=== PATIENT | female | born 1960 | race Caucasian/White ===

== ENCOUNTER 2019-07-27 12:01 | Emergency (ER) | payer MEDICAID, SELFPAY ==
[2019-07-27 12:04] VITALS: BP 159/74; PULSE 94; RESP 18; TEMP 36.8; O2SAT 92
--- NOTE | 2019-07-27 12:30 | DI.RAD_ITS ---
EXAM: XR CHEST 2V PA LATERAL INDICATION: cough, R rhonchi. COMPARISON: No exams were available for comparison TECHNIQUE: 2D digital imaging was performed. FINDINGS: There is a small opacity in the right lung base laterally. This may represent a small infiltrate or atelectasis. There are no other focal infiltrates. No pleural effusions or pneumothoraces are identi fied. The heart size and pulmonary vasculature are within normal limits. Age-appropriate degenerati ve changes are seen in the spine. IMPRESSION: Right basilar opacity which may represent atelectasis or pneumonia.
--- NOTE | 2019-07-27 12:31 | ED.GENADUL_ITS ---
Discharge Plan Disposition Patient Disposition: HOME Condition: Improving Discharge Details Chief Complaint: GenMedical Clinical Impression: Walking pneumonia Primary Care Provider: Magda,Local ED Provider: Supa Beck Home Meds and New Rx's Prescriptions: New cefdinir 300 mg capsule 300 mg PO Q12H 10 Days Qty: 20 RF: 0 Discharge Instructions Instructions: Pneumonia (ED) Additional Instructions: Continue small, frequent sips of fluids to maintain hydration. Return to the ER for difficulty breathing, persistent high fevers, or any other acute concerns. Please take antibiotics as prescribed. Tylenol and ibuprofen as needed for aches, pains, fever. Please follow-up with regular doctor for recheck if not improved in 5 days time. Stand Alone Forms: Work Release Medical Decision Making 59-year-old female presents from home with 1 week of cough, congestion, general malaise and fatigue. On exam she is afebrile, noted pulse 94, oxygenation 92 to 93% as well as rhonchi at the right base. Differential as includes pneumonia, bronchitis, influenza. Patient given DuoNeb, referred for laboratory testing and chest x-ray. White blood cell count slightly elevated 11.3, hematocrit 35. Chemistries with noted of slight elevation of the BUN at 21. Chest x-ray with right base opacity. Following fluids and inhaler, patient is improving. I will treat her for walking pneumonia with a course of cephalosporin. She is stable and appropriate for trial of outpatient management. HPI General Mode of arrival: ambulatory . Date/Time Provider Initiated Documentation: 07/27/19 12:02 . Limitations to Documentation: no limitations . Information obtained by: patient . History of Present Illness 59 year old F presents to the emergency department with the chief complaint of Cough, congestion, malaise for 1 week, described as moderate, and is localized to the chest. Patient reports no radiation. Patient started experiencing this day(s) and it has been constant. No relieving factors improve symptom(s), No exacerbating factors reported . Patient notes cough, malaise and weakness; denies chest pain and syncope. Patient did receive the following treatments prior to arrival, none Related Data Home Medications Medication Instructions Recorded Confirmed cefdinir 300 mg PO Q12H 10 Days #20 cap 07/27/19 Previous Rx's Medication Instructions Recorded cefdinir 300 mg PO Q12H 10 Days #20 cap 07/27/19 Allergies Allergy/AdvReac Type Severity Reaction Status Date / Time Sulfa (Sulfonamide Allergy Hives Unverified 07/27/19 12:08 Antibiotics) General Stated Complaint: GenMedical SARAH: 3 Review of Systems Narrative: Denies chest pain. She is a smoker. Sick contacts at work. No travel. 6 systems reviewed and otherwise negative [facility] Social History Smoking/Tobacco Use Status: Current every day Tobacco Type: cigarettes Alcohol Intake: never Drug use: Never Do you feel safe at home: Yes Exam Narrative Exam Narrative: GEN: awake, alert, oriented 3. Pleasant, well groomed, interactive. HEAD: Normocephalic, atraumatic ENT: Mucous membranes dry, oropharynx unremarkable, External ear exam unremarkable EYES: PERRL, EOMI NECK: Full ROM, no JOSEE, no menigismus CHEST/RESP: Nontender, right rhonchi, and expiratory wheeze present CARDIOVASCULAR: RRR, no murmur, rub dangelo. 2+ Rad pulse bilateral ABDOMEN: Soft, nontender, no mass. +Bowel sounds EXT: Full ROM, no edema, no rash Neuro: Grossly normal neurologic exam, conversant, interactive. Psych: Speech fluent, thoughts congruent, affect normal Course Vital Signs Vital signs: Vital Signs Temperature 36.8 C 07/27/19 12:04 Pulse 94 H 07/27/19 12:04 Respiratory Rate 18 07/27/19 12:04 Blood Pressure 159/74 H 07/27/19 12:04 Pulse Oximetry 92 L 07/27/19 12:04 Temperature 36.8 C 07/27/19 12:04 Temperature Source Skin 07/27/19 12:04 Pulse 94 H 07/27/19 12:04 Respiratory Rate 18 07/27/19 12:04 Respiratory Effort 07/27/19 12:08 Blood Pressure 159/74 H 07/27/19 12:04 Blood Pressure Position Sitting 07/27/19 12:04 Pulse Oximetry 92 L 07/27/19 12:04 Oxygen Delivery Method Room Air 07/27/19 12:04 Oxygen Flow Rate 0 07/27/19 12:04
[2019-07-27 12:52] LABS: HGB 11.6 g/dL (12.0-15.5); Mean Corp. HGB Concentration 33.1 g/dL (32.0-36.0); Mean Corpuscular Hemoglobin 29.5 pg (27.0-33.0); Mean Corpuscular Volume 89.1 fL (80-95); Mean Platelet Volume 8.7 fL (8.0-11.0); Platelet Count 344 x1000/uL (130-400); RBC 3.93 m/cumm (4.00-5.20); RBC Distribution Width 13.5 % (11.7-14.6); White Blood Cell Count 11.31 k/cumm (4.4-10.8)
[2019-07-27 13:09] LABS: Absolute Lymphocyte Count 2.15 k/cumm (1.2-3.4); Absolute Monocyte Count 0.79 k/cumm (0.11-0.7); Absolute Neutrophil Count 8.26 k/cumm (1.2-6.7); Atypical Lymphocytes % 2; Diff Comment Manual Differential; RBC Morphology Normal
[2019-07-27] MEDS: Albuterol/Ipratropium 3 ML UPD VIAL UPD (13:11)
[2019-07-27 13:14] LABS: ALT 37 U/L (14-59); AST 23 U/L (15-37); Albumin 2.7 g/dL (3.4-5.0); Alkaline Phosphatase 113 U/L (46-116); Anion Gap 6.4 mmol/L (3-11); BUN 21 mg/dL (7-18); Bilirubin, Total 0.4 mg/dL (0.2-1.0); CO2 31.6 mmol/L (21.0-32.0); CREATININE 0.95 mg/dL (0.55-1.02); Calcium 7.9 mg/dL (8.5-10.1); Chloride 102 mmol/L (98-107); Glucose 137 mg/dL (74-106); Magnesium 1.6 mg/dL (1.8-2.4); Potassium 4.2 mmol/L (3.5-5.1); Sodium 140 mmol/L (136-145); Total Protein 7.9 g/dL (6.4-8.2)
[2019-07-27] MEDS: Normal Saline 500 ML IV (13:35)
[2019-07-27] MEDS: cefTRIAXone 1 GM/50 ML BAG IVPB (13:36)
[2019-07-27 14:15] VITALS: BP 108/76; PULSE 82; TEMP 37; O2SAT 94
== END 2019-07-27 14:29 | disposition home or self-care (01) ==
PROVIDERS: Emergency Provider Emergency Medicine
DX: R53.83 Other fatigue (principal); J18.9 Pneumonia, unspecified organism; F17.210 Nicotine dependence, cigarettes, uncomplicated
CPT/HCPCS: 36415; 80053; 87449; 94640; 96361; 96365; 99284; 71046; 83735; 85025; J0696; J7620

== ENCOUNTER 2019-12-11 16:17 | Emergency (ER) | payer MEDICAID, SELFPAY ==
[2019-12-11 16:25] VITALS: BP 157/67; PULSE 103; RESP 20; TEMP 36.5; O2SAT 96
--- NOTE | 2019-12-11 16:31 | ED.GENADUL_ITS ---
Discharge Plan Disposition Patient Disposition: HOME Condition: Fair Discharge Details Chief Complaint: RashLesion Clinical Impression: Cellulitis, Contact dermatitis, Cutaneous fungal infection Primary Care Provider: Magda,Local ED Provider: Alice John Home Meds and New Rx's Prescriptions: New doxycycline hyclate 100 mg tablet 100 mg PO BID Qty: 14 RF: 0 clotrimazole 1 % ointment 1 applic TP BID 14 Days Qty: 56.7 RF: 0 No Action hydrocortisone 0.5 % Lotion 1 applic TOPICAL PRN PRNRF: 0 Discharge Instructions Instructions: Cellulitis (ED), Dermatitis (ED) Additional Instructions: You may use Tylenol and/or ibuprofen as needed for discomfort. 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 Please use the topical antifungal as prescribed, applies to hands and leg. Please take the antibiotics as prescribed, please take the entire course even if symptoms begin to improve. Try to elevate your lower extremities to help with swelling. I have placed a referral for primary care next week to be seen next week. Have also placed a referral to dermatology. If you develop fever/chills, increased pain, spreading of the redness or other new/worsening symptom please seek care urgently once again. Discharge Data Discharge Date/Time-TO BE ENTERED AT DEPARTURE: 12/11/19 17:44 Medical Decision Making <Carlin Callahan MD - Last Filed: 12/18/19 09:44> Patient seen, examined, and discussed with ZAIDA John. Concern for fungal skin infection with superimposed bacterial infection. Plan to treat with topical antifungal and oral antibacterial. Plan for follow- up with dermatology. I agree with treatment plan as discussed/documented. <ZAIDA Guerra - Last Filed: 12/14/19 22:05> Patient is a pleasant 59-year-old female presenting today with chief complaint of bilateral hand and left lower extremity rash. She reports that all of these rashes began proximally 1 month ago. She attributes to rushing deep bilateral hands to change in hands and her toes at work. Patient does work at [employer]. 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 Finds the rash does improve during these times. Has not noted severity of pain but does note itching in the hands. Is not any fevers or chills. Has not noted decreased ADLs associated with this rash. Patient also endorses a rash to the left lower extremity which is also been present for the past month and has been more consistent. She reports that she awoke 1 day to find fairly severe very erythematous rash. States that this area is burning. This rash is circumferential, spares the foot and stops below the knee. No known exposure. She has been using hydrocortisone cream without relief. Has been covering with ABD pads as this does weep. Patient does have serosanguineous fluid on her ABD pads. Patient does not have a local primary care. She does report that she has had DVTs hi storically but is not bursting any posterior calf tenderness. No known trauma. On exam, patient has a dry rash consistent with a contact dermatitis in the bilateral hands. She has no swelling. Does not appear consistent with cellulitis. No areas of swelling or fluctuance to suggest an abscess. She and I discussed avoidance and changing back to her previous hand order processing manager. We discussed basic basic skin care. Will refer for local primary care. Regard to the left lower extremity, and was confused this is cellulitis versus fungal. I did ask Dr. Callahan to evaluate this who feels that likely the patient suffering from both. He advised a topical antifungal as well as an oral antibiotic. I did discuss this plan with the patient who is in agreement. Dressing supplies were supplied by nursing staff. I did encourage elevation of the left lower extremity. She is given strict return precautions. I have asked that she follow-up with primary care in 1 week. All her questions and concerns were addressed and she is in agreement with plan. HPI <Carlin Callahan MD - Last Filed: 12/18/19 09:44> General Date/Time Provider Initiated Documentation: 12/11/19 16:31 . Related Data Home Medications Medication Instructions Recorded Confirmed clotrimazole 1 applic TP BID 14 Days #56.7 gm 12/11/19 doxycycline hyclate 100 mg PO BID #14 tab 12/11/19 hydrocortisone 1 applic TOPICAL PRN PRN 12/11/19 12/11/19 Previous Rx's Medication Instructions Recorded clotrimazole 1 applic TP BID 14 Days #56.7 gm 12/11/19 doxycycline hyclate 100 mg PO BID #14 tab 12/11/19 Allergies Allergy/AdvReac Type Severity Reaction Status Date / Time Sulfa (Sulfonamide Allergy Hives Unverified 12/11/19 16:28 Antibiotics) <ZAIDA Guerra - Last Filed: 12/14/19 22:05> General Mode of arrival: ambulatory . Limitations to Documentation: no limitations . Information obtained by: patient and RN notes reviewed . History of Present Illness 59 year old F presents to the emergency department with the chief complaint of Bilateral hand left lower extremity rash, described as moderate, with intensity rated at 7. Quality is described as burning (And itching), and is localized to the left, right, upper extremity and lower extremity. Patient reports no radiation. Patient started experiencing this month(s) (1) and it has been constant. No relieving factors improve symptom(s), Other factors that worsen symptoms (Has noted rash on hands to be worse with new hand order processing manager at work) . Patient notes no other symptoms.. Patient did receive the following treatments prior to arrival, other (Hydrocortisone cream) General Stated Complaint: RashLesion SARAH: 3 <ZAIDA Guerra - Last Filed: 12/14/19 22:05> Constitutional Constitutional: Reports as per HPI, Denies chills and Denies fever(s) Musculoskeletal Musculoskeletal: Reports as per HPI Integumentary/Breasts Skin/Breast: Reports as per HPI Neurologic Neurologic: Reports as per HPI, Denies sensory deficit and Denies paresthesias PFS <Carlin Callahan MD - Last Filed: 12/18/19 09:44> Medical History H/O deep venous thrombosis (Acute) Surgical History (Updated 12/11/19 @ 16:29 by Sharon Castillo) H/O section (Chronic) Social History Smoking/Tobacco Use Status: Current every day Tobacco Type: cigarettes Alcohol Intake: never Drug use: Never Substance use type: does not use Do you feel safe at home: Yes Do you feel safe in your relationship?: Yes <ZAIDA Guerra - Last Filed: 12/14/19 22:05> Const General: cooperative, healthy appearing, no acute distress, well developed and anxious Nutritional Appearance: well nourished and obese Orientation: alert and awake HENMA Head: normal to inspection Face and sinus: normal facial exam Resp Effort & Inspection: normal respiratory effort, able to speak in complete sentences and no respiratory distress Auscultation: clear to auscultation bilaterally Cardio Rate: regular rate Rhythm: regular rhythm Heart Sounds: S1 normal and S2 normal Skin General skin exam: dry skin (Dry intermittent rash on bilateral hands), no ecchymosis, erythema (Circumferentially left lower extremity), no fluctuance and hypertrophy (Left lower extremity) Neuro General: patient alert and patient awake Cognition: normal cognition Speech: speech normal Gait: normal gait Sensory Exam: no sensory deficits noted Extrem General: capillary refill normal, no joint enlargement, no pedal edema, no calf tenderness, normal gait and no limp Right upper extremity: abnormal to inspection (Dry rash to bilateral hands, good range of motion, brisk capillary refill a) Left upper extremity: abnormal to inspection (Rash otherwise exam normal) Psych Appearance: grossly normal and well kempt Mental Status: mental status grossly normal Speech and Movement: speech and movement normal <ZAIDA Guerra - Last Filed: 12/14/19 22:05> Vital Signs Vital signs: Vital Signs Temperature 36.5 C 12/11/19 16:25 Pulse 103 H 12/11/19 16:25 Respiratory Rate 20 12/11/19 16:25 Blood Pressure 157/67 H 12/11/19 16:25 Pulse Oximetry 96 12/11/19 16:25 Temperature 36.5 C 12/11/19 16:25 Temperature Source Skin 12/11/19 16:25 Pulse 103 H 12/11/19 16:25 Respiratory Rate 20 12/11/19 16:25 Blood Pressure 157/67 H 12/11/19 16:25 Blood Pressure Position Sitting 12/11/19 16:25 Pulse Oximetry 96 12/11/19 16:25 Oxygen Delivery Method Room Air 12/11/19 16:25 Oxygen Flow Rate 0 12/11/19 16:25 Pain Level 7 12/11/19 16:25
--- NOTE | 2019-12-12 11:37 | CMPROGNOTE_ITS ---
- If Service Date Differs Date of service: 12/12/19 Time of Service: 11:37 Care Management Progress Note At the request of ED provider, CM coordinates referral to [facility] and to Elva Moya MD, teledoc, of [facility] to assist Alesia in establishing care with a PCP. Alesia is seen in the ED on 12/11/2019 for cellulitis.
--- NOTE | 2019-12-12 11:37 | PDOC.ERCMPRO ---
- If Service Date Differs Date of service: 12/12/19 Time of Service: 11:37 Care Management Progress Note At the request of ED provider, CM coordinates referral to [facility] and to Elva Moya MD, teledoc, of [facility] to assist Alesia in establishing care with a PCP. Alesia is seen in the ED on 12/11/2019 for cellulitis.
== END 2019-12-11 17:44 | disposition home or self-care (01) ==
PROVIDERS: Emergency Provider Physician Assistant
DX: L03.116 Cellulitis of left lower limb (principal); L24.89 Irritant contact dermatitis due to other agents; B36.9 Superficial mycosis, unspecified
CPT/HCPCS: 99283

== ENCOUNTER 2022-06-12 16:49 | Emergency (ER) | payer MEDICAID, SELFPAY ==
[2022-06-12 17:15] VITALS: BP 137/64; PULSE 93; RESP 22; TEMP 36.4; O2SAT 85
[2022-06-12 17:48] VITALS: BP 128/60; PULSE 94; RESP 19; TEMP 36.7; O2SAT 98
--- NOTE | 2022-06-12 18:00 | DI.RAD_ITS ---
Exam(s) XR PORTABLE CHEST AP EXAM: XR PORTABLE CHEST AP lung apices over penetrated. CLINICAL HISTORY: cough, hypoxia TECHNIQUE: 2D digital imaging was performed. COMPARISON: CR XR CHEST 2V PA LATERAL from 07/27/2019 FINDINGS: LUNGS: Clear. No pleural abnormality seen. HEART: Normal size. AORTA: Normal diameter. BONES: Unremarkable for age. Soft tissues: Unremarkable. IMPRESSION: No acute findings. DATA REPOSITORY: RADIATION DOSE DELIVERED:
[2022-06-12 19:26] LABS: Abs Immature Grans 0.05 10^3/uL (0.0-0.06); Absolute Basophil Count 0.03 10^3/uL (0.0-0.2); Absolute Eosinophil Count 0.07 10^3/uL (0.0-0.7); Absolute Lymphocyte Count 0.92 10^3/uL (1.2-3.4); Absolute Monocyte Count 0.56 10^3/uL (0.1-0.8); Basophils % 0.4; Eosinophils % 0.9; HGB 14.3 g/dL (11.2-15.7); Immature Grans % 0.7; Lymphocytes % 12.2; MCH 29.4 pg (27.0-33.0); MCHC 31.8 % (32.0-36.0); MCV 92 fL (80-95); MPV 9.3 fL (8.0-11.0); Monocytes % 7.4; Neutrophils % 78.4; Platelet Count 224 10^3/uL (130-400); RBC 4.87 10^6/uL (3.93-5.22); RDW 14.5 % (11.7-14.6); RDW-SD 48.8 fL; WBC 7.53 10^3/uL (4.4-10.8)
[2022-06-12 19:28] VITALS: RESP 8
[2022-06-12] MEDS: Albuterol/Ipratropium 3 ML UPD VIAL 9 ML UPD (19:28)
[2022-06-12] MEDS: Dexamethasone 10 MG/ML VIAL IVP (19:29)
--- NOTE | 2022-06-12 19:29 | DI.VRAD_ITS ---
PROCEDURE INFORMATION: Exam: XR Chest Exam date and time: 06/12/2022 6:45 PM Age: 62 years old Clinical indication: Cough TECHNIQUE: Imaging protocol: Radiologic exam of the chest. Views: 1 view. COMPARISON: CR XR CHEST 2V PA LATERAL 07/27/2019 1:00 PM FINDINGS: Lungs: Unremarkable. No consolidation. Pleural spaces: Unremarkable. No pleural effusion. No pneumothorax. Heart/Mediastinum: Unremarkable. No cardiomegaly. Bones/joints: Unremarkable. IMPRESSION: No acute findings. Dictated and Authenticated by: Shawn Benz MD. Ordering:LYNSEY Quiroga MD
[2022-06-12 19:40] LABS: COVID-19 PCR Negative (Negative); Influenza A PCR Negative (Negative); Influenza B PCR Negative (Negative); RSV PCR Negative (Negative)
[2022-06-12 19:41] LABS: ALT 24 U/L (14-59); AST 24 U/L (15-37); Albumin 3.8 g/dL (3.4-5.0); Alkaline Phosphatase 97 U/L (46-116); Anion Gap 6.8 mmol/L (3-11); BUN 20 mg/dL (7-18); Bilirubin, Total 0.7 mg/dL (0.2-1.0); CO2 31.2 mmol/L (21.0-32.0); CREATININE 0.9 mg/dL (0.55-1.02); Chloride 100 mmol/L (98-107); Estimated GFR 72.28 (mL/min/1.73m2); Glucose 114 mg/dL (74-106); Potassium 4.3 mmol/L (3.5-5.1); Sodium 138 mmol/L (136-145)
[2022-06-12 19:42] LABS: Source Nasopharynx
--- NOTE | 2022-06-12 19:50 | ED.GENADUL_ITS ---
Discharge Plan Discharge Details Chief Complaint: SOB Primary Care Provider: None,None ED Provider: Junaid Castillo Home Meds and New Rx's Prescriptions: No Action hydrocortisone 0.5 % Lotion 1 applic TOPICAL PRN PRN doxycycline hyclate 100 mg tablet 100 mg PO BID Qty: 14 0RF Medical Decision Making 62-year-old female history of prior PE was on Coumadin for years has not been on Coumadin for 2 years given has not been able to obtain primary care follow-up presents with cough and wheeze over the past several days worsening today, noted to be hypoxic in the 80s on room air placed on nasal cannula improvement to the mid 90s speaking full sentences expiratory wheeze bilaterally. Nontoxic no acute distress. Patient counseled extensively that given her propensity for thromboembolic phenomenon she should be on an anticoagulant and I encouraged her to let us pursue CTA imaging today to rule out PEs patient is adamant she does not feel as if she is having a PE as it does not feel like her normal symptoms of thromboembolic phenomenon, patient is refusing CTA is amenable to labs and nebulized albuterol as well as steroid treatment will obtain labs chest x-ray breathing treatments disposition pending reassessment. 20: 45 patient resting comfortably feeling better however slightly increasing troponin. Counseled patient regarding findings and discussed admission for car diac evaluation patient is adamant that she would like to go home as it is [birth year] tomorrow. Patient is amenable to staying for 1 more troponin if her troponin is downtrending and she remains asymptomatic consider discharge home with close cardiology follow-up. HPI General Date/Time Provider Initiated Documentation: 06/12/22 18:03 . HPI Narrative: 62-year-old female history of PE was on Coumadin however moved a couple years ago was not able to obtain primary care has been off her anticoagulation for years, presents with cough and wheezing over the past several days worsening today Related Data Home Medications Medication Instructions Recorded Confirmed doxycycline hyclate 100 mg tablet 100 mg PO BID #14 tabs 12/11/19 hydrocortisone 0.5 % lotion 1 applic topical PRN PRN 12/11/19 12/11/19 Previous Rx's Medication Instructions Recorded doxycycline hyclate 100 mg tablet 100 mg PO BID #14 tabs 12/11/19 Allergies Allergy/AdvReac Type Severity Reaction Status Date / Time Sulfa (Sulfonamide Allergy Hives Unverified 12/11/19 16:28 Antibiotics) General Stated Complaint: SOB SARAH: 3 Review of Systems Narrative: Review of Systems Constitutional: negative Eyes: negative ENT: negative Cardiovascular: negative Respiratory: Cough, wheezing Gastrointestinal: negative : negative Musculoskeletal: negative Skin: negative Neurologic: negative Psych: negative PFSH All Active Problems (Updated 01/11/20 @ 00:01 by DEYSI PERES) Walking pneumonia (Acute) Medical History (Updated 01/11/20 @ 00:01 by DEYSI PERES) H/O deep venous thrombosis Surgical History (Updated 12/11/19 @ 16:29 by Sharon Castillo) H/O section Social History Smoking/Tobacco Use Status: Current every day Tobacco Type: cigarettes Smoking risk assessment performed?: Yes Alcohol Intake: never Drug use: Never Substance use type: does not use Do you feel safe at home: Yes Do you feel safe in your relationship?: Yes Exam Narrative Exam Narrative: Physical Examination General: alert, awake, cooperative, resting comfortably, no acute distress HEENT: normocephalic, atraumatic; PERRL, EOM intact, conjunctiva normal; no nasal discharge; moist mucous membranes, oral and pharyngeal mucosa normal, tolerating secretions Neck: supple, trachea midline; full ROM Chest: normal to inspection Respiratory: normal respiratory effort, speaking in full sentences, expiratory wheezing bilaterally Cardiac: regular rate, regular rhythm, S1S2 intact, no murmurs rubs or gallops GI: abdomen soft, non-tender, non-distended; no palpable mass or hepatosplenomegaly Skin: no lesions, rashes or trauma appreciated Neuro: AAOx3, normal speech, moving all extremities Extremities: Chronic appearing venous stasis and edema to level of shins bilaterally Psych: Appropriate mood and affect Course Vital Signs Vital signs: Vital Signs Temperature 36.4 C 06/12/22 17:15 Pulse 93 H 06/12/22 17:15 Respiratory Rate 22 06/12/22 17:15 Blood Pressure 137/64 06/12/22 17:15 Pulse Oximetry 85 L 06/12/22 17:15 Temperature 36.7 C 06/12/22 17:48 Temperature Source Skin 06/12/22 17:48 Pulse 94 H 06/12/22 17:48 Respiratory Rate 19 06/12/22 17:48 Blood Pressure 128/60 06/12/22 17:48 Blood Pressure Position Sitting 06/12/22 17:15 Pulse Oximetry 98 06/12/22 17:48 Oxygen Delivery Method Nasal Cannula 06/12/22 19:28 Oxygen Flow Rate 3 06/12/22 19:28 Pain Level 0 06/12/22 17:48 Lab/Test Results Lab/Test Results: Laboratory Tests Range/Units 06/12/22 06/12/22 06/12/22 18:30 19:04 19:04 WBC (4.4-10.8) 10^3/uL 7.53 RBC (3.93-5.22) 10^6/uL 4.87 Hgb (11.2-15.7) g/dL 14.3 Hct (36.0-46.0) % 45.0 MCV (80-95) fL 92 MCH (27.0-33.0) pg 29.4 MCHC (32.0-36.0) % 31.8 L RDW (11.7-14.6) % 14.5 Plt Count (130-400) 10^3/uL 224 MPV (8.0-11.0) fL 9.3 Immature Gran % 0.7 Neutrophils % 78.4 Lymphocytes % 12.2 Monocytes % 7.4 Eosinophils % 0.9 Basophils % 0.4 Nucleated RBC % (0.0-0.3) % 0.0 Absolute Neutrophils (1.2-6.7) 10^3/uL 5.90 Absolute Lymphocytes (1.2-3.4) 10^3/uL 0.92 L Absolute Monocytes (0.1-0.8) 10^3/uL 0.56 Absolute Eosinophils (0.0-0.7) 10^3/uL 0.07 Absolute Basophils (0.0-0.2) 10^3/uL 0.03 Sodium (136-145) mmol/L 138 Potassium (3.5-5.1) mmol/L 4.3 Chloride (98-107) mmol/L 100 Carbon Dioxide (21.0-32.0) mmol/L 31.2 Anion Gap (3-11) mmol/L 6.8 BUN (7-18) mg/dL 20 H Creatinine (0.55-1.02) mg/dL 0.9 Est GFR (CKD-EPI 2020) (mL/min/1.73m2) 72.28 Glucose (74-106) mg/dL 114 H Calcium (8.5-10.1) mg/dL 9.0 Total Bilirubin (0.2-1.0) mg/dL 0.7 AST (15-37) U/L 24 ALT (14-59) U/L 24 Alkaline Phosphatase (46-116) U/L 97 Total Protein (6.4-8.2) g/dL 9.0 H Albumin (3.4-5.0) g/dL 3.8 COVID-19 Source Nasopharynx SARS-CoV-2 (PCR) (Negative) Negative Influenza Type A (PCR) (Negative) Negative Influenza Type B (PCR) (Negative) Negative RSV (PCR) (Negative) Negative
[2022-06-12] MEDS: Albuterol HFA 8 GM 60 PUFF INH IH (22:33)
--- NOTE | 2022-06-12 23:22 | NUR.NOTE ---
referral to Care Management to establish pcp to f/u next week for shortness of breath.Nursing Note:
--- NOTE | 2022-06-13 16:01 | NUR.NOTE ---
pharmacy called to state that medicaid does not cover albuterol, but will cover ventolin. Conferred with Dr. Callahan who advised that would be an acceptable change.
== END 2022-06-12 21:57 | disposition left against medical advice (07) ==
PROVIDERS: Emergency Provider Emergency Medicine
DX: R05.1 Acute cough (principal); R06.02 Shortness of breath; Z20.822 Contact with and (suspected) exposure to COVID-19; Z53.29 Procedure and treatment not carried out because of patient's decision for other reasons
CPT/HCPCS: 80053; 87637; 96374; 99284; 71045; 85025; J1100; J7620

== ENCOUNTER 2022-06-16 10:18 | Outpatient (CLI) | payer MEDICAID, SELFPAY ==
--- NOTE | 2022-06-16 10:15 | RT.EKG_ITS ---
APPROVED REPORT Exam: Resting ECG Reason for Exam: hypoxic Patient Location: O HR:72 bpm ECG Measurements Heart Rate 72 AXIS IL 191 P 69 QRSd 95 QRS 54 QT 398 T 77 QTc 436 Conclusion Sinus rhythm...normal P axis, V-rate 50- [address] elevation, inferior leads...ST >0.06mV, II III aVF Baseline wander in lead(s) V4
== END 2022-06-16 10:19 | disposition home or self-care (01) ==
LOC: DI.CM 10:22
PROVIDERS: Visit Provider Nurse Practitioner Family
DX: R09.02 Hypoxemia (principal)
CPT/HCPCS: 93010

== ENCOUNTER 2022-06-16 16:49 | Inpatient (IN) | payer MEDICAID, SELFPAY ==
[2022-06-16] VITALS (41 sets, daily range): BP systolic 116–156; BP diastolic 43–110; PULSE 71–90; RESP 14–31; TEMP 36.4–36.9; O2SAT 83–99
--- NOTE | 2022-06-16 17:30 | DI.CT_ITS ---
Exam(s) CT CHEST PE CTA EXAM: CT CHEST PE CTA CLINICAL HISTORY: chest pain hypoxia. TECHNIQUE: Imaging Protocol: CT angiography of the chest was performed using pulmonary embolus karan col. Multi planar reconstructions were performed. CONTRAST MATERIAL: Intravenous: Omnipaque 350 Contrast volume: 100 cc COMPARISON: CR,XR XR PORTABLE CHEST AP from 06/12/2022 FINDINGS: CHEST: PULMONARY ARTERIES: There are no intraluminal filling defects to suggest acute pulmonary emboli. LUNGS: Mild benign-appearing increased markings are noted in the lateral basal segment of the right l ower lobe. No truly confluent infiltrate and no evidence of obvious pulmonary infarction. No pleura l effusions. No focal findings in the trachea. Thin sys strand in the right mainstem bronchus noted which is probably mucus.. MEDIASTINUM: There is no hilar nor mediastinal adenopathy. Visualized thyroid unremarkable. CARDIAC: Heart size is upper normal. There is no pericardial effusion.Caliber of the thoracic aorta is within normal limits. No dissection there is no significant shift of the interventricular septum. PARTIALLY VISUALIZED UPPERMOST ABDOMEN: No obvious findings OSSEOUS: No significant osseous lesions.. IMPRESSION: 1. No evidence of acute pulmonary emboli. No evidence of pulmonary infarction.No pleural effusions. 2. Mild increased markings in the right lower lobe. No associated pleural effusion. Left lung clear . No significant pulmonary nodules. No intrathoracic adenopathy. RADIATION DOSE DELIVERED: 795.15mGy.cm Total DLP DATA REPOSITORY: All CT scans at this facility are submitted to the National Radiology Data Registry (NRDR) Dose Index Registry (DIR) with the [employer] ([employer]). RADIATION OPTIMIZATION: All CT scans at this facility use at least one of these dose optimization te chniques: automated exposure control; mA and/or kV adjustment per patient size (includes targeted exa ms where dose is matched to clinical indication); or iterative reconstruction.
--- NOTE | 2022-06-16 17:45 | RT.EKG_ITS ---
APPROVED REPORT Exam: Resting ECG Reason for Exam: chest pain Patient Location: E HR:75 bpm ECG Measurements Heart Rate 75 AXIS ID 193 P 51 QRSd 87 QRS 30 QT 382 T 68 QTc 426 Conclusion Sinus rhythm. Anteroseptal infarct, age indeterminate. Nonspecific st changess.
[2022-06-16] MEDS: methylPREDNISolone SUCC 125 MG VIAL 80 MG IVP (18:30)
[2022-06-16 19:07] LABS: Abs Immature Grans 0.11 10^3/uL (0.0-0.06); Absolute Basophil Count 0.04 10^3/uL (0.0-0.2); Absolute Lymphocyte Count 2.63 10^3/uL (1.2-3.4); Absolute Neutrophil Count 5.16 10^3/uL (1.2-6.7); Basophils % 0.5; Eosinophils % 1.2; HCT 44.3 % (36.0-46.0); HGB 14.2 g/dL (11.2-15.7); Immature Grans % 1.3; Lymphocytes % 30.4; MCH 29.8 pg (27.0-33.0); MCHC 32.1 % (32.0-36.0); MCV 93 fL (80-95); MPV 9.1 fL (8.0-11.0); Monocytes % 6.9; Neutrophils % 59.7; Platelet Count 245 10^3/uL (130-400); RBC 4.77 10^6/uL (3.93-5.22); RDW 14.6 % (11.7-14.6); RDW-SD 49.2 fL; WBC 8.64 10^3/uL (4.4-10.8)
[2022-06-16] MEDS: Normal Saline Flush 10 ML SYR IVP (19:25)
[2022-06-16] MEDS: Omnipaque 350 MG/ML 100 ML BTL IJ (19:26)
[2022-06-16] MEDS: Normal Saline - Diluent 50 ML VIAL IJ (19:27)
[2022-06-16 19:32] LABS: ALT 29 U/L (14-59); AST 21 U/L (15-37); Albumin 3.6 g/dL (3.4-5.0); Alkaline Phosphatase 97 U/L (46-116); Anion Gap 3.6 mmol/L (3-11); BUN 25 mg/dL (7-18); Bilirubin, Total 0.3 mg/dL (0.2-1.0); CO2 34.4 mmol/L (21.0-32.0); CREATININE 0.8 mg/dL (0.55-1.02); Calcium 9.3 mg/dL (8.5-10.1); Chloride 104 mmol/L (98-107); Estimated GFR 83.26 (mL/min/1.73m2); Glucose 115 mg/dL (74-106); NT-proBNP 60 pg/mL (<300); Sodium 142 mmol/L (136-145); Total Protein 8.8 g/dL (6.4-8.2); Troponin I < 50 ng/L (<or=60)
--- NOTE | 2022-06-16 19:46 | DI.VRAD_ITS ---
PROCEDURE INFORMATION: Exam: CTA Chest With Contrast Exam date and time: 06/16/2022 7:23 PM Age: 62 years old Clinical indication: Other: Chest pain hypoxia TECHNIQUE: Imaging protocol: Computed tomographic angiography of the chest with contrast. 3D rendering (Not supervised by radiologist): MIP and/or 3D reconstructed images were created by the technologist. Contrast material: OMNIPAQUE 350; Contrast volume: 100 ml; Contrast route: INTRAVENOUS (IV); COMPARISON: XR PORTABLE CHEST AP 06/12/2022 6:45 PM FINDINGS: Pulmonary arteries: No pulmonary emboli. Aorta: No aortic aneurysm. No aortic dissection. Lungs: Minimal subsegmental atelectasis versus scarring in the right lower lobe. No consolidation. No masses. Pleural spaces: Unremarkable. No pneumothorax. No pleural effusion. Heart: Unremarkable. No cardiomegaly. No pericardial effusion. Lymph nodes: Unremarkable. No enlarged lymph nodes. Bones/joints: Unremarkable. No acute fracture. Soft tissues: Unremarkable. Faint simple cyst in the liver suspected IMPRESSION: No acute findings. Dictated and Authenticated by: Luther Lowery MD. Ordering:CHRISTOPHER Tena MD
[2022-06-16] MEDS: Albuterol/Ipratropium 3 ML UPD VIAL 6 ML UPD (20:04)
[2022-06-16 21:48] LABS: BE (Venous) 8 mmol/L (-2-3); HCO3 (Venous) 34 mmol/L (23-28); O2 Sat (Venous) 62 %; TCO2 (Venous) 31 mmol/L (24-29); pH (Venous) 7.35 (7.31-7.41); pO2 (Venous) 32 mmHg
[2022-06-16 21:50] LABS: pCO2 (Venous) 61 mmHg (41-51)
[2022-06-16] MEDS: Albuterol 2.5 MG/3 ML INH SOLN VIAL UPD (21:56)
[2022-06-16] MEDS: Doxycycline Hyclate 100 MG CAP PO (21:56)
--- NOTE | 2022-06-16 22:06 | W.PM.HP.N ---
Date of service: 06/16/22 Time of Service: 22:06 Assessment and Plan Assessment and plan (1) Acute respiratory failure with hypoxia and hypercarbia: Start date: 06/16/22 Status: Acute Assessment and plan: This is a 62-year-old lady being admitted for hypoxemia and slight hypercarbia which appears to be acute on chronic. She is a smoker with increased upper airway plugging which is clearing slowly with nebulizer treatments and Solu-Medrol IV. She is not requiring oxygen supplementation which will be placed at a lower level with her CO2 retention. She is obese which also may contribute to weight related respiratory failure. She most likely does have sleep apnea. She also may have bronchitis and will be placed on doxycycline. She states that she will not stay more than 24 hours but we will treat her aggressively as an inpatient with outpatient care hopefully to include smoking cessation, weight loss and follow-up with pulmonary and sleep lab. She is a full code. (2) Tobacco abuse disorder: Status: Chronic Assessment and plan: Advised smoking sensation. (3) COPD exacerbation: Status: Chronic Assessment and plan: Patient has evidence of chronic COPD with CO2 retention. She should follow-up with pulmonology and sleep lab with probable sleep apnea with her morbid obesity. She should be more aggressive with treatment of these problems. This also will increase her chances of thromboembolic events which appear to be an inherited tendency. Patient should go back on Coumadin. (4) Thromboembolic disorder: Status: Chronic Assessment and plan: Patient needs return to Coumadin therapy with close follow-up. Weight loss and tobacco cessation would also be advised. History of Present Illness History of Present Illness Chief Complaint: Dyspnea upon exertion with hypoxemia Narrative: This is a 62-year-old female patient who did have been [place] with most of her care rendered at [facility] who moved to this area about 5 years ago and never has reestablished with a physician. She was on Coumadin most her life having recurrent pulmonary emboli and thromboembolic events which would respond only to Coumadin and not Eliquis or other treatments. She is overweight and smokes tobacco. She reported to the ED with increasing shortness of breath and cough as well as hypoxemia which had been persisting over the last several days. She had no significant fever. She was seen in the ED but decided to go home and after going to her primary care physician's office the day of admission she was sent back to the ED with hypoxemia. In the ED she was found to have extreme bronchospasm and hypoxemia and responded to nebulizers frequently. When I saw the patient she was speaking comfortably but had continued expiratory wheezing and upper airway noise with prolonged expiration and hypoxemia. She agreed to stay for continued treatment with p.o. doxycycline and IV Solu-Medrol as well as frequent nebulizer treatments. She does not want to be on home O2. She does wish to go back on Coumadin and will establish this with her local PCP. She is a full code but does seem to refuse care and make risky decisions on healthcare and lifestyle. Review of Systems Narrative: 13 point review of systems otherwise unrevealing or stable. PFSH All Active Problems (Updated 06/17/22 @ 07:45 by Andriy Armijo) Thromboembolic disorder (Chronic) COPD exacerbation (Chronic) Tobacco abuse disorder (Chronic) Acute respiratory failure with hypoxia and hypercarbia (Acute) Walking pneumonia (Acute) Hypoxia (Acute) Medical History (Updated 06/17/22 @ 07:45 by Andriy Armijo) H/O deep venous thrombosis Surgical History H/O section Social History Smoking/Tobacco Use Status: Current every day Tobacco Type: cigarettes Smoking risk assessment performed?: Yes Alcohol Intake: never Drug use: Never Substance use type: does not use Do you feel safe at home: Yes Do you feel safe in your relationship?: Yes Meds Allergies and Home Medications Allergies Allergy/AdvReac Type Severity Reaction Status Date / Time Sulfa (Sulfonamide Allergy Hives Unverified 06/16/22 09:46 Antibiotics) Home Medications Medication Instructions Recorded Confirmed Type albuterol sulfate 90 mcg/actuation 2 puff inhalation Q6H PRN 06/12/22 Rx aerosol inhaler shortness of breath or wheezing #6.7 grams Exam Narrative Exam Narrative: General: Patient appears older than stated age, morbidly obese, alert and oriented x3 and speaking comfortably without short sentences. She is in no acute distress. HEENT: Normocephalic, coarsened facial features. Eyes with pupils equal and react to light symmetrically, extraocular movement intact and sclera anicteric. Oropharynx with dry mucosa. Many missing teeth with discoloration and caries. Neck: Supple without JVD. Back: Stooped posture without CVA tenderness. Lungs: Bronchovesicular breath sounds diffusely with inspiration with no focalizing rales, markedly prolonged expiratory phase with prolonged expiratory wheeze and rhonchi as well as coarse crackles not focalizing. Decreased aeration bilaterally. Heart: Regular rate and rhythm with no murmurs gallops appreciated. Breast: Exam deferred. Abdomen: Obese with large pannus, soft and nontender to palpation with no palpable hepatosplenomegaly. Genitalia/rectal: Exam deferred. Extremities: Brawny, nonpitting edema over left more than right lower extremity with skin atrophy circumferentially more on the left than right. Left is 3-4+ swelling and right is 2-3+ swelling. No ulcerations but dry atrophic scars over left leg. Erythema over left leg. Hyperpigmentation and hypopigmentation over left leg. Fair capillary refill. No clubbing or cyanosis. Skin: Skin tears over lower extremities, otherwise normal color, warm and dry. Neuro: Cranial nerves II through XII gross intact, no focalized motor deficits. Psych: Slightly agitated and flattened affect being very demanding and wanting to control decision making. Mood essentially normal. No abnormal thought processes. Remote and recent memory intact. Results Imaging Imaging Studies: Exam: CTA Chest With Contrast Exam date and time: 06/16/2022 7:23 PM Age: 62 years old Clinical indication: Other: Chest pain hypoxia TECHNIQUE: Imaging protocol: Computed tomographic angiography of the chest with contrast. 3D rendering (Not supervised by radiologist): MIP and/or 3D reconstructed images were created by the technologist. Contrast material: OMNIPAQUE 350; Contrast volume: 100 ml; Contrast route: INTRAVENOUS (IV);? COMPARISON: XR PORTABLE CHEST AP 06/12/2022 6:45 PM FINDINGS: Pulmonary arteries: No pulmonary emboli. Aorta: No aortic aneurysm. No aortic dissection. Lungs:? Minimal subsegmental atelectasis versus scarring in the right lower lobe. No consolidation. No masses. Pleural spaces: Unremarkable. No pneumothorax. No pleural effusion. Heart: Unremarkable. No cardiomegaly. No pericardial effusion. Lymph nodes: Unremarkable. No enlarged lymph nodes. Bones/joints: Unremarkable. No acute fracture. Soft tissues: Unremarkable. Faint simple cyst in the liver suspected IMPRESSION: No acute findings. Labs Result diagrams: 06/17/22 06:32 06/17/22 06:32 Labs: Laboratory Results - last 24 hr 06/16/22 06/16/22 06/16/22 19:00 19:00 20:42 WBC 8.64 RBC 4.77 Hgb 14.2 Hct 44.3 MCV 93 MCH 29.8 MCHC 32.1 RDW 14.6 Plt Count 245 MPV 9.1 Immature Gran % 1.3 Neutrophils % 59.7 Lymphocytes % 30.4 Monocytes % 6.9 Eosinophils % 1.2 Basophils % 0.5 Nucleated RBC % 0.0 Absolute Neutrophils 5.16 Absolute Lymphocytes 2.63 Absolute Monocytes 0.60 Absolute Eosinophils 0.10 Absolute Basophils 0.04 VBG pH VBG pCO2 VBG pO2 VBG HCO3 VBG Total CO2 VBG O2 Saturation VBG Base Excess Sodium 142 Potassium 4.0 Chloride 104 Carbon Dioxide 34.4 H Anion Gap 3.6 BUN 25 H Creatinine 0.8 Est GFR (CKD-EPI 2020) 83.26 Glucose 115 H Calcium 9.3 Total Bilirubin 0.3 AST 21 ALT 29 Alkaline Phosphatase 97 Troponin I < 50 Cancelled NT-Pro-B Natriuret Pep 60 Total Protein 8.8 H Albumin 3.6 06/16/22 21:44 WBC RBC Hgb Hct MCV MCH MCHC RDW Plt Count MPV Immature Gran % Neutrophils % Lymphocytes % Monocytes % Eosinophils % Basophils % Nucleated RBC % Absolute Neutrophils Absolute Lymphocytes Absolute Monocytes Absolute Eosinophils Absolute Basophils VBG pH 7.35 VBG pCO2 61 H* VBG pO2 32 VBG HCO3 34 H VBG Total CO2 31 H VBG O2 Saturation 62 VBG Base Excess 8 H Sodium Potassium Chloride Carbon Dioxide Anion Gap BUN Creatinine Est GFR (CKD-EPI 2020) Glucose Calcium Total Bilirubin AST ALT Alkaline Phosphatase Troponin I NT-Pro-B Natriuret Pep Total Protein Albumin Last Vital Signs Temp 36.9 C 06/16/22 17:18 Pulse 83 06/16/22 20:32 Resp 26 H 06/16/22 20:18 BP 116/43 L 06/16/22 20:32 Pulse Ox 89 L 06/16/22 20:32 Time Spent Time spent with Patient: >75 minutes Time was spent: preparing to see the patient(eg.review tests), obtaining and/or reviewing separately otained hiistory, ordering medications,tests, procedures, indepentently interpreting results, counseling the patient and care coordination
--- NOTE | 2022-06-16 22:27 | W.ED.GENAD ---
Discharge Plan Disposition Patient Disposition: Admit to [facility] Condition: Serious Discharge Details Clinical Impression: COPD exacerbation, Acute respiratory failure with hypoxia and hypercarbia, Tobacco abuse disorder Primary Care Provider: None,None ED Provider: Mallika Melton Home Meds and New Rx's Prescriptions: No Action albuterol sulfate 90 mcg/actuation HFA aerosol inhaler 2 puff inhalation Q6H PRN (Reason: shortness of breath or wheezing) Qty: 6.7 0RF Medical Decision Making This 62-year-old female who presents with shortness of breath and some intermittent chest discomfort presents moderate respiratory distress CTA was ordered secondary to comorbidities which does not show acute abnormality per radiology interpretation my review Troponin and BNP are negative, given patient's history of tobacco abuse and current presentation, I suspect that she is in acute respiratory failure secondary to bronchitis with likely history of undiagnosed COPD She has hypoxic upon arrival, 89% on room air After 3 DuoNeb treatments, patient is 86% resting, with ambulation she desats to 81%, she is not moving air now and initially her lungs were very tight She will receive another albuterol nebulizer treatment She received 80 mg of Solu-Medrol for likely COPD She will receive doxycycline 100 mg p.o. She has no leukocytosis or evidence of infectious etiology of symptoms Secondary to hypoxic respiratory failure, will start patient on oxygen, she is on 2 L currently Case was discussed with Dr. Armijo is willing to admit patient at this time Diagnostic labs were reviewed by me and with patient EKG does not show evidence of acute abnormality Will be admitted to the hospital on telemetry monitoring HPI General Date/Time Provider Initiated Documentation: 06/16/22 17:22. HPI Narrative: This 62-year-old female with history of coagulopathy previously anticoagulated on Coumadin for history of pulmonary embolism presents with report of shortness of breath with upper respiratory symptoms that started 1 week ago. She is having shortness of breath with any sort of exertion. She denies any fever or chills. She denies any chest discomfort or new calf pain or swelling. She does smoke tobacco on a daily basis. She denies any additional illicit drug use. Sugar self on Coumadin approximately 7 years ago. Does not currently have a primary care physician. Related Data Home Medications Medication Instructions Recorded Confirmed albuterol sulfate 90 mcg/actuation 2 puff inhalation Q6H PRN 06/12/22 aerosol inhaler shortness of breath or wheezing #6.7 grams Previous Rx's Medication Instructions Recorded albuterol sulfate 90 mcg/actuation 2 puff inhalation Q6H PRN 06/12/22 aerosol inhaler shortness of breath or wheezing #6.7 grams Allergies Allergy/AdvReac Type Severity Reaction Status Date / Time Sulfa (Sulfonamide Allergy Hives Unverified 06/16/22 09:46 Antibiotics) General Stated Complaint: SOB SARAH: 3 Review of Systems All systems reviewed & are unremarkable except as noted in HPI and below PFSH All Active Problems (Updated 06/16/22 @ 22:32 by ZAIDA Horn) COPD exacerbation (Acute) Tobacco abuse disorder (Acute) Acute respiratory failure with hypoxia and hypercarbia (Acute) Walking pneumonia (Acute) Hypoxia (Acute) Medical History (Updated 06/16/22 @ 22:32 by ZAIDA Horn) H/O deep venous thrombosis Surgical History (Updated 12/11/19 @ 16:29 by Sharon Castillo) H/O section Social History Smoking/Tobacco Use Status: Current every day Tobacco Type: cigarettes Smoking risk assessment performed?: Yes Alcohol Intake: never Drug use: Never Substance use type: does not use Do you feel safe at home: Yes Do you feel safe in your relationship?: Yes Exam Const General: cooperative, comfortable and no acute distress Eyes Sclera: sclerae normal Resp Effort & Inspection: tachypneic Auscultation: diminished lung sounds and wheezes Other: Moderate respiratory distress Cardio Rate: regular rate Rhythm: regular rhythm GI Inspection: normal to inspection Skin General skin exam: no rashes or lesions noted Neuro General: patient alert and patient oriented x3 Extrem Other: 1+ edema to bilateral lower extremities, neurovascularly intact Course Vital Signs Vital signs: Vital Signs Temperature 36.9 C 06/16/22 17:18 Pulse 81 06/16/22 17:18 Respiratory Rate 22 06/16/22 17:18 Blood Pressure 150/77 H 06/16/22 17:18 Pulse Oximetry 86 L 06/16/22 17:18 Temperature 36.9 C 06/16/22 17:18 Temperature Source Skin 06/16/22 17:18 Pulse 83 06/16/22 20:32 Pulse 77 06/16/22 20:10 Respiratory Rate 26 H 06/16/22 20:18 Respiratory Effort 06/16/22 17:28 Blood Pressure 116/43 L 06/16/22 20:32 Blood Pressure Mean 62 06/16/22 20:32 Blood Pressure Position Sitting 06/16/22 17:18 Pulse Oximetry 89 L 06/16/22 20:32 Oxygen Delivery Method Room Air 06/16/22 17:18 Oxygen Flow Rate 0 06/16/22 17:18 Pain Level 0 06/16/22 17:18 Lab/Test Results Lab/Test Results: Laboratory Tests Range/Units 06/16/22 06/16/22 06/16/22 19:00 19:00 20:42 WBC (4.4-10.8) 10^3/uL 8.64 RBC (3.93-5.22) 10^6/uL 4.77 Hgb (11.2-15.7) g/dL 14.2 Hct (36.0-46.0) % 44.3 MCV (80-95) fL 93 MCH (27.0-33.0) pg 29.8 MCHC (32.0-36.0) % 32.1 RDW (11.7-14.6) % 14.6 Plt Count (130-400) 10^3/uL 245 MPV (8.0-11.0) fL 9.1 Immature Gran % 1.3 Neutrophils % 59.7 Lymphocytes % 30.4 Monocytes % 6.9 Eosinophils % 1.2 Basophils % 0.5 Nucleated RBC % (0.0-0.3) % 0.0 Absolute Neutrophils (1.2-6.7) 10^3/uL 5.16 Absolute Lymphocytes (1.2-3.4) 10^3/uL 2.63 Absolute Monocytes (0.1-0.8) 10^3/uL 0.60 Absolute Eosinophils (0.0-0.7) 10^3/uL 0.10 Absolute Basophils (0.0-0.2) 10^3/uL 0.04 VBG pH (7.31-7.41) VBG pCO2 (41-51) mmHg VBG pO2 mmHg VBG HCO3 (23-28) mmol/L VBG Total CO2 (24-29) mmol/L VBG O2 Saturation % VBG Base Excess (-2-3) mmol/L Sodium (136-145) mmol/L 142 Potassium (3.5-5.1) mmol/L 4.0 Chloride (98-107) mmol/L 104 Carbon Dioxide (21.0-32.0) mmol/L 34.4 H Anion Gap (3-11) mmol/L 3.6 BUN (7-18) mg/dL 25 H Creatinine (0.55-1.02) mg/dL 0.8 Est GFR (CKD-EPI 2020) (mL/min/1.73m2) 83.26 Glucose (74-106) mg/dL 115 H Calcium (8.5-10.1) mg/dL 9.3 Total Bilirubin (0.2-1.0) mg/dL 0.3 AST (15-37) U/L 21 ALT (14-59) U/L 29 Alkaline Phosphatase (46-116) U/L 97 Troponin I (<or=60) ng/L < 50 Cancelled NT-Pro-B Natriuret Pep (<300) pg/mL 60 Total Protein (6.4-8.2) g/dL 8.8 H Albumin (3.4-5.0) g/dL 3.6 Range/Units 06/16/22 21:44 WBC (4.4-10.8) 10^3/uL RBC (3.93-5.22) 10^6/uL Hgb (11.2-15.7) g/dL Hct (36.0-46.0) % MCV (80-95) fL MCH (27.0-33.0) pg MCHC (32.0-36.0) % RDW (11.7-14.6) % Plt Count (130-400) 10^3/uL MPV (8.0-11.0) fL Immature Gran % Neutrophils % Lymphocytes % Monocytes % Eosinophils % Basophils % Nucleated RBC % (0.0-0.3) % Absolute Neutrophils (1.2-6.7) 10^3/uL Absolute Lymphocytes (1.2-3.4) 10^3/uL Absolute Monocytes (0.1-0.8) 10^3/uL Absolute Eosinophils (0.0-0.7) 10^3/uL Absolute Basophils (0.0-0.2) 10^3/uL VBG pH (7.31-7.41) 7.35 VBG pCO2 (41-51) mmHg 61 H* VBG pO2 mmHg 32 VBG HCO3 (23-28) mmol/L 34 H VBG Total CO2 (24-29) mmol/L 31 H VBG O2 Saturation % 62 VBG Base Excess (-2-3) mmol/L 8 H Sodium (136-145) mmol/L Potassium (3.5-5.1) mmol/L Chloride (98-107) mmol/L Carbon Dioxide (21.0-32.0) mmol/L Anion Gap (3-11) mmol/L BUN (7-18) mg/dL Creatinine (0.55-1.02) mg/dL Est GFR (CKD-EPI 2020) (mL/min/1.73m2) Glucose (74-106) mg/dL Calcium (8.5-10.1) mg/dL Total Bilirubin (0.2-1.0) mg/dL AST (15-37) U/L ALT (14-59) U/L Alkaline Phosphatase (46-116) U/L Troponin I (<or=60) ng/L NT-Pro-B Natriuret Pep (<300) pg/mL Total Protein (6.4-8.2) g/dL Albumin (3.4-5.0) g/dL Critical Care Time Critical Care Time Critical Care Time: Yes Total Critical Care Time: 45 Attestation: Approximately 45 minutes of critical care time secondary to acute hypoxic respiratory failure, 2 L of oxygen supplemented, CTA diagnostic imaging interpretation reviewed Diagnostic lab interpretation and review, telemetry monitoring, admission to the hospital, DuoNeb administration, Solu-Medrol administration
[2022-06-16 22:36] LABS: COVID-19 PCR Negative (Negative); Influenza A PCR Negative (Negative); Influenza B PCR Negative (Negative); RSV PCR Negative (Negative)
[2022-06-16 22:40] LABS: Source Nasopharynx
[2022-06-16 23:01] LABS: TSH (W/Ref FT4) 2.03 uIU/mL (0.36-3.74)
[2022-06-17] VITALS (15 sets, daily range): BP systolic 126–165; BP diastolic 64–77; PULSE 70–111; RESP 4–32; TEMP 36.4–36.8; O2SAT 84–99
[2022-06-17] MEDS: Albuterol/Ipratropium 3 ML UPD VIAL UPD ×3 (00:13→11:46)
[2022-06-17] MEDS: Normal Saline 1,000 ML 100 ML IV (00:38)
[2022-06-17] MEDS: methylPREDNISolone SUCC 40 MG VIAL 80 MG IVP (02:45)
[2022-06-17 06:56] LABS: HCT 43.2 % (36.0-46.0); HGB 13.5 g/dL (11.2-15.7); MCH 29.2 pg (27.0-33.0); MCHC 31.3 % (32.0-36.0); MCV 94 fL (80-95); MPV 9.2 fL (8.0-11.0); Platelet Count 241 10^3/uL (130-400); RBC 4.62 10^6/uL (3.93-5.22); RDW 14.6 % (11.7-14.6); RDW-SD 49.4 fL
[2022-06-17 07:13] LABS: ALT 23 U/L (14-59); AST 15 U/L (15-37); Albumin 3.4 g/dL (3.4-5.0); Alkaline Phosphatase 88 U/L (46-116); Anion Gap 8.2 mmol/L (3-11); BUN 25 mg/dL (7-18); Bilirubin, Total 0.2 mg/dL (0.2-1.0); CO2 31.8 mmol/L (21.0-32.0); CREATININE 0.8 mg/dL (0.55-1.02); Calcium 9.3 mg/dL (8.5-10.1); Chloride 101 mmol/L (98-107); Estimated GFR 83.26 (mL/min/1.73m2); Glucose 147 mg/dL (74-106); Potassium 4.7 mmol/L (3.5-5.1); Sodium 141 mmol/L (136-145); Total Protein 8.4 g/dL (6.4-8.2)
[2022-06-17] MEDS: predniSONE 20 MG TAB 40 MG PO (08:42)
[2022-06-17] MEDS: Enoxaparin 40 MG/0.4 ML SYR SC (08:42)
[2022-06-17] MEDS: Doxycycline Hyclate 100 MG CAP PO (08:42)
--- NOTE | 2022-06-17 10:15 | W.PM.DS.N ---
Date of service: 06/17/22 Time of Service: 10:17 DS: Diagnosis Discharge Diagnosis (1) Acute respiratory failure with hypoxia and hypercarbia: Status: Acute (2) Tobacco abuse disorder: Status: Chronic (3) COPD exacerbation: Status: Chronic (4) Thromboembolic disorder: Status: Chronic Discharge Plan Disposition Patient Disposition: Home Condition: Serious Condition: Improving Discharge Details Reason For Visit: Acute Respiratory Failure,Hypoxemia Admit Date/Time: 06/16/22 22:08 Admit Provider: Andriy Armijo Attending Provider: Andriy Armijo Primary Care Provider: None,None Home Meds and New Rx's Prescriptions: No Action albuterol sulfate 90 mcg/actuation HFA aerosol inhaler 2 puff inhalation Q6H PRN (Reason: shortness of breath or wheezing) Qty: 6.7 0RF DS: Data Vitals/I&O Vitals and I&O: Vital Signs Temperature 36.4 C L 06/17/22 07:39 Temperature Source Tympanic 06/17/22 07:39 Pulse 71 06/17/22 07:39 Pulse Rhythm Regular 06/16/22 23:40 Pulse 88 06/16/22 22:40 Respiratory Rate 18 06/17/22 07:39 Respiratory Effort Labored 06/17/22 00:31 Respiratory Depth Normal 06/17/22 00:31 Respiratory Pattern Tachypnea 06/17/22 00:31 Blood Pressure 126/77 06/17/22 07:39 Blood Pressure Mean 98 06/16/22 22:32 Blood Pressure Position Sitting 06/16/22 17:18 Pulse Oximetry 94 06/17/22 09:07 Oxygen Delivery Method Nasal Cannula 06/17/22 09:07 Oxygen Flow Rate 3 06/17/22 09:07 Pain Level 0 06/17/22 02:58 Comment 06/17/22 00:00 Intake & Output 06/16/22 06/16/22 06/17/22 11:59 23:59 11:59 Intake Total 360 / 360 Output Total 100 / 100 Balance 260 / 260 Weight 141.521 kg Intake: Oral 360 / 360 Output: Urine 100 / 100 Other: Urine Color Yellow Urine Appearance Clear Clear Voiding Methods Toilet Data Completed and Pending Labs on day of discharge: Labs from last 24 hours 06/17/22 06/17/22 06/16/22 06:32 06:32 21:55 WBC 6.10 RBC 4.62 Hgb 13.5 Hct 43.2 MCV 94 MCH 29.2 MCHC 31.3 L RDW 14.6 Plt Count 241 MPV 9.2 Immature Gran % Neutrophils % Lymphocytes % Monocytes % Eosinophils % Basophils % Nucleated RBC % Absolute Neutrophils Absolute Lymphocytes Absolute Monocytes Absolute Eosinophils Absolute Basophils VBG pH VBG pCO2 VBG pO2 VBG HCO3 VBG Total CO2 VBG O2 Saturation VBG Base Excess Sodium 141 Potassium 4.7 Chloride 101 Carbon Dioxide 31.8 Anion Gap 8.2 BUN 25 H Creatinine 0.8 Est GFR (CKD-EPI 2020) 83.26 Glucose 147 H Calcium 9.3 Magnesium 2.0 Total Bilirubin 0.2 AST 15 ALT 23 Alkaline Phosphatase 88 Troponin I NT-Pro-B Natriuret Pep Total Protein 8.4 H Albumin 3.4 TSH COVID-19 Source Nasopharynx SARS-CoV-2 (PCR) Negative Influenza Type A (PCR) Negative Influenza Type B (PCR) Negative RSV (PCR) Negative 06/16/22 06/16/22 06/16/22 21:44 21:44 20:42 WBC RBC Hgb Hct MCV MCH MCHC RDW Plt Count MPV Immature Gran % Neutrophils % Lymphocytes % Monocytes % Eosinophils % Basophils % Nucleated RBC % Absolute Neutrophils Absolute Lymphocytes Absolute Monocytes Absolute Eosinophils Absolute Basophils VBG pH 7.35 VBG pCO2 61 H* VBG pO2 32 VBG HCO3 34 H VBG Total CO2 31 H VBG O2 Saturation 62 VBG Base Excess 8 H Sodium Potassium Chloride Carbon Dioxide Anion Gap BUN Creatinine Est GFR (CKD-EPI 2020) Glucose Calcium Magnesium Total Bilirubin AST ALT Alkaline Phosphatase Troponin I Cancelled NT-Pro-B Natriuret Pep Total Protein Albumin TSH 2.03 COVID-19 Source SARS-CoV-2 (PCR) Influenza Type A (PCR) Influenza Type B (PCR) RSV (PCR) 06/16/22 06/16/22 19:00 19:00 WBC 8.64 RBC 4.77 Hgb 14.2 Hct 44.3 MCV 93 MCH 29.8 MCHC 32.1 RDW 14.6 Plt Count 245 MPV 9.1 Immature Gran % 1.3 Neutrophils % 59.7 Lymphocytes % 30.4 Monocytes % 6.9 Eosinophils % 1.2 Basophils % 0.5 Nucleated RBC % 0.0 Absolute Neutrophils 5.16 Absolute Lymphocytes 2.63 Absolute Monocytes 0.60 Absolute Eosinophils 0.10 Absolute Basophils 0.04 VBG pH VBG pCO2 VBG pO2 VBG HCO3 VBG Total CO2 VBG O2 Saturation VBG Base Excess Sodium 142 Potassium 4.0 Chloride 104 Carbon Dioxide 34.4 H Anion Gap 3.6 BUN 25 H Creatinine 0.8 Est GFR (CKD-EPI 2020) 83.26 Glucose 115 H Calcium 9.3 Magnesium Total Bilirubin 0.3 AST 21 ALT 29 Alkaline Phosphatase 97 Troponin I < 50 NT-Pro-B Natriuret Pep 60 Total Protein 8.8 H Albumin 3.6 TSH COVID-19 Source SARS-CoV-2 (PCR) Influenza Type A (PCR) Influenza Type B (PCR) RSV (PCR) PFSH All Active Problems Thromboembolic disorder (Chronic) COPD exacerbation (Chronic) Tobacco abuse disorder (Chronic) Acute respiratory failure with hypoxia and hypercarbia (Acute) Walking pneumonia (Acute) Hypoxia (Acute) Medical History H/O deep venous thrombosis Surgical History H/O section Social History Smoking/Tobacco Use Status: Current every day Tobacco Type: cigarettes Smoking risk assessment performed?: Yes Alcohol Intake: never Drug use: Never Substance use type: does not use Do you feel safe at home: Yes Do you feel safe in your relationship?: Yes
--- NOTE | 2022-06-17 10:22 | W.PM.DS.N ---
Date of service: 06/17/22 Time of Service: 12:46 DS: Diagnosis Discharge Diagnosis (1) Acute respiratory failure with hypoxia and hypercarbia: Status: Acute (2) Tobacco abuse disorder: Status: Chronic (3) COPD exacerbation: Status: Chronic (4) Thromboembolic disorder: Status: Chronic Discharge Plan Disposition Patient Disposition: Home Condition: Improving Discharge Details Reason For Visit: Acute Respiratory Failure,Hypoxemia Admit Date/Time: 06/16/22 22:08 Admit Provider: Andriy Armijo Attending Provider: Andriy Armijo Primary Care Provider: Ivan Rodriguez Hospital Course Hospital Course: This is a 62-year-old female patient who had most of her previous care at [facility] [place] before moving to this area about 5 years ago. She had her first visit with a PCP, Ivan Staton, on the day of this admission. She was encourged to present to the ED by said PCP after evaluating her and finding her to be hypoxic.? She was on Coumadin most her life having recurrent pulmonary emboli and thromboembolic events which would respond only to Coumadin and not Eliquis or other treatments.? She is morbidly obese and smokes tobacco.? She reported to the ED with increasing shortness of breath and cough as well as hypoxemia which had been persisting over the last several days.? She had no significant fever.? In the ED she was found to have extreme bronchospasm and hypoxemia and responded to nebulizers frequently.? When hospitalist saw the patient she was speaking comfortably but had continued expiratory wheezing and upper airway noise with prolonged expiration and hypoxemia.? She agreed to stay for continued treatment with p.o. doxycycline and IV Solu-Medrol as well as frequent nebulizer treatments.? She does not want to be on home O2.? She does wish to go back on Coumadin and will discuss this with her PCP.? She has had no formal pulmonary workup in the past; unknown if she has pure asthma, COPD or a combination. She improved with steroids and albuterol. Advair initiated the morning after admission. She was maintained on 2L supplemental O2 overnight with O2 saturations in the low to mid 90's. On RA her O2 saturation at rest was 87-89%. With ambulation, RA O2 saturation decreased to 84%. She qualified for 2-3L per NC and will d/c with this. She will continue Advair and prn albuterol MDI. She has cut back her cigarette use from 2PPD to 1/2PPD. Encourage her to continue to wean or completely stop. Follow up with PCP in 1-2 weeks. Appt to be arranged with Pulmonary Medicine; she has no formal pulmonary diagnosis but likely asthma vs COPD or combination. Also OHS and possibly ZEINAB. Home Meds and New Rx's Prescriptions: New doxycycline hyclate 100 mg Capsule 100 mg PO Q12H Qty: 10 0RF budesonide-formoterol [Symbicort] 160-4.5 mcg/actuation Hfa Aerosol Inhaler 2 puff inhalation BID Qty: 1 0RF prednisone 20 mg Tablet 40 mg PO DAILY Qty: 8 0RF Rx Instructions: First dose on 06/18/21. Continued albuterol sulfate 90 mcg/actuation HFA aerosol inhaler 2 puff inhalation Q6H PRN (Reason: shortness of breath or wheezing) Qty: 6.7 0RF Discharge Instructions Instructions: How to Stop Smoking (DC) Activity:: Activity as Tolerated Equipment/Supplies:: No Equipment Needed Diet:: Heart Healthy DS: Summary Time Spent with Patient providing and/or coordinating discharge services: Greater than 30 minutes Status at Discharge Functional status at discharge: independent ambulation Overall status at discharge: patient is progressing back to baseline Mental Status: mental status grossly normal Speech and Movement: speech clear Mood: congruent mood Affect: normal affect Exam Narrative Exam Narrative: General: Patient is sitting on edge of bed. States she has noted improvement in her ease of breathing. HEENT: Normocephalic, coarsened facial features. Sclera clear. Oropharynx with dry mucosa. Many missing teeth with discoloration and caries. Neck: Supple without JVD. Lungs: Bronchovesicular breath sounds diffusely with inspiration with no focalizing rales, markedly prolonged expiratory phase with prolonged expiratory wheezes. Decreased aeration bilaterally. Heart: Regular rate and rhythm with no murmurs gallops appreciated. Abdomen: Obese with large pannus, soft and nontender to palpation with no palpable hepatosplenomegaly. Extremities: Brawny, nonpitting edema over left more than right lower extremity with skin atrophy circumferentially more on the left than right. No ulcerations but dry atrophic scars over left leg. Erythema over left leg. Hyperpigmentation and hypopigmentation over left leg. No calf tenderness.. Psych: Flat affect initially but becomes more animated when decision made to discharge home. Psych Mental Status: mental status grossly normal Speech and Movement: speech clear Mood: congruent mood Affect: normal affect DS: Data Vitals/I&O Vitals and I&O: Vital Signs Temperature 36.4 C L 06/17/22 07:39 Temperature Source Tympanic 06/17/22 07:39 Pulse 71 06/17/22 07:39 Pulse Rhythm Regular 06/16/22 23:40 Pulse 88 06/16/22 22:40 Respiratory Rate 18 06/17/22 07:39 Respiratory Effort Labored 06/17/22 00:31 Respiratory Depth Normal 06/17/22 00:31 Respiratory Pattern Tachypnea 06/17/22 00:31 Blood Pressure 126/77 06/17/22 07:39 Blood Pressure Mean 98 06/16/22 22:32 Blood Pressure Position Sitting 06/16/22 17:18 Pulse Oximetry 94 06/17/22 09:07 Oxygen Delivery Method Nasal Cannula 06/17/22 09:07 Oxygen Flow Rate 3 06/17/22 09:07 Pain Level 0 06/17/22 02:58 Comment 06/17/22 00:00 Intake & Output 06/16/22 06/16/22 06/17/22 11:59 23:59 11:59 Intake Total 360 / 360 Output Total 100 / 100 Balance 260 / 260 Weight 141.521 kg Intake: Oral 360 / 360 Output: Urine 100 / 100 Other: Urine Color Yellow Urine Appearance Clear Clear Voiding Methods Toilet Data Completed and Pending Labs on day of discharge: Labs from last 24 hours 06/17/22 06/17/22 06/16/22 06:32 06:32 21:55 WBC 6.10 RBC 4.62 Hgb 13.5 Hct 43.2 MCV 94 MCH 29.2 MCHC 31.3 L RDW 14.6 Plt Count 241 MPV 9.2 Immature Gran % Neutrophils % Lymphocytes % Monocytes % Eosinophils % Basophils % Nucleated RBC % Absolute Neutrophils Absolute Lymphocytes Absolute Monocytes Absolute Eosinophils Absolute Basophils VBG pH VBG pCO2 VBG pO2 VBG HCO3 VBG Total CO2 VBG O2 Saturation VBG Base Excess Sodium 141 Potassium 4.7 Chloride 101 Carbon Dioxide 31.8 Anion Gap 8.2 BUN 25 H Creatinine 0.8 Est GFR (CKD-EPI 2020) 83.26 Glucose 147 H Calcium 9.3 Magnesium 2.0 Total Bilirubin 0.2 AST 15 ALT 23 Alkaline Phosphatase 88 Troponin I NT-Pro-B Natriuret Pep Total Protein 8.4 H Albumin 3.4 TSH COVID-19 Source Nasopharynx SARS-CoV-2 (PCR) Negative Influenza Type A (PCR) Negative Influenza Type B (PCR) Negative RSV (PCR) Negative 06/16/22 06/16/22 06/16/22 21:44 21:44 20:42 WBC RBC Hgb Hct MCV MCH MCHC RDW Plt Count MPV Immature Gran % Neutrophils % Lymphocytes % Monocytes % Eosinophils % Basophils % Nucleated RBC % Absolute Neutrophils Absolute Lymphocytes Absolute Monocytes Absolute Eosinophils Absolute Basophils VBG pH 7.35 VBG pCO2 61 H* VBG pO2 32 VBG HCO3 34 H VBG Total CO2 31 H VBG O2 Saturation 62 VBG Base Excess 8 H Sodium Potassium Chloride Carbon Dioxide Anion Gap BUN Creatinine Est GFR (CKD-EPI 2020) Glucose Calcium Magnesium Total Bilirubin AST ALT Alkaline Phosphatase Troponin I Cancelled NT-Pro-B Natriuret Pep Total Protein Albumin TSH 2.03 COVID-19 Source SARS-CoV-2 (PCR) Influenza Type A (PCR) Influenza Type B (PCR) RSV (PCR) 06/16/22 06/16/22 19:00 19:00 WBC 8.64 RBC 4.77 Hgb 14.2 Hct 44.3 MCV 93 MCH 29.8 MCHC 32.1 RDW 14.6 Plt Count 245 MPV 9.1 Immature Gran % 1.3 Neutrophils % 59.7 Lymphocytes % 30.4 Monocytes % 6.9 Eosinophils % 1.2 Basophils % 0.5 Nucleated RBC % 0.0 Absolute Neutrophils 5.16 Absolute Lymphocytes 2.63 Absolute Monocytes 0.60 Absolute Eosinophils 0.10 Absolute Basophils 0.04 VBG pH VBG pCO2 VBG pO2 VBG HCO3 VBG Total CO2 VBG O2 Saturation VBG Base Excess Sodium 142 Potassium 4.0 Chloride 104 Carbon Dioxide 34.4 H Anion Gap 3.6 BUN 25 H Creatinine 0.8 Est GFR (CKD-EPI 2020) 83.26 Glucose 115 H Calcium 9.3 Magnesium Total Bilirubin 0.3 AST 21 ALT 29 Alkaline Phosphatase 97 Troponin I < 50 NT-Pro-B Natriuret Pep 60 Total Protein 8.8 H Albumin 3.6 TSH COVID-19 Source SARS-CoV-2 (PCR) Influenza Type A (PCR) Influenza Type B (PCR) RSV (PCR) PFSH All Active Problems Thromboembolic disorder (Chronic) COPD exacerbation (Chronic) Tobacco abuse disorder (Chronic) Acute respiratory failure with hypoxia and hypercarbia (Acute) Walking pneumonia (Acute) Hypoxia (Acute) Medical History H/O deep venous thrombosis Surgical History H/O section Social History Smoking/Tobacco Use Status: Current every day Tobacco Type: cigarettes Smoking risk assessment performed?: Yes Alcohol Intake: never Drug use: Never Substance use type: does not use Do you feel safe at home: Yes Do you feel safe in your relationship?: Yes Time Spent with Patient Time Spent with Patient: <45 minutes Time was spent: preparing to see the patient(eg.review tests), ordering medications,tests, procedures, referring, communicating with other health care analyst and counseling the patient
== END 2022-06-17 14:35 | disposition home or self-care (01) | DRG 202 ==
LOC: ER 23:29 → MS 23:33
PROVIDERS: Admitting Provider Family Medicine; Emergency Provider Physician Assistant; PCP Nurse Practitioner Family; Visit Provider Family Medicine
DX: J20.9 Acute bronchitis, unspecified (principal); J96.21 Acute and chronic respiratory failure with hypoxia; J96.22 Acute and chronic respiratory failure with hypercapnia; J44.0 Chronic obstructive pulmonary disease with (acute) lower respiratory infection; Z68.42 Body mass index [BMI] 45.0-49.9, adult; J44.1 Chronic obstructive pulmonary disease with (acute) exacerbation; F17.210 Nicotine dependence, cigarettes, uncomplicated; G47.30 Sleep apnea, unspecified; Z86.718 Personal history of other venous thrombosis and embolism; Z86.711 Personal history of pulmonary embolism; E66.01 Morbid (severe) obesity due to excess calories
CPT/HCPCS: 36415; 71275; 80053; 82805; 85027; 87637; 93005; 94618; 96374; 99291; J1650; 83735; 83880; 84443; 84484; 85025; 93010; 94640; 99223; 99239; J2930; J3490; J7512; J7613; J7620

== ENCOUNTER 2022-07-13 03:42 | Outpatient (CLI) | payer MEDICAID, SELFPAY ==
[2022-07-13] MEDS: Albuterol HFA 18 GM 200 PUFF INH IH (14:41)
[2022-07-13] MEDS: Inhaler, Assist Device 1 EACH MC (14:42)
--- NOTE | 2022-07-14 14:20 | W.PFT ---
Date of service: 07/13/22 Time of Service: 12:56 Pulmonary Function Test Result Requesting Provider Ivan Staton Indications: COPD Interpretation Spirometry: There is no airflow limitation. There is no significant bronchodilator response. There is a restrictive pattern to spirometry. Impression No obstructive lung disease. Restrictive pattern could be pseudo-restriction due to an elevated BMI, but cannot rule out restrictive lung disease without full PFT's with lung volumes. Clinical Correlation therefore is recommended.
== END 2022-07-13 03:43 | disposition home or self-care (01) ==
LOC: RT 03:42
PROVIDERS: PCP Nurse Practitioner Family; Visit Provider Nurse Practitioner Family
DX: J96.01 Acute respiratory failure with hypoxia (principal); J96.02 Acute respiratory failure with hypercapnia; J44.1 Chronic obstructive pulmonary disease with (acute) exacerbation; R94.2 Abnormal results of pulmonary function studies; F17.210 Nicotine dependence, cigarettes, uncomplicated
CPT/HCPCS: 94060

== ENCOUNTER 2023-01-03 22:39 | Outpatient (CLI) | payer MEDICAID, SELFPAY ==
--- NOTE | 2023-01-03 16:37 | DI.RAD_ITS ---
Exam(s) XR CHEST 2V PA LATERAL EXAM: XR CHEST 2V PA LATERAL CLINICAL HISTORY: Continues SOB, low sat on exer., gen malaise., pneumonia, J18.9. TECHNIQUE: 2D digital imaging was performed. COMPARISON: CR,XR XR PORTABLE CHEST AP from 06/12/2022 FINDINGS: 2 views: Heart size is normal. The mediastinum is not widened. Lungs are clear. No infiltrates nor pleural effusions. IMPRESSION: No acute pulmonary findings. DATA REPOSITORY: RADIATION DOSE DELIVERED:
== END 2023-01-03 22:59 ==
LOC: DI 22:40
PROVIDERS: PCP Nurse Practitioner Family; Visit Provider Nurse Practitioner Family
DX: J18.9 Pneumonia, unspecified organism (principal)
CPT/HCPCS: 71046

== ENCOUNTER 2023-06-08 10:59 | Outpatient (CLI) | payer MEDICAID, SELFPAY ==
--- NOTE | 2023-06-08 10:45 | RT.EKG_ITS ---
APPROVED REPORT Exam: Resting ECG Reason for Exam: evaluate cardiac status Patient Location: O HR:79 bpm ECG Measurements Heart Rate 79 AXIS NH 186 P 63 QRSd 99 QRS 45 QT 392 T 66 QTc 450 Conclusion Sinus rhythm...normal P axis, V-rate 50- 99 Ventricular premature complex...V complex w/ short R-R interval Probable left atrial enlargement...P >50mS, <-0.10mV V1 Anteroseptal infarct, age indeterminate...Q >35mS, T neg, V1-V2 Borderline ST elevation, inferior leads...ST >0.06mV, II III aVF Lateral leads are also involved...lat Q or ST-T abnormalities I have reviewed and interpreted ECG and agree with software generated interpretation.
== END 2023-06-08 11:00 | disposition home or self-care (01) ==
LOC: DI.CM 11:00
PROVIDERS: PCP Nurse Practitioner Family; Visit Provider Nurse Practitioner Family
DX: R00.2 Palpitations (principal); R06.00 Dyspnea, unspecified
CPT/HCPCS: 93010

== ENCOUNTER → 2023-06-09 00:38 | Outpatient (CLI) | payer MEDICAID, SELFPAY ==
--- NOTE | 2023-06-09 07:00 | DI.CT_ITS ---
Exam(s) CT CHEST PE CTA EXAM: CT CHEST PE CTA CLINICAL HISTORY: dyspnea,thromboembolic disorder,I74.9,R06.00. TECHNIQUE: Imaging Protocol: Axial CT angiography was performed with multi-slice acquisition and mu lti-planar reconstructions as well as axial, coronal and sagittal MIP reconstructions. CONTRAST MATERIAL: Intravenous: Omnipaque 350 Contrast volume:100 ml COMPARISON: CT CT CHEST PE CTA from 06/16/2022 FINDINGS: Pulmonary Arteries: No evidence of filling defect to suggest pulmonary emboli. Tracheobronchial tree: Patent where visualized. Mediastinum and Bebe: No dominant adenopathy or fluid collection. Pulmonary parenchyma: No consolidation or dominant measurable mass. Minimal scarring at right lung base. Pleura: No effusion or pneumothorax. Heart: The heart is not dilated. No coronary artery calcifications are seen. Aorta: Thoracic aorta non-dilated. No aneurysm. No dissection. Minimal atherosclerotic changes. Upper abdomen: Unremarkable. Bones: Degenerative changes. No compression fractures. Tubes, Catheters, and Lines: None Soft tissues: Unremarkable. IMPRESSION: No evidence of pulmonary embolism. No other acute abnormality. RADIATION DOSE DELIVERED: Total DLP DATA REPOSITORY: All CT scans at this facility are submitted to the National Radiology Data Registry (NRDR) Dose Index Registry (DIR) with the [employer] [place] [employer] [employer] (A[employer]). RADIATION OPTIMIZATION: All CT scans at this facility use at least one of these dose optimization te chniques: automated exposure control; mA and/or kV adjustment per patient size (includes targeted exa ms where dose is matched to clinical indication); or iterative reconstruction.
[2023-06-09 09:17] LABS: CREATININE 0.8 mg/dL (0.55-1.02); Estimated GFR 82.74 (mL/min/1.73m2)
[2023-06-09] MEDS: Normal Saline - Diluent 50 ML VIAL IJ (09:20)
[2023-06-09] MEDS: Omnipaque 350 MG/ML 100 ML BTL IJ (09:21)
== END ==
PROVIDERS: PCP Nurse Practitioner Family; Visit Provider Nurse Practitioner Family
DX: I74.9 Embolism and thrombosis of unspecified artery (principal); R06.00 Dyspnea, unspecified
CPT/HCPCS: 71275; 82565; J3490

== ENCOUNTER 2023-06-23 09:26 | Outpatient (RCR) | payer MEDICAID, SELFPAY ==
--- NOTE | 2023-06-23 07:00 | HOLTER_ITS ---
APPROVED REPORT Exam Type: HOLTER MONITOR APPLICATION Reason for Test: PALPITATIONS Patient Location: O Conclusion 1. The underlying rhythm is sinus, rate range 71-116( average 86 ) bpm. 2. Several PVCs,one triplet, no VTACH. 3. Few PACs, no SVT 4. 4 SECOND PAUCE 5.No atrial fibrillation. Impression: Probable Sick Sinus Syndrome.
== END 2023-07-13 23:59 | disposition home or self-care (01) ==
LOC: CARDOPNVT 09:26
PROVIDERS: PCP Nurse Practitioner Family; Visit Provider Internal Medicine Cardiovascular Disease
DX: R00.2 Palpitations (principal)
CPT/HCPCS: 93225; 93226

== ENCOUNTER 2023-07-18 08:19 | Outpatient (CLI) | payer MEDICAID, SELFPAY ==
--- NOTE | 2023-07-18 08:15 | RT.EKG_ITS ---
APPROVED REPORT Exam: Resting ECG Reason for Exam: palpitations Patient Location: O HR:79 bpm ECG Measurements Heart Rate 79 AXIS ND 193 P 52 QRSd 99 QRS 41 QT 373 T 56 QTc 428 Conclusion Sinus rhythm...normal P axis, V-rate 50- 99 Low voltage, precordial leads...precordial leads <1.0mV Minimal ST elevation, inferior leads...ST >0.06mV, II III aVF I have reviewed and interpreted ECG and agree with software generated interpretation.
== END 2023-07-18 08:20 | disposition home or self-care (01) ==
LOC: DI.CARD 08:20
PROVIDERS: PCP Nurse Practitioner Family; Visit Provider Internal Medicine Interventional Cardiology
DX: R00.2 Palpitations (principal); R06.00 Dyspnea, unspecified
CPT/HCPCS: 93010

== ENCOUNTER → 2023-07-28 03:10 | Outpatient (CLI) | payer MEDICAID, SELFPAY ==
--- NOTE | 2023-07-28 06:45 | DI.NM_ITS ---
APPROVED REPORT Exam: Exercise Treadmill Patient Location: Out-Patient Room/Bed: Stress Nurse: Mary Ann Aquino RN Ordering Provider:TUAN SAMSON, Contact Number: BMI: 54.57 Baseline Rhythm: Sinus Rhythm Indications: CHERY Medical History Medical History: Sinus pause, palpitations, dyspnea, thromboembolic disorder, fatigue, sciatica Cardiac Medications: Albuterol sulfate, symbicort, fluticasone, warfarin Allergies: Sulfa Cardiac Risk Factors: Family hx, smoker, obesity, COPD Previous Cardiac Procedures: None Pretest Chest Pain Characteristics: None Exercise History: Sedentary Physical Disabilities: None Lung Sounds: Diminished throughout Heart Sounds: Regular Stress Test Details Test: Exercise stress testing was performed using a Antwon protocol. Nuclear Acquisition: Rest Tc-99m/Stress Tc-99m 1 day Rest Isotope: Tc-99m Sestamibi. Dose: 14.9 Date: 07/28/2023 Injection Time: 0850 Stress Isotope: Tc-99m Sestamibi. Dose: 45.7 Date: 07/28/2023 Injection Time: 1010 HR Resting HR Supine: 66 bpm Max Heart Rate (APMHR): 157.462118 bpm Resting HR Standin bpm Target HR (85% APMHR): 133.429616 bpm Max HR Achieved: 135 bpm % of APMHR: 85.99 Recovery HR: 88 bpm HR response to stress: Normal HR response to stress BP Resting BP Supine: 140/72 mmHg Resting BP Standin/78 mmHg Max BP: 204/80 mmHg Recovery BP: 142/84 mmHg BP response to stress: Abnormal hypertensive response to stress. ECG Resting ECG: Sinus Rhythm Ectopy: None Stress ECG: Sinus Tachycardia ST Change: No significant ST segment changes noted Arrhythmia: Rare PAC's Recovery ECG: Sinus Rhythm Recovery ST Change: No significant ST segment changes noted Recovery Arrhythmia: Rare PVC, rare PAC's Clinical Reason for Termination: Target HR Achieved, Fatigue, Dyspnea Stress Symptoms: General Fatigue, Leg Fatigue, Dyspnea Exercise duration: 06 min01 sec Highest Stage Reached: Stage 1: 1.7 mph at 10% grade. Exercise capacity: 4.64 METs Angina Score: None Corcoran Treadmill Score: 5.6 Rate Pressure Product: [id number] Stress ECG Conclusion 1. Resting electrocardiogram was normal 2. Patient exercised on the Antwon protocol and completed a workload of 4.64 METS 3. Peak heart rate achieved was 86% of predicted for age 4. The electrocardiographic portion of the test was negative for myocardial ischemia 5. There were no significant dysrhythmias 6. See MPI report [place]an Treadmill Score is 5.6 which is Low risk. Stress Test Summary STAGE Time (mins) Speed (mph) Grade (%) HR BP SpO2 SYMPTOMS METS Supine 66 140/72 89 Standing 76 148/78 1 3 1.7 10 75 4.5 2 6 2.5 12 133 Mod-severe SOB, fatigue 7 1 min recovery 115 204/80 91 Mod-severe SOB, general fatigue, leg fatigue. 3 min recovery 88 164/88 6 min recovery 88 142/84 All symptoms resolved. Treadmill changed to manual mode due to patient's inability to increase incline and reach target HR. Patient c/o mod-severe SOB and fatigue. MPI Conclusion Myocardial perfusion is normal. There is no ischemia or evidence of prior infarction Ejection fraction is 56% with normal wall motion Radiologist Interpretation Radiologist agrees with Addressograph Operator's Interpretation. Radiologist Interpretation by: Jesica Schmidt MD Interpretation Date/Time: 07/28/2023 15:44:21
== END ==
PROVIDERS: PCP Nurse Practitioner Family; Visit Provider Internal Medicine Interventional Cardiology
DX: R94.31 Abnormal electrocardiogram [ECG] [EKG] (principal); R06.09 Other forms of dyspnea
CPT/HCPCS: 78452; 93017

== ENCOUNTER → 2023-08-11 03:47 | Outpatient (CLI) | payer MEDICAID, SELFPAY ==
--- NOTE | 2023-08-11 08:30 | DI.US_ITS ---
APPROVED REPORT EXAM: Comprehensive 2D, Doppler, and color-flow Echocardiogram Patient Location: Out-Patient Pay Station Attendant: Maria Del Carmen Benítez RDCS (AE) Indications: Exertional dyspnea, CHF, Abnormal EKG, Palpitations Other Information Study Quality: Fair. Technically limited study due to body habitus. Conclusion Normal left ventricular wall thickness and chamber size. Ejection fraction is 57%. Wall motion is n ormal Normal right ventricular size and function Both atria are normal in size There is no structural or hemodynamically significant valvular disease Wall motion Left Ventricle The left ventricle is normal size. The overall left ventricular systolic function appears normal. Th ere is normal left ventricular wall thickness. Regional wall motion is not well visualized but grossl y normal. There is no ventricular septal defect visualized. LVEF is 57%. Right Ventricle Right ventricle is grossly normal in size. Right ventricular systolic function is grossly normal. Atria The left atrium size is normal. The right atrium size is normal. The interatrial septum is intact wit h no evidence for an atrial septal defect. Aortic Valve The aortic valve is normal in structure. There is no aortic valvular stenosis. No aortic regurgitati on is present. Mitral Valve The mitral valve is normal in structure. No evidence of mitral valve stenosis. Trace mitral regurgit ation. Tricuspid Valve The tricuspid valve is normal in structure. There is no tricuspid valve stenosis. Trace to mild tricu spid regurgitation. Unable to assess PA pressure. Pulmonic Valve Pulmonic valve is not well visualized. There is no pulmonic valvular stenosis. There is no pulmonic v alvular regurgitation. Great Vessels The aortic root is normal in size. The ascending aorta is normal in size. Aortic arch is normal in ca liber. IVC is normal in size and collapses >50% with inspiration. Pericardium There is no pericardial effusion. 2D Dimensions IVSD d PLAX 1.05 cm F: 0.6-1.0 Ao Root d 3.28 cm F: 2.7 - 3.3 LVPW d PLAX 1.05 cm F: 0.6 - 1.0 Ao Asc Diam d 3.23 cm F: 2.3 - 3.1 LVID d PLAX 4.70 cm F: 3.8 - 5.2 LVDs 3.35 cm F: 2.2 - 3.5 LV EF Teichholz 55.4 % FS 28.78 % LV EDV (Teich) 102.6 mL LV ESV (Teich) 45.8 mL M-Mode TAPSE 2.54 cm (M/F) >1.7 Auto EF LV EDV A4C 136.8 mL LV EDV A2C 104.1 mL LV EDV BP 123.4 mL LV ESV A4C 61.1 mL LV ESV A2C 45.6 mL LV ESV BP 52.9 mL LVEF(%) A4C 55.4 % LVEF(%) A2C 56.2 % LVEF(%) BP 57.1 % LV SV A4C 75.7 ml LV SV A2C 58.5 ml LV SV BP 70.5 ml LV CO A4C 5.0 L/min LV CO A2C 3.8 L/min LV CO BP 4.4 L/min HR A4C 66.18 BPM HR A2C 65.58 BPM LV EDV Index (BP) LA Volume LA Length A4C 5.0 cm LA Length A2C 4.9 cm LA Area A4C s 17.97 cm2 LA Area A2C s 18.17 cm2 LA Vol A4C A-L 55.03 mL LA Vol A2C A-L 56.71 mL LA Vol Biplane A-L 56.1 mL LA Vol/BSA A4C A-L LA Vol/BSA A2C A-L LA Vol/BSA BP A-L 23.0 mL/m2 LA Vol A4C MOD 49.5 mL LA Vol A2C MOD 52.1 mL LA Vol BP MOD 50.8 mL RA Volume RA Area A4C 11.0 cm2 RA ESV A4C (A-L) 28.7mL RA Vol/BSA A4C A-L RA Length A4C 3.6 cm RA ESV A4C (MOD) 27.3mL LV Diastology MV E' medial 0.054 (>0.07 m/s) MV E Vmax 0.91 (0.4-1.3 m/s) MV E/E' MED 17.00 (<14) MV A Vmax 0.90 (0.4-1.3 m/s) MV E' lateral 0.087 (>0.1 m/s) E/A Ratio 1.0 MV E/E' LAT 10.40 (<14) MV E' Average 0.070 m/s MV E/E'(average) 12.90 Aortic Valve AoV Vmax 1.52 m/s LVOT Vmax 1.23 m/s AoV Peak Grad 9.2 mmHg LVOT Peak Grad 6.0 mmHg AoV Area (Vmax) 2.52 cm2 LVOT VTI 0.257 m AoV VTI 0.336 m LVOT Mean Grad 3.6 mmHg AoV Mean Hadley. 1.02 m/s LVOT SV 80.34 mL AoV Mean Grad 4.8 mmHg LVOT Diam s 1.95 cm AoV Area (VTI) 2.39 cm2 Velocity Ratio 0.81 Mitral Valve MV DT 300 (160-240 msec) MV Vmax TIPS 0.93 m/s MV Mean Grad 1.8 (<2mmHg) MV VTI 0.340 m Pulmonary Valve PV Vmax 0.78 (0.5-1.5 m/s) RVOT Vmax 0.75 m/s PV Peak Grad 2.4 mmHg RVOT Peak Gr. 2.2 mmHg PV Mean Hadley 0.51 m/s RVOT VTI 0.159 m PV Mean Grad 1.3 mmHg RVOT Mean Gr. 1.3 mmHg Tricuspid Valve RA Pressure 3.00 mmHg TV S' 0.10 m/s
== END ==
PROVIDERS: PCP Nurse Practitioner Family; Visit Provider Internal Medicine Interventional Cardiology
DX: I50.9 Heart failure, unspecified (principal)
CPT/HCPCS: 93306

== ENCOUNTER 2023-10-10 11:03 | Outpatient (CLI) | payer MEDICAID, SELFPAY ==
[2023-10-10 13:01] LABS: ALT 21 U/L (14-59); AST 16 U/L (15-37); Albumin 3.2 g/dL (3.4-5.0); Alkaline Phosphatase 93 U/L (46-116); Anion Gap 3.4 mmol/L (3-11); BUN 20 mg/dL (7-18); Bilirubin, Total 0.3 mg/dL (0.2-1.0); CO2 33.6 mmol/L (21.0-32.0); CREATININE 0.7 mg/dL (0.55-1.02); Calcium 8.7 mg/dL (8.5-10.1); Calculated LDL 120 mg/dL (<100); Chloride 105 mmol/L (98-107); Cholesterol 215 mg/dL (<200); Estimated GFR 97.12 (mL/min/1.73m2); Glucose 125 mg/dL (74-106); HDL Cholesterol 57 mg/dL (40-60); Potassium 4.1 mmol/L (3.5-5.1); Sodium 142 mmol/L (136-145); Total Protein 7.8 g/dL (6.4-8.2); Triglyceride 192 mg/dL (<150)
[2023-10-10 17:59] LABS: Hepatitis C Ab w Rflx HCV PCR Negative (Negative)
[2023-10-10 18:31] LABS: HIV-1/2 Ag & Ab Screen Negative (Negative)
== END 2023-10-10 11:04 | disposition home or self-care (01) ==
LOC: LOS 11:04
PROVIDERS: PCP Nurse Practitioner Family; Referring Provider Nurse Practitioner Family; Visit Provider Nurse Practitioner Family
DX: Z11.59 Encounter for screening for other viral diseases (principal); Z13.220 Encounter for screening for lipoid disorders; Z11.4 Encounter for screening for human immunodeficiency virus [HIV]
CPT/HCPCS: 36415; 80053; 80061; 86803; 87389

== ENCOUNTER 2024-03-20 03:24 | Outpatient (CLI) | payer MEDICAID, SELFPAY ==
[2024-03-20] MEDS: Inhaler, Assist Device 1 EACH MC (09:17)
[2024-03-20] MEDS: Levalbuterol HFA 15 GM INH 4 PUFF IH (09:17)
--- NOTE | 2024-03-22 20:35 | W.PFT ---
Date of service: 03/20/24 Time of Service: 07:58 Pulmonary Function Test Result Indications: Dyspnea Interpretation Spirometry: Although there is a normal FEV1/FVC ratio, mild obstruction is seen in the flow volume loop. There is a reduced FVC. Lung Volumes: There is air trapping. Markedly reduced ERV. Diffusion Capacity: Normal diffusion Airway Pressure: Increased airways resistance Impression Likely mild airflow obstruction with air trapping and a normal diffusion. This may be consistent with asthma, COPD (chronic bronchitis) or asthma-COPD overlap syndrome. There is also evidence of obesity related lung disease. Clinical Correlation therefore is recommended.
== END 2024-03-20 03:25 | disposition home or self-care (01) ==
LOC: RT 03:24
PROVIDERS: PCP Nurse Practitioner Family; Visit Provider Student in an Organized Health Care Education/Training Program
DX: R05.1 Acute cough (principal); R06.00 Dyspnea, unspecified
CPT/HCPCS: 94060; 94726; 94729

== ENCOUNTER 2024-04-10 15:09 | Emergency (ER) | payer MEDICAID, SELFPAY ==
[2024-04-10] VITALS (21 sets, daily range): BP systolic 110–125; BP diastolic 61–88; PULSE 83–162; RESP 18–40; TEMP 36.2–36.4; O2SAT 84–98
--- NOTE | 2024-04-10 15:00 | RT.EKG_ITS ---
APPROVED REPORT Exam: Resting ECG Reason for Exam: Low O2 Patient Location: E HR:95 bpm ECG Measurements Heart Rate 95 AXIS AL [id number] P [id number] QRSd 81 QRS 0 QT 335 T 40 QTc 422 Conclusion Atrial fibrillation, rate 95 No interval abnormalities No STEMI Movement artifact
--- OUTSIDE RECORDS SUMMARY | 2024-04-10 15:26 | XMS_ITS | Encounter Summary ---
Author Organization [facility] Address [facility] [place] [address] Care Team Providers Care Social Media Job Titles Name Role Phone None Primary Care Provider Unavailabl e Reason for Visit * Reason Comments Follow-up Encounter Details Date Type Department Care Team (Late st Contact Info) Description 10/27/2020 11:40 AM EDT Office Visit Dermatology at [facility] [address] [place] [address] Fawn Powell MD [facility] [address] [place] [address] Venous stasis ulcer of leg without varicose veins; Tinea pedis, unspecified laterality Social History Tobacco Use Types Packs/Day Years Used Date Smoking Tobacco: Every Day Smokeless Tobacco: Never Sex and Gender Information Value Date Recorded Sex Assigned at Not on file Gender Identity Not on file Sexual Orientation Not on file documented as of this encounter Progress Notes * Fawn Powell - 10/27/2020 11:40 AM EDT Images from the original note were not included. DEPARTMENT OF DERMATOLOGY Medical Dermatology Clinic Provider: Fawn Powell MD Patient's preferred name Alesia Patient's preferred pronouns She/Her/Hers Preferred contact method for results []?myDH []?Letter [x]?Phone: Detailed phone message OK? Yes [phone] ? PAST MEDICAL HISTORY Y/N Date, location, treatment Melanoma no ?? Dysplastic nevi no ?? SCC no ?? BCC no ?? AKs no ?? Blistering sunburns or tanning bed use no ?? Other relevant past medical history (i.e. eczema, psoriasis, birthmarks, immunosuppression) ?? Venous stasis dermatitis History of unknown clotting disorder and multiple DVT FAMILY HISTORY Y/N Melanoma no ?? NMSC no ?? Other relevant family history no ?? SOCIAL HISTORY Occupation: Works at [employer] ?? History of Present Illness: Alesia Meehan is a 60 y.o., established patient, last seen on 09/30/2020. Here today for a follow up on an ulcer on the left leg. She has been wearing the compression socks daily and elevating her legs when able. Patient has been using the augmented betamethasone twice daily for 3 weeks and then takes a break for one week. She states this has been helpful. Patient also uses the dilute vinegar daily. She finished here course of keflex Medications: Reviewed in eD-H Allergies: Reviewed in eD-H Skin Examination: Focused skin examination of the left lower leg was normal with the exception of the findings below Assessment/Plan # Venous ulcer with stasis change, improved- ulceration is notably more shallow and smaller than last visit, no surrounding erythema. Patient continues to have edema of this leg with brawny discoloration - Continue Rx: Augmented Betamethasone Dipropionate 0.05% Ointment: Apply twice daily to affected areas of the left lower leg for 21 days, take one week off, and repeat as needed - Discussed risks of prolonged topical corticosteroid use including atrophy, striae, hypopigmentation, tachyphylaxis. -??Continue wearing 20-30mmHg compression stocking on legs.?? - Continue elevating legs above level of the heart for 15 minutes 3xs a day if possible - Continue 1:6 dilute vinegar spray as needed throughout the day - Recommend ultrasound to evaluate for DVT. Discussed risks of DVT including pulmonary embolism. Patient declines at this time. # Tinea Pedis - erythema and scale on the left plantar foot - Start Rx: Ketoconazole 2% cream - apply topically to affected areas on the feet twice daily for 3weeks. Other items to document in the assessment/plan if relevant ??? N/A RTC: 8 week f/u ulcer Scribe attestation: CAROL Stallworth has performed the documentation for this encounter in the presence of and acting as a scribe for Fawn Powell MD I performed the above scribed service and agree with the accuracy of the documentation in this encounter. Reviewed and signed by: Fawn Powell MD Dermatology [facility] Patient seen and evaluated with staff rod piler: Kristian Villar MD Department of Dermatology [facility] * Kristian Villar MD - 10/27/2020 11:40 AM EDT I directly supervised the Dermatology resident during this office visit. The resident presented thehistory and physical exam to me. I then saw and examined this patient with the resident. We reviewed the history and pertinent details and I confirmed the physical findings. I agree with the details of the history and physical exam as documented in the resident's note. KRISTIAN VILLAR MD Staff Physician documented in this encounter Plan of Treatment Not on file documented as of this encounter Visit Diagnoses Diagnosis Venous stasis ulcer of leg without varicose veins Unspecified venous (peripheral) insufficiency Tinea pedis, unspecified laterality documented in this encounter Care Teams Social Media Job Titles Relationship Specialty Start Date End Date None None PCP - General 01/14/20 documented as of this encounter
--- OUTSIDE RECORDS SUMMARY | 2024-04-10 15:26 | XMS_ITS | Encounter Summary ---
Author Organization [facility] Address [facility] [place] [address] Care Team Providers Care Laminating Machine Feeder Name Role Phone None Primary Care Provider Unavailabl e Encounter Details Date Type Department Care Team (Latest Contact Info) Description 03/05/2020 4:30 PM EDT TH Visit (TeleHealth) Dermatology at [facility] [address] [place] [address] Carlos Carrizales MD [facility] [place] [address] Seborrheic dermatitis Social History Tobacco Use Types Packs/Day Years Used Date Smoking Tobacco: Every Day Smokeless Tobacco: Never Sex and Gender Information Value Date Recorded Sex Assigned at Not on file Gender Identity Not on file Sexual Orientation Not on file documented as of this encounter Progress Notes * Carlos Aquino MD - 03/05/2020 4:30 PM EDT Images from the original note were not included. DERMATOLOGY - ESTABLISHED PATIENT TELEPHONE APPT FOLLOW-UP Date of service: 03/05/2020 Alesia Meehan : 1960, 59 y.o. Chief Complaint: Follow Up Leg HPI: Alesia Meehan is a 59 y.o. female last seen by me on 01/21/2020. Ms. Meehan returns today for a follow up. Her leg continues to improve, she is having fewer and fewer days where it is painful. She is washing the leg in the shower, applying dilute vinegar solution 1:6, and then lathering the leg in triamcinolone BID x 3 weeks, 1 week off, repeating. She just started using compression stockings yesterday and was able to pull them up over the leg. Her hands are also improving with current treatment regimen. She has not yet started treatment for seborrheic dermatitis on her face, plans to waste picker salicylicacid face wash soon. We discussed topical antifungals, will send Rx: for ketoconazole. Discussed that if ketoconazole is too expensive, OTC clotrimazole may provide some improvement. She has OTC clotrimazole at home. Relevant Skin History: - Okay to leave detailed message with results???yes - Skin cancer (including type):??no - History of a clotting disorder, she had a DVT before and is supposed to be on warfarin daily (sheis not currently taking this, however). ??Her symptoms today do not feel like previous DVTs. ? Family History: Melanoma:??no ?? Relevant Social History: - 4 children, - Current smoker - Works at [employer] ?? Medications: Current Outpatient Medications Medication Sig Dispense Refill ??? mupirocin (BACTROBAN) 2 % Ointment Apply thin layer to the entire left lower leg twice a day for 7 days. 30 g 0 ??? ciprofloxacin (Cipro) 500 mg Tablet Take 1 tablet by mouth 2 times daily. 28 tablet 0 ??? triamcinolone (KENALOG) 0.1 % Cream Apply to the affected area on the leg with wet wraps three times daily for 1 week. Use a liberal amount of this cream. 454 g 1 ??? augmented betamethasone dipropionate (DIPROLENE-AF) 0.05 % Ointment Apply to affected areas on the hands twice a day (after vinegar solution is applied) for 14 days. Take 1 week off, repeat if needed. 45 g 1 ??? Cadexomer Iodine (IODOSORB) 0.9 % gel Apply topically. To ulcer on right lower leg once daily (Patient not taking: Reported on 01/14/2020) 40 g 0 ??? CIS Free Text Med - Flovent 1 Puff(s), Inh, Twice daily (Patient not taking: No sig reported) ??? CIS Free Text Med - Albuterol 2 Puff(s), Inh, Four times daily PRN (Patient not taking: No sig reported) ??? simvastatin (ZOCOR) 40 mg tablet 40 MG = 1 Tablet(s), PO, Once daily (Patient not taking: No sig reported) ??? warfarin (COUMADIN) 5 mg tablet Variable by Day, PO (Patient not taking: No sig reported) ??? desoximetasone (TOPICORT) 0.25 % cream 1 Appl(s), Top, Twice daily (Patient not taking: No sig reported) ??? hydroCODone-acetaminophen (VICODIN) 5-500 mg per tablet 1 Tablet(s), PO, QHS (Patient not taking: No sig reported) No current facility-administered medications for this visit. Allergies: Allergies Allergen Reactions ??? Clindamycin Hcl CIS - GI upset, Diarrhea ??? Sulfa (Sulfonamide Antibiotics) CIS - Hives Review of Systems: - General: Feels well - Skin: No other skin concerns. Examination: Telephone visit only. No in person exam done. Previous notes outline last clinical exam findings. Patient reports her leg and hands continue to improve. Her face has remained unchanged, but she hasnot yet started treatment. Diagnosis/Skin findings/Assessment/Plan: #. Venous Stasis Dermatitis, suspect Lipodermatosclerosis. - Continue Rx: Triamcinolone 0.1% cream: Apply twice daily to the affected areas on the lower extremities for 3 weeks, take one week off, and repeat as needed - Advised patient to apply CeraVe twice daily on the week off of triamcinolone application - Recommend elevating legs above the level of her heart when she can - Instructed patient to wearing compression stockings. Start with 15-20mmHg strength. If tolerable transition to 20-30mmHg. Change compression stockings every 3-6 months. - Discussed unna boots application in the past, patient declined. Patient underwent 2 weeks of BID wet wraps early in course. Given history of superimposed infection: - Finished 14 day course of ciprofloxacin (01/14/20-01/28/20) and 7 days BID of mupirocin 2% ointment. - Wound Culture from 01/14/20: Proteus mirabilis, few Beta-hemolytic strep. - Utilize 1:6 vinegar solution to decrease microbial load on the leg. Can use apple cider vinegar. Apply daily after bathing. #. Irritant??Contact??Dermatitis - Recommend moisturizer daily after any time hands get wet - Continue Rx: Augmented Betamethasone 0.05% Ointment: Apply twice daily to the affected areas on the wrist for 2 weeks, take one week off, and repeat as needed. - Apply moisturizing cream??(recommended CeraVe, Aveeno, or Vanicream)??on off week when not using augmented betamethasone ointment.? - Advised patient to keep a log of when the rash flares to trace back origin of rash #. Seborrheic Dermatitis - Discussed the pathogenesis of this condition which is thought to involve an inflammatory responseto Malasezzia furfur yeast - Start Rx: Ketoconazole 2% Cream: Apply once daily to affected areas on the face for 21 days and then as needed subsequently. If too expensive, can try clotrimazole 1% cream. Recommended she apply at night after cleansing with a mary acid face wash. - Recommend salicylic acid face wash to use twice daily (OTC Neutrogena, Vichy). RTC: 3 months, in person exam. Reviewed and signed by: Carlos Aquino MD Resident in Dermatology [facility] Patient indirectly staffed with staff body mechanic: Juan Carlos Chowdhury III, MD Department of Dermatology [facility] TIME SPENT ON PHONE: 11 MINUTES. * Juan Carlos Chowdhury III, MD - 03/05/2020 4:30 PM EDT I was the supervising physician working with dermatology resident Dr. Aquino in the dermatology clinic during this telemedicine patient visit. The level of Resident supervision for this patient visit was indirect supervision with direct supervision immediately available. (definition: [facility] GME Policy Statement on Graduate Medical Education, Supervision of Graduate Medical Trainees) I was immediately available to Dr. Aquino for questions and discussion regarding this visit. I have reviewed the encounter note details and level of service. JUAN CARLOS CHOWDHURY III, MD Staff Physician documented in this encounter Plan of Treatment Not on file documented as of this encounter Visit Diagnoses Diagnosis Seborrheic dermatitis Seborrheic dermatitis, unspecified documented in this encounter Care Teams Laminating Machine Feeder Relationship Specialty Start Date End Date None None PCP - General 01/14/20 documented as of this encounter
--- OUTSIDE RECORDS SUMMARY | 2024-04-10 15:26 | XMS_ITS | Encounter Summary ---
Author Organization [facility] Address [facility] [place] [address] Care Team Providers Care Soil Checker Name Role Phone None Primary Care Provider Unavailabl e Reason for Visit * Reason Comments Medication Refill Encounter Details Date Type Department Care Team (Late st Contact Info) Description 12/16/2020 Refill Dermatology at [facility] [address] [place] [address] Fawn Powell MD [facility] [address] [address] Social History Tobacco Use Types Packs/Day Years Used Date Smoking Tobacco: Every Day Smokeless Tobacco: Never Sex and Gender Information Value Date Recorded Sex Assigned at Not on file Gender Identity Not on file Sexual Orientation Not on file documented as of this encounter Plan of Treatment Not on file documented as of this encounter Visit Diagnoses Not on filedocumented in this encounter Care Teams Soil Checker Relationship Specialty Start Date End Date None None PCP - General 01/14/20 documented as of this encounter
--- OUTSIDE RECORDS SUMMARY | 2024-04-10 15:26 | XMS_ITS | Encounter Summary ---
Author Organization [facility] Address [facility] [place] [address] Care Team Providers Care Subsurface Augmentee Operator Name Role Phone None Primary Care Provider Unavailabl e Encounter Details Date Type Department Care Team (Late st Contact Info) Description 10/13/2020 Telephone Dermatology at [facility] [address] [place] [address] Fawn Powell MD [facility] [address] [place] [address] Social History Tobacco Use Types Packs/Day Years Used Date Smoking Tobacco: Every Day Smokeless Tobacco: Never Sex and Gender Information Value Date Recorded Sex Assigned at Not on file Gender Identity Not on file Sexual Orientation Not on file documented as of this encounter Miscellaneous Notes * Telephone Encounter - Idania Senior - 10/13/2020 10:29 AM EDT Alesia Meehan called to discuss treatment of her infection? Please reach out the the patient at [phone]. documented in this encounter Plan of Treatment Not on file documented as of this encounter Visit Diagnoses Not on filedocumented in this encounter Care Teams Subsurface Augmentee Operator Relationship Specialty Start Date End Date None None PCP - General 01/14/20 documented as of this encounter
--- OUTSIDE RECORDS SUMMARY | 2024-04-10 15:26 | XMS_ITS | Encounter Summary ---
Author Organization [facility] Address [facility] [place] [address] Care Team Providers Care Document Improvement Specialist Name Role Phone None Primary Care Provider Unavailabl e Reason for Visit * Reason Comments Follow-up Encounter Details Date Type Department Care Team (Late st Contact Info) Description 12/22/2020 11:40 AM EDT Office Visit Dermatology at [facility] [address] [place] [address] Fawn Powell MD [facility] [place] [address] Venous stasis ulcer of leg without varicose veins; Eczema, unspecified type; Impetigo Social History Tobacco Use Types Packs/Day Years Used Date Smoking Tobacco: Every Day Smokeless Tobacco: Never Sex and Gender Information Value Date Recorded Sex Assigned at Not on file Gender Identity Not on file Sexual Orientation Not on file documented as of this encounter Progress Notes * Fawn Powell - 12/22/2020 11:40 AM EDT Images from the original note were not included. DEPARTMENT OF DERMATOLOGY Medical Dermatology Clinic Provider: Fawn Powell MD Patient's preferred name Alesia Preferred contact method for results []myDH []Letter [x]Phone Detailed phone message OK? Yes Are there any other people with whom we may discuss your care? PAST MEDICAL HISTORY If no, type N. If yes, type date, location, treatment Melanoma N Dysplastic nevi N SCC N BCC N AKs N Other relevant past medical history (i.e. eczema, psoriasis, birthmarks, immunosuppression) Venous stasis dermatitis History of unknown clotting disorder and multiple DVT Denies history of diabetes or hypertension FAMILY HISTORY If yes, details Melanoma N NMSC N Other relevant family history N SOCIAL HISTORY Occupation: Works at [employer] History of Present Illness: Alesia Meehan is a 60 y.o. year old. Patient returns to clinic today for an ulcer follow up. - She notes that the ulcer appears to be improving, but there is increased pain recently on the bilateral ankles. She has tried using augmented betamethasone to the affected areas with minimal improvement. She is currently using CeraVe moisturizer and Dial soap. - As for the rash on the feet, she attempted to use ketoconazole with minimal improvement. She recently started using the augmented betamethasone to the areas due to minimal improvement with ketoconazole cream treatment. - Patient also notes of a very pruritic rash on the arms and chest that she has noticed in the pastfew weeks. She denies involvement on the abdomen or back. She attempted to apply augmented betamethasone to the area with minimal improvement. She also attempted to use an OTC psoriasis cream and Calamine lotion with some improvement. She denies a history of eczema as a child. Denies any changes inmedications or personal care products prior to onset. She avoids the sun. Last visit at [facility] Derm: 10/27/2020 Last visit with this provider: 10/27/2020 Medications: Reviewed in eD-H Allergies: Reviewed in eD-H Skin Examination: Focused skin examination of the back,chest, upper extremities, lower legs, and feet was normal withthe exception of the findings below Assessment/Plan #. Eczematous Dermatitis - On the bilateral AC fossae and left foot there are pink scaly plaques with some erosions. DDx: Allergic Contact Dermatitis with Impetiginization - CASSANDRA testing of the skin scraping was negative for fungal elements. - Start Rx: clobetasol 0.05% ointment: Apply twice daily to affected areas on the trunk and extremities for 21 days, then take one week off, and repeat as needed - Recommend OTC: chlorhexidine (Hibiclens) wash: Wash affected areas with 1-2 times daily - Start Rx: hydrocortisone 2.5% ointment: Apply twice daily to the affected areas on the face and neck for 7 days, then take one week off, and repeat as needed. - Start Rx: doxycycline 100 mg: Take one tablet by mouth twice daily for 10 days - Counseled: risks of doxycycline including but not limited to nausea, photosensitivity as well as bacteria resistance. Recommend taking with a full stomach after a meal, with a glass of water and donot lay down for 30min after taking, avoid calcium, magnesium or multivitamin supplements while taking the medication - Start Rx: prednisone 20 mg Taper- 60 mg x 5 days,40 mg x 5 days, and 20 mg x 5 days - Reviewed side effects, including but not limited to GI upset, mood change, irritability, difficulty sleeping, increases in blood pressure, increase in blood sugar, thinning of skin and bones, osteonecrosis of the hip. - Recommend AmLactin lotion to the areas during the day and Vaseline application at night - Recommend Dove for sensitive skin bar soap. #. Venous Ulcer with Stasis Changes, improved - Scar on the left lower leg. Patient continues to have edema of this leg with brawny discoloration - Discussed skin findings and treatment options at this time -??Continue wearing 20-30mmHg compression stocking on legs.?? - Continue elevating legs above level of the heart for 15 minutes 3xs a day if possible Photo was taken and charted with patient's verbal consent. Other items to document in the assessment/plan if relevant ??? OTC skin products discussed RTC: 3-4 week for rash follow up []Note routed to paralegal secretary []Recall has been placed in scheduling system [x]Appointment scheduled at checkout Scribe attestation: Fawn Ramirez CMA has performed the documentation for this encounter in the presence of and acting as a scribe for Fawn Powell MD I performed the above scribed service and agree with the accuracy of the documentation in this encounter. Reviewed and signed by: Fawn Powell MD Dermatology [facility] Patient seen and evaluated with staff client services vice president: Maame Dobbs MD Dermatology [facility] * Maame Dobbs MD - 12/22/2020 11:40 AM EDT I directly supervised Dr. Powell during this office visit. Dr. Powell presented the history and physical exam to me. I then saw and examined this patient with Dr. Powell . We reviewed the history andpertinent details and I confirmed the physical findings. I agree with the details of the history and physical exam as documented in Dr. Powells note. MAAME DOBBS MD Staff Physician documented in this encounter Plan of Treatment Not on file documented as of this encounter Visit Diagnoses Diagnosis Venous stasis ulcer of leg without varicose veins Unspecified venous (peripheral) insufficiency Eczema, unspecified type Impetigo documented in this encounter Care Teams Document Improvement Specialist Relationship Specialty Start Date End Date None None PCP - General 01/14/20 documented as of this encounter
--- OUTSIDE RECORDS SUMMARY | 2024-04-10 15:26 | XMS_ITS | Encounter Summary ---
Author Organization [facility] Address [facility] [place] [address] Care Team Providers Care Geochemical Laboratory Technician Name Role Phone None Primary Care Provider Unavailabl e Reason for Visit * Reason Comments Follow-up Encounter Details Date Type Department Care Team (Late st Contact Info) Description 02/04/2020 11:30 AM EDT Office Visit Dermatology at [facility] [address] [place] [address] Carlos Carrizales MD [facility] [address] [address] Dermatitis; Seborrheic dermatitis Social History Tobacco Use Types Packs/Day Years Used Date Smoking Tobacco: Every Day Smokeless Tobacco: Never Sex and Gender Information Value Date Recorded Sex Assigned at Not on file Gender Identity Not on file Sexual Orientation Not on file documented as of this encounter Patient Instructions * Patient Instructions* Fawn Ramirez CCMA - 02/04/2020 11:30 AM EDT For the legs: - Start Rx: Mupirocin 2% Cream, Apply to affected areas of the lower extremities two times daily for 7 days - Continue Rx: Triamcinolone 0.1% cream: Apply twice daily to the affected areas on the lower extremities for 3 weeks, take one week off, and repeat as needed - On the week of of triamcinolone, apply CeraVe twice daily For the wrists: - Continue Rx: Augmented Betamethasone 0.05% Ointment: Apply twice daily to the affected areas on the wrist for 2 weeks, take one week off, and repeat as needed. - Over the counter Sarna anti-itch lotion - Keep a log of when the rash flares For the face: - Over the counter salicylic acid face wash (Neutrogena). Complete this process twice daily - Start Rx: Ketoconazole 2% Cream: Apply once daily to affected areas on the face for 21 days and then as needed subsequently. - At the other time of the day, apply daily moisturizer such as CeraVe documented in this encounter Progress Notes * Carlos Aquino MD - 02/04/2020 11:30 AM EDT Images from the original note were not included. DERMATOLOGY - ESTABLISHED PATIENT FOLLOW-UP Date of service: 02/04/2020 Alesia Meehan : 1960, 59 y.o. Chief Complaint: Chief Complaint Patient presents with ??? Follow-up HPI: Alesia Meehan is a 59 y.o. female last seen by me on 01/21/2020. Ms. Meehan returns today for a follow up. Patient notes of some intermittent pain and itchiness on the lower extremities. She has been using wet wraps with triamcinolone cream with some improvement. Patient finished her course of ciprofloxacin. Patient also notes of a rash on the face that can be itchy. She reports of some mild scale. No treatment tried. Present for at least several weeks. Relevant Skin History: - Okay to leave [...] children, - Current smoker - Works at [employer] ?? Medications: Current Outpatient Medications Medication Sig Dispense Refill ??? ciprofloxacin (Cipro) 500 mg Tablet Take [...] (Patient not taking: No sig reported) ??? mupirocin (BACTROBAN) 2 % ointment 1 Appl(s), Top, Twice daily (Patient not [...] - Skin: No other skin concerns. Examination: - Constitutional: Patient was alert, well-appearing and in no noticeable distress. - Focused Exam: Skin examination of the face, hands, wrists, and lower extremities was normal with the exception of the findings listed below - A nurse/MA was present and on standby during my examination. Diagnosis/Skin findings/Assessment/Plan: #. Venous Stasis Dermatitis, suspect Lipodermatosclerosis. * [place] indurated circumferential plaque from the ankle to just below the knee with some overlying scale. - Discontinue wet wraps at this time - Continue Rx: Triamcinolone 0.1% cream: Apply [...] unna boots application in the past, patient declined Given history of superimposed infection: - Finished 14 day course of ciprofloxacin (01/14/20-01/28/20). - Wound Culture from 01/14/20: Proteus mirabilis, few Beta-hemolytic strep. - Utilize 1:6 vinegar solution to decrease microbial load on the leg. Can use apple cider vinegar. Apply daily after bathing. - Start Rx: Mupirocin 2% ointment, Apply to affected areas of the lower extremities two times dailyfor 7 days #. Irritant??Contact??Dermatitis *??On the??bilateral wrists there are thin pink lichenified plaques - Recommend moisturizer daily after any time [...] flares to trace back origin of rash - Recommend Sarna anti-itch lotion #. Seborrheic Dermatitis * Erythematous plaques with greasy scale involving the face - Discussed the pathogenesis of this condition which is thought to involve an inflammatory responseto [place] furfur yeast - Start Rx: Ketoconazole 2% Cream: Apply once daily to affected areas on the face for 21 days and then as needed subsequently. - Recommend salicylic acid face wash to use twice daily (OTC Neutrogena, [place]). RTC: 1 month teleheatl follow up, scheduled upon exciting Note initiated by CAROL Romero. I, CAROL Romero, have performed the documentation for this encounter in the presence of andacting as a scribe for Carlos Aquino MD. I performed the services which were documented by the scribe, and I agree with the accuracy of the documentation in this encounter. Carlos Aquino MD Reviewed and signed by: Carlos Aquion MD Resident in Dermatology [facility] Patient seen and evaluated with staff supervisor finishing: Simón Maldonado MD Department of Dermatology [facility] * Simón Maldonado MD - 02/04/2020 11:30 AM EDT I directly supervised Dr. Aquino in the care of this patient. I saw and evaluated this patient with Dr. Aquino. He presented the history and physical exam details to me, then we saw the patient together and I confirmed these findings. I agree with details as written. My physical examination confirms Dr. Aquino's findings. The assessment and plan were formulated in discussion with me at the time of visit and I agree withthem as documented. SIMÓN MALDONADO MD [facility]AD Staff Physician documented in this encounter Plan of Treatment Not on file documented as of this encounter Visit Diagnoses Diagnosis Dermatitis Contact dermatitis and other eczema, due to unspecified cause Seborrheic dermatitis Seborrheic dermatitis, unspecified documented in this encounter Care Teams Geochemical Laboratory Technician Relationship Specialty Start Date End Date None None PCP - General 01/14/20 documented as of this encounter
--- OUTSIDE RECORDS SUMMARY | 2024-04-10 15:26 | XMS_ITS | Encounter Summary ---
Author Organization [facility] Address [facility] [place] [address] Care Team Providers Care Supervisor Finish End Name Role Phone None Primary Care Provider Unavailabl e Reason for Visit * Reason Comments Follow-up Encounter Details Date Type Department Care Team (Late st Contact Info) Description 09/30/2020 2:00 PM EDT Office Visit Dermatology at [facility] [address] [place] [address] Fawn Powell MD [facility] [address] [address] Venous stasis ulcer of leg without varicose veins; Clavus Social History Tobacco Use Types Packs/Day Years Used Date Smoking Tobacco: Every Day Smokeless Tobacco: Never Sex and Gender Information Value Date Recorded Sex Assigned at Not on file Gender Identity Not on file Sexual Orientation Not on file documented as of this encounter Progress Notes * Fawn Powell - 09/30/2020 2:00 PM EDT Images from the original note were not included. DEPARTMENT OF DERMATOLOGY Medical Dermatology Clinic Provider: Fawn Powell MD Patient's preferred name Alesia Patient's preferred pronouns She/Her/Hers Preferred contact method for results []myDH []Letter [x]Phone: Detailed phone message OK? Yes [phone] PAST MEDICAL HISTORY Y/N Date, location, treatment Melanoma no Dysplastic nevi no SCC no BCC no AKs no Blistering sunburns or tanning bed use no Other relevant past medical history (i.e. eczema, psoriasis, birthmarks, immunosuppression) Venous stasis dermatitis History of unknown clotting disorder and multiple DVT FAMILY HISTORY Y/N Melanoma no NMSC no Other relevant family history no SOCIAL HISTORY Occupation: Works at [employer] History of Present Illness: Alesia Meehan is a 60 y.o. year old. Patient returns to clinic today for evaluation of the left lower leg. She has a history of venous stasis dermatitis previously treated with triamcinolone, elevation. In the past she had a superimposed infection treated with ciprofloxacin. She reports that 3 weeks ago she developed swelling and a sore developed on her left lowerleg. The area is very tender. She has been using triamcinolone 0.1% cream with no improvement. Of note, patient reports a history of an unknown clotting disorder for which she should be on coumadin but is not. She does not have a PCP and has been of blood thinners for at least two years. She has a history of previous DVTs. She also has a concerning lesion on the bottom of her left great toe. The area is painful when walking. Medications: Reviewed in eD-H Allergies: Reviewed in eD-H Skin Examination: Focused skin examination of the left lower leg and foot was normal with the exception of the findings below Assessment/Plan #. Venous ulcer with stasis change: Patient with edema, brawny discoloration, scale on the left lower leg. On the medial aspect of the leg there is a well- demarcated ulcer with fibrinous debris. There is some tenderness to palpation - recommend ultrasound to evaluate for DVT. Discussed risks of DVT including pulmonary embolism. Patient declines at this time. - bacterial culture taken today - Rx: Augmented Betamethasone Dipropionate 0.05% Ointment: Apply twice daily to affected areas of the left lower leg for 21 days, take one week off, and repeat as needed - Discussed risks of prolonged topical corticosteroid use including atrophy, striae, hypopigmentation, tachyphylaxis. - Recommended 20-30mmHg compression stocking to legs. - Recommend elevating legs above level of the heart for 15 minutes 3xs a day. - recommend 1:6 dilute vinegar spray # Clavus: On the right plantar foot, hyperkeratotic papules overlying the MTP joints. Corns (clavi)are keratinous thickenings of the skin due to repeated friction or pressure to the area of the forefoot. They are typically secondary to faulty biomechanics of the foot and or ill fitting footwear. - Ensure properly fitted shoes and footwear - Instructed to purchase OTC orthotic insoles to redistribute the pressure over bony prominences. - Pare down the corn with a No. 15 blade Photo was taken and charted with patient's verbal consent. RTC: 3 week ulcer follow up Scribe attestation: CAROL Simon who has performed the documentation for this encounter in the presence of and acting as a scribe for Fawn Powell MD I performed the above scribed service and agree with the accuracy of the documentation in this encounter. Reviewed and signed by: Fawn Powell MD Dermatology [facility] Patient seen and evaluated with staff patient care director: Leatha Boss MD Department of Dermatology [facility] * Leatha Boss MD - 09/30/2020 2:00 PM EDT I directly supervised Dr. Powell during this office visit. Dr. Powell presented the history and physical exam to me. I then saw and examined this patient with Dr. Powell . We reviewed the history andpertinent details and I confirmed the physical findings. I agree with the details of the history and physical exam as documented in Dr. Powells note. LEATHA BOSS MD Staff Physician * Fawn Powell - 09/30/2020 2:00 PM EDT Called Alesia to discuss her culture results. There was no answer, a voicemail was left asking for areturn call documented in this encounter Plan of Treatment Not on file documented as of this encounter Procedures Procedure Name Priority Date/Time Associated Diagnosis Comments HC GRAM STAIN FOR BACTERIA Routine 09/30/2020 4:51 PM EDT Venous stasis ulcer of leg without varicose veins documented in this encounter Results * (ABNORMAL) Skin/Superficial Wound Culture Leg, Left (09/30/2020 4:51 PM EDT) Skin/Superfic ial Wound Culture Many Staphylococcus aureus Many mixed bacterial morphotypes suggestive of normal cutaneous matthew (A) [facility] Gram Stain No Neutrophils seen. Rare Gram Positive Cocci seen (A) [facility] Organism Staphylococcus aureus(A) [facility] Organism Gram Positive Cocci(A) [facility] Swab from superficial wound (specimen) STRUCTURE OF LEFT LOWER LIMB / Unknown 09/30/2020 4:51 PM EDT 09/30/2020 6:10 PM EDT Narrative Resulting Agency Comment Spec In Lab Organism Antibiotic Method Susceptibility Staphylococcus aureus Cefazolin VITEK 2 METHOD Sensitive Staphylococcus aureus Ceftriaxone VITEK 2 METHOD Sensitive Staphylococcus aureus Clindamycin VITEK 2 METHOD Sensitive Staphylococcus aureus Erythromycin VITEK 2 METHOD Sensitive Staphylococcus aureus Gentamicin VITEK 2 METHOD Sensitive Comment:Gentamicin i s not appropriate for Reagan-therapy. Staphylococcus aureus Oxacillin VITEK 2 METHOD Sensitive Comment: Oxacillin (methicillin) susceptibility is a surrogate for the oral and parenteral cephalosporins, beta-lactam combination agents (amoxicillin-clavulanate, ampicillin-sulbactam and piperacillin-tazobactam) and carbapenem agents. ??It is NOT a surrogate for penicillin, ampicillin or piperacillin susceptibility. Staphylococcus aureus Trimethoprim/Sulfa VITEK 2 METHO D Sensitive Staphylococcus aureus Tetracycline VITEK 2 METHOD Sensitive Staphylococcus aureus Vancomycin VITEK 2 METHOD Sensitive Leatha Boss MD MICROBIOLOGY - GENER AL ORDERABLES [facility] [place] [place] [address] documented in this encounter Visit Diagnoses Diagnosis Venous stasis ulcer of leg without varicose veins Unspecified venous (peripheral) insufficiency Clavus Corns and callosities documented in this encounter Care Teams Supervisor Finish End Relationship Specialty Start Date End Date None None PCP - General 01/14/20 documented as of this encounter
--- OUTSIDE RECORDS SUMMARY | 2024-04-10 15:26 | XMS_ITS | Clinical Summary ---
Author Organization [facility] Address [facility] [place] [address] Care Team Providers Care Electronic Drafter Name Role Phone None Primary Care Provider Unavailabl e Allergies Active Allergy Reactions Criticality Noted Date Comments Clindamycin Hcl CIS - GI upset, Diarrhea Sulfa (Sulfonamide Antibiotics) CIS - Hives Medications Medication Sig Dispensed Refills Start Date End Date Status CIS Free Text Med - Flovent 1 Puff(s), Inh, Twice daily 02/05/2010 Active Additional Information Patient not taking.Reported on 01/14/2020 CIS Free Text Med - Albuterol 2 Puff(s), Inh, Four times daily PRN 02/05/2010 Active Additional Information Patient not taking.Reported on 01/14/2020 simvastatin (ZOCOR) 40 mg tablet 40 MG = 1 Tablet(s), PO, Once daily 02/05/2010 Active warfarin (COUMADIN) 5 mg tablet Variable by Day, PO 02/05/2010 Active desoximetasone (TOPICORT) 0.25 % cream 1 Appl(s), Top, Twice daily 02/05/2010 Active hydroCODone-acetamin ophen (VICODIN) 5-500 mg per tablet 1 Tablet(s), PO, QHS 02/05/2010 Active Cadexomer Iodine (IODOSORB) 0.9 % gelIndications:Leg ulcer Apply topically. To ulcer on right lower leg once daily 40 g 0 10/06/2011 Active Additional Information Patient not taking.Reported on 01/14/2020 ciprofloxacin (Cipro) 500 mg Tablet Take 1 tablet by mouth 2 times daily. 28 tablet 01/14/2020 Active triamcinolone (KENALOG) 0.1 % CreamIndications:Darrell matitis Apply to the affected area on the leg with wet wraps three times daily for 1 week. Use a liberal amount of this cream. 454 g 1 01/14/2020 Active mupirocin (BACTROBAN) 2 % Ointment Apply thin layer to the entire left lower leg twice a day for 7 days. 30 g 02/04/2020 Active ketoconazole (NIZORAL) 2 % CreamIndications:Ilan orrheic dermatitis Apply 1 each topically daily. Apply to face nightly after washing with a facial cleanser. 30 g 3 03/05/2020 Active ketoconazole (NIZORAL) 2 % Cream Apply topically to affected area on the feet twice daily for 3 weeks 30 g 1 10/27/2020 Active augmented betamethasone dipropionate (DIPROLENE-AF) 0.05 % OintmentIndications: Venous stasis ulcer of leg without varicose veins Apply to affected areas on the legs twice a day (after vinegar solution is applied) for 14 days. Take 1 week off, repeat if needed. 45 g 3 10/27/2020 Active augmented betamethasone dipropionate (DIPROLENE-AF) 0.05 % Ointment APPLY TOPICALLY TWICE A DAY TO AFFECTED AREAS OF THE LEFT LOWER LEG FOR 21 DAYS TAKE ONE WEEK OFF AND REPEAT NEEDED 45 g 12/16/2020 Active clobetasoL (TEMOVATE) 0.05 % OintmentIndications: Eczema, unspecified type,Impetigo Apply twice daily to affected areas on the trunk and extremities for 21 days, then take one week off, and repeat as needed 60 g 2 12/22/2020 Active doxycycline monohydrate (Monodox) 100 mg CapsuleIndications:E czema, unspecified type,Impetigo Take 1 capsule by mouth 2 times daily. 20 capsule 12/22/2020 Active hydrocortisone 2.5 % OintmentIndications: Eczema, unspecified type Apply twice daily to the affected areas on the face and neck for 7 days, then take one week off, and repeat as needed. 30 g 2 12/22/2020 Active Active Problems Problem Noted Date Diagnosed Date Dressing change 11/30/2011 Leg ulcer 10/06/2011 Stasis dermatitis 10/06/2011 Immunizations Name Administration Dates Next Due Influenza Quadrivalent, Preservative Free 2017 Social History Tobacco Use Types Packs/Day Years Used Date Smoking Tobacco: Every Day Smokeless Tobacco: Never Sex and Gender Information Value Date Recorded Sex Assigned at Not on file Gender Identity Not on file Sexual Orientation Not on file Plan of Treatment Health Maintenance Due Date Last Done Comments CT Colonography 1960 Colonoscopy 1960 Colorectal Cancer Screening 1960 FIT DNA 1960 FIT 1960 Sigmoidoscopy (10 year) with FIT yearly 1960 Sigmoidoscopy 1960 HIV screen 1978 Hepatitis C Screening 1978 Tetanus/Diphtheria/Pertussis Vaccines (1 - Tdap) 04/08 HPV test 1990 PAP Smear 1990 Breast Cancer Share Decision Needed 2000 Breast Cancer screening 2000 Zoster vaccine (1 of 2) 2010 Covid-19 Vaccine (1 - season) 2024 Influenza (Flu) vaccine (1 o f 1 - Influenza standard series) 02/12/2024 03/11/2018 Advance Directives Documents on File Type Date Recorded Patient Pound Attendant Expl anation Advance Directives and Livin elmer Will 08/12/2010 8:56 AM Care Teams Electronic Drafter Relationship Specialty Start Date End Date None None PCP - General 01/14/20
--- OUTSIDE RECORDS SUMMARY | 2024-04-10 15:26 | XMS_ITS | Encounter Summary ---
Author Organization Count Includes [facility] Address [facility] [place] [address] Care Team Providers Care Seismic Computer Name Role Phone None Primary Care Provider Unavailabl e Encounter Details Date Type Department Care Team (Late st Contact Info) Description 10/08/2020 Telephone Dermatology at [facility] [address] [place] [address] Fawn Powell MD [facility] [address] [place] [address] Social History Tobacco Use Types Packs/Day Years Used Date Smoking Tobacco: Every Day Smokeless Tobacco: Never Sex and Gender Information Value Date Recorded Sex Assigned at Not on file Gender Identity Not on file Sexual Orientation Not on file documented as of this encounter Miscellaneous Notes * Telephone Encounter - Fawn Powell - 10/13/2020 7:46 PM EDT Returned Alesia's call this afternoon to discuss her culture results. Plan to start keflex 500mg four times daily for 1 week * Telephone Encounter - Manda Thakkar MD - 10/08/2020 3:31 PM EDT Returned patient's call to discuss culture results. No answer, so brief voicemail recorded requesting call back to further discuss. * Telephone Encounter - Idania Senior - 10/08/2020 10:44 AM EDT Alesia Meehan is returning your call, best number to reach the patien [phone]. documented in this encounter Plan of Treatment Not on file documented as of this encounter Visit Diagnoses Diagnosis Skin infection Unspecified local infection of skin and subcutaneous tissue documented in this encounter Care Teams Seismic Computer Relationship Specialty Start Date End Date None None PCP - General 01/14/20 documented as of this encounter
--- OUTSIDE RECORDS SUMMARY | 2024-04-10 15:27 | XMS_ITS | Encounter Summary ---
Author Organization [facility] Address [facility] [place] [address] Care Team Providers Care Teacher Learning Disabled Name Role Phone Theodore Almaguer MD Primary Care Provider [phone] Reason for Visit * Reason Comments Skin Ulcer Encounter Details Date Type Department Care Team (Late st Contact Info) Description 11/22/2011 3:30 PM EDT [place] [address] Juan Carlos Chowdhury III, MD [facility] [address] [address] Stasis dermatitis; Leg ulcer Discharge Disposition: Home Social History Tobacco Use Types Packs/Day Years Used Date Smoking Tobacco: Every Day Sex and Gender Information Value Date Recorded Sex Assigned at Not on file Gender Identity Not on file Sexual Orientation Not on file documented as of this encounter Progress Notes * Juan Carlos Chowdhury III, MD - 11/22/2011 4:02 PM EDT DERMATOLOGY ESTABLISHED PATIENT CLINIC NOTE Date of service: 11/22/2011 Alesia Meehan : 1960 Provider: Juan Carlos Chowdhury MD PROBLEM: Leg ulcer SKIN HISTORY: Stasis ulcer HPI Alesia Meehan is a 51 y.o. year old female here today for a recheck of the ulcer on her lower left leg. She has been treating with the mepilex AG dressing. She feels it has gotten bigger with the recent onset of hot weather. She has had more swelling on her lower leg and this aggravates the situation. She is on her feet a lot and can't wear support stockings well. ADR: Allergies Allergen Reactions ??? Sulfa (Sulfonamide Antibiotics) CIS - Hives ??? Clindamycin Hcl CIS - GI upset, Diarrhea ROS General: feeling well Skin: denies other skin complaints EXAM General: NAD, pleasant, cooperative Skin: Significant skin findings: A. 1.0 cm x 2.0 cm shallow ulcer, anterior aspect of left lower leg.. Skin is smooth around the ulcer and the base of the ulcer is pink with no crusting. She has some mild edema. The lesion is granulating in at the sides . ASSESSMENT/PLAN: A. Stasis ulcer not improved. The site was cleansed with saline and redressed with Mephilex Ag She will continue to treat with the mepilex AG dressing, changing it every 2 days and try to elevate her legs whenever possible to relieve the edema. Follow up next Tuesday when Katelyn our wound nurse is here. Note initiated by: FELIX AGUILAR LPN Routed to physician for review and changes: Juan Carlos Chowdhury MD Section of Dermatology [facility] documented in this encounter Plan of Treatment Not on file documented as of this encounter Visit Diagnoses Diagnosis Stasis dermatitis Varicose veins of lower extremities with inflammation Leg ulcer Ulcer of lower limb, unspecified documented in this encounter Care Teams Teacher Learning Disabled Relationship Specialty Start Date End Date Theodore Almaguer MD [address] [place] [id number] PCP - General 07/20/11 01/13/20 documented as of this encounter
--- OUTSIDE RECORDS SUMMARY | 2024-04-10 15:27 | XMS_ITS | Encounter Summary ---
Author Organization [facility] [place] [address] Care Team Providers Care Flat Surfacer Name Role Phone Theodore Almaguer MD Primary Care Provider [phone] Encounter Details Date Type Department Care Team ([facility] st Contact Info) Description 06/01/2010 12:30 PM EST Office Visit Audiology at [address] [phone] Ailyn Edge AUD [facility] [place] [address] Discharge Disposition: Home Social History Tobacco Use Types Packs/Day Years Used Date Smoking Tobacco: Never Assessed Sex and Gender Information Value Date Recorded Sex Assigned at Not on file Gender Identity Not on file Sexual Orientation Not on file documented as of this encounter Plan of Treatment Not on file documented as of this encounter Visit Diagnoses Not on filedocumented in this encounter Care Teams Flat Surfacer Relationship Specialty Start Date End Date Theodore Almaguer MD [address] [place] [id number] PCP - General 05/05/10 07/19/11 documented as of this encounter
--- OUTSIDE RECORDS SUMMARY | 2024-04-10 15:27 | XMS_ITS | Encounter Summary ---
Author Organization [facility] Address [facility] [place] [address] Care Team Providers Care Gun Stock Maker Name Role Phone Theodore Almaguer MD Primary Care Provider [phone] Reason for Visit * Reason Comments Skin Lesion Encounter Details Date Type Department Care Team (Late st Contact Info) Description 10/06/2011 4:00 PM EDT [place] [address] Juan Carlos Chowdhury III, MD [facility] [address] [place] [address] Leg ulcer (Primary Dx); Stasis dermatitis Discharge Disposition: Home Social History Tobacco Use Types Packs/Day Years Used Date Smoking Tobacco: Never Assessed Sex and Gender Information Value Date Recorded Sex Assigned at Not on file Gender Identity Not on file Sexual Orientation Not on file documented as of this encounter Progress Notes * Juan Carlos Chowdhury III, MD - 10/06/2011 4:57 PM EDT DERMATOLOGY CONSULT NOTE Date of service: 10/06/2011 Alesia Meehan : 1960 Provider: Juan Carlos Chowdhury MD PROBLEM: Leg ulcer HPI Alesia Meehan is a 51 y.o. year old female here for a leg ulcer on her lower left leg that hasnot been seen or treated for over two years. She has had stress in her life and her has been diagnosed with cancer and will be here receiving radiation treatment. She has edema in that leg and admits that she is on her feet and does not have a lot of time to elevate her leg. The ulcer is crusted in and she report that it has drained from time to time. ADR: Allergies Allergen Reactions ??? Sulfa (Sulfonamide Antibiotics) CIS - Hives ??? Clindamycin Hcl CIS - GI upset, Diarrhea MEDS: Current outpatient prescriptions ordered prior to encounter Medication Sig Dispense Refill ??? CIS Free Text Med - Flovent 1 Puff(s), Inh, Twice daily ??? CIS Free Text Med - Albuterol 2 Puff(s), Inh, Four times daily PRN ??? simvastatin (ZOCOR) 40 mg tablet 40 MG = 1 Tablet(s), PO, Once daily ??? warfarin (COUMADIN) 5 mg tablet Variable by Day, PO ??? desoximetasone (TOPICORT) 0.25 % cream 1 Appl(s), Top, Twice daily ??? mupirocin (BACTROBAN) 2 % ointment 1 Appl(s), Top, Twice daily ??? hydroCODone-acetaminophen (VICODIN) 5-500 mg per tablet 1 Tablet(s), PO, QHS ??? ciprofloxacin (CIPRO) 500 mg tablet 500 MG = 1 Tablet(s), PO, Twice daily ROS General: feeling well Skin: denies other skin complaints EXAM General: NAD, pleasant, cooperative Skin:Focused exam of lower leg Significant skin findings: A. Edema is noted in both lower legsleft > right. The anterior aspect of the left lower leg shows erythema and some scaling with a central ulcer about 1.4 cm in diameter. The floor of the ulcer ifcrusted. ASSESSMENT/PLAN: A. Stasis dermatitis with ulceration, I discussed with patient treating the ulcer with Iodosorb or Collagenese, with a Mepilex border dressing. She can't afford the dressing or the medication, so we will clean the areawith saline every other day and apply Mephilex AG to the site, changing it QOD Follow up on Tuesday for wound check Note Initiated by: SAM GIRON LPN Reviewed and signed by: Juan Carlos Chowdhury MD Section of Dermatology [facility] documented in this encounter Plan of Treatment Not on file documented as of this encounter Visit Diagnoses Diagnosis Leg ulcer- Primary Ulcer of lower limb, unspecified Stasis dermatitis Varicose veins of lower extremities with inflammation documented in this encounter Care Teams Gun Stock Maker Relationship Specialty Start Date End Date Theodore Almaguer MD [address] [place] [id number] PCP - General 07/20/11 01/13/20 documented as of this encounter
--- OUTSIDE RECORDS SUMMARY | 2024-04-10 15:27 | XMS_ITS | Encounter Summary ---
Author Organization [facility] Address [address] [place] [address] Care Team Providers Care Supervisor Pipe Finishing Name Role Phone Unavailable Primary Care Provider Unavailabl e Encounter Details Date Type Department Care Team (Late st Contact Info) Description 10/10/2023 Lab Requisition [facility] Pathology & Laboratory Medicine - [facility] [address] [place] [address] Outr Resulting Lab, Provider Social History Tobacco Use Types Packs/Day Years Used Date Smoking Tobacco: Never Assessed Sex and Gender Information Value Date Recorded Sex Assigned at Not on file Gender Identity Not on file Sexual Orientation Not on file documented as of this encounter Plan of Treatment Not on file documented as of this encounter Procedures Procedure Name Priority Date/Time Associated Diagnosis Comments HEPATITIS C AB W REFLEX TO HCV RNA BY PCR Routine 10/10/2023 11:17 EDT documented in this encounter Results * HEPATITIS C AB W REFLEX TO HCV RNA BY PCR (10/10/2023 11:17 EDT) Hep C Antibody Negative Negative 10/10/2023 17:55 EDT [facility] Blood VENOUS BLOOD / Unknown 10/10/2023 11:17 EDT 10/10/2023 16:27 EDT Provider Outr Resulting Lab CHEMISTRY & BLOOD GAS ORDERABLES [facility] [address] [place], [place] [id number] documented in this encounter Visit Diagnoses Not on filedocumented in this encounter
--- OUTSIDE RECORDS SUMMARY | 2024-04-10 15:27 | XMS_ITS | Encounter Summary ---
Author Organization [facility] Address [facility] [place] [address] Care Team Providers Care Chief Underwriter Name Role Phone Theodore Almaguer MD Primary Care Provider [phone] Reason for Visit * Reason Comments Skin Ulcer Encounter Details Date Type Department Care Team (Late st Contact Info) Description 11/30/2011 8:15 AM ED[place] [address] Juan Carlos Chowdhury III, MD [facility] [address] [place] [address] Leg ulcer; Stasis dermatitis; Dressing change Discharge Disposition: Home Social History Tobacco Use Types Packs/Day Years Used Date Smoking Tobacco: Every Day Sex and Gender Information Value Date Recorded Sex Assigned at Not on file Gender Identity Not on file Sexual Orientation Not on file documented as of this encounter Progress Notes * Juan Carlos Chowdhury III, MD - 11/30/2011 9:32 AM EDT DERMATOLOGY ESTABLISHED PATIENT CLINIC NOTE Date of service: 11/30/2011 Alesia Meehan : 1960 Provider: Juan Carlos Chowdhury MD PROBLEM: Leg ulcer SKIN HISTORY: Stasis ulcer x 2 years HPI Alesia Meehan is a 51 y.o. [...] pleasant, cooperative Skin: Significant skin findings: A. 1.5 cm x 2.2 cm shallow ulcer, anterior aspect of left lower leg.. Skin is smooth around the ulcer and the base of the ulcer is pink with no crusting. She has some mild edema. The lesion is granulating in at the sides . ASSESSMENT/PLAN: A. Stasis ulcer not improved. We discussed therapy with the patient. She has a hard time wearing support stockings and keeping her legs elevated. We suggested she stop the Mepilex AG and try NormlgelAG is applied to the ulcer with Vaseline ointment on the good skin. An Unna boot and coban from toes to knee. She will come back next Tuesday for a recheck. She states it feels like a burning sensation in ulcer after this has been applied. If this becomes intolerable, she will remove everything, wash with soap and water, apply Vaseline ointment and cover with plain guaze until Tuesday. Hopefully this will prove beneficial. Call if problems arise. She has a lot of stress- her is having radiation and her children are with her at home too. Note initiated by: FELIX AGUILAR LPN Routed to physician for review and changes: Juan Carlos Chowdhury MD Section of Dermatology [facility] documented in this encounter Plan of Treatment Not on file documented as of this encounter Visit Diagnoses Diagnosis Leg ulcer Ulcer of lower limb, unspecified Stasis dermatitis Varicose veins of lower extremities with inflammation Dressing change Encounter for change or removal of nonsurgical wound dressing documented in this encounter Care Teams Chief Underwriter Relationship Specialty Start Date End Date Theodore Almaguer MD [address] [place] [id number] PCP - General 07/20/11 01/13/20 documented as of this encounter
--- OUTSIDE RECORDS SUMMARY | 2024-04-10 15:27 | XMS_ITS | Clinical Summary ---
Author Organization [facility] Address [address] [place] [id number] Care Team Providers Care Project Management Name Role Phone Unavailable Primary Care Provider Unavailabl e Social History Tobacco Use Types Packs/Day Years Used Date Smoking Tobacco: Never Assessed Sex and Gender Information Value Date Recorded Sex Assigned at Not on file Gender Identity Not on file Sexual Orientation Not on file Plan of Treatment Health Maintenance Due Date Last Done Comments RSV Immunization ( o r 60+ Years) (1 - 1-dose 60+ series) 2020 COVID-19 Vaccine (2022- season) 2023 Hepatitis C Screen Completed 10/10/2023 Procedures Procedure Name Priority Date/Time Associated Diagnosis Comments HEPATITIS C AB W REFLEX TO HCV RNA BY PCR Routine 10/10/2023 11:17 EDT from Last 3 Months or Most Recently Relevant to Health Maintenance Results * HEPATITIS C AB W REFLEX TO HCV RNA BY PCR (10/10/2023 11:17 EDT) Hep C Antibody Negative Negative 10/10/2023 17:55 EDT [facility] Blood VENOUS BLOOD / Unknown 10/10/2023 11:17 EDT 10/10/2023 16:27 EDT Provider Outr Resulting Lab CHEMISTRY & BLOOD GAS ORDERABLES [facility] [address] [place] [address] from Last 3 Months or Most Recently Relevant to Health Maintenance
--- OUTSIDE RECORDS SUMMARY | 2024-04-10 15:27 | XMS_ITS | Encounter Summary ---
Author Organization [facility] Address [facility] [place] [address] Care Team Providers Care Meat Cutting Teacher Name Role Phone None Primary Care Provider Unavailabl e Reason for Visit * Reason Comments Dermatitis * Consultation (Routine) - Specialty Diagnoses / Procedures Referred By Contezekiel t Referred To Contact Dermatology Diagnoses fungal and bacterial cellulitis Procedures fungal and bacterial cellulitis Alice John PA [address] [place] [address] [facility] [address] [place] [address] Referral ID Status Reason Start Date Expiration Date V isits Requested Visits Authorized [id number] 12/13/2019 12/12/2020 1 1 Encounter Details Date Type Department Care Team (Late st Contact Info) Description 01/14/2020 10:00 AM EDT Office Visit Dermatology at [facility] [address] [place] [id number] Liam Carrizales MD [facility] DR [address] [place] [address] Dermatitis Social History Tobacco Use Types Packs/Day Years Used Date Smoking Tobacco: Every Day Smokeless Tobacco: Never Sex and Gender Information Value Date Recorded Sex Assigned at Not on file Gender Identity Not on file Sexual Orientation Not on file documented as of this encounter Patient Instructions * Patient Instructions* Olivier Louise, CAROL - 01/14/2020 10:00 AM EDT Dilute Vinegar treatment: Use white household or apple cider vinegar. Mix 1 part vinegar with 6 parts water. Most prefer to put this into a spray bottle for convenience but also effective as a soak, in the bathtub or used to make a compress. (Soaking a washcloth is a popular way to deliver the treatment to your back.)This should feel soothing. If it stings you may need to add more water but stickto this dilution as long as it is tolerable. Allow the skin to air dry, do not rinse or wipe off afterwards. Do this at least once per day, more often if your skin is exposed to harsh cleansers, chemicals or other irritating factors. #. For hands and chest - Apply vinegar solution daily after any time hands get wet - Apply Rx: Augmented betamethasone ointment twice daily for two weeks, followed by one week off, repeat cycle as needed - Apply moisturizing cream on off week when not using augmented betamethasone ointment #. For Legs Recommended Domeboro soaks twice daily. Reviewed instructions with patient: -- Recommended preparing the soak in a large container, soaking a pillowcase in the solution, wrapping it around the leg, allowing it to sit for 15-20 minutes, then removing. ?? Recommended Rx: triamcinolone 0.1% cream wet wraps three times daily. Discussed at length the importance of completing this wound care 3 times a day, but patient is concerned about being able to do this while at work. For this application, I recommended trying to work with her employer to find timeto treat this condition. If unable, a heavy layer of triamcinolone 0.1% cream would be better than nothing at all in place of the third wet wrap. ?? Wet Wraps: 1. Apply thin layer of Rx: Triamcinolone 0.1% cream to the left lower leg. 2. Wrap the medication coated leg with cool wet towels. 3. Leave in place for 30 minutes to 1 hour, remove towels, pat dry. 4. Apply a second layer of Rx: triamcinolone 0.1% cream. 5. Dress wound with dry abdominal pads wrapped gently with Coband. ?? For infection: -- Rx: 500mg ciprofloxacin BID for 14 days. -- Wound culture obtained today, concerned for pseudomonas, abx may need to be adjusted pending culture results. -- Once the acute weeping settles down, discussed utilizing 1:6 vinegar solution to decrease microbial load on the leg. -- Obtaining CBC today. documented in this encounter Progress Notes * Liam Givens MD - 01/14/2020 10:00 AM EDT Images from the original note were not included. DERMATOLOGY - NEW PATIENT NOTE Date of service: 01/14/2020 Alesia Meehan : 1960, 59 y.o. Chief Complaint: Chief Complaint Patient presents with ??? Dermatitis HPI: Alesia Meehan is a 59 y.o. female referred by Alice John with the following concerns: Ms. Meehan is here today for evaluation of dermatitis on her left lower leg which have been goingon for at least six months. She has treated these areas with a plethora of different over the counter and prescription treatments in the last few months, and her condition has only been deteriorating. She has tried topical Benadryl, Vaseline, Bag Cassatt, oral abx (visited ER last month, given clotrimazole, doxycycline) and various other creams/ointments. She has not had fevers or chills. She note the leg is very painful and also very itchy. She has been keeping it wrapped with gauze at home. She had a similar problem like this before several years ago, and it improved with wound care. Relevant Skin History: - Okay to leave detailed message with results? 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 Her symptoms today do not feel like previous DVTs. Family History: Melanoma: no Relevant Social History: - 4 children, - Current smoker - Works at [employer]: Current Outpatient Medications Medication Sig Dispense Refill ??? Cadexomer Iodine (IODOSORB) 0.9 % gel Apply topically. To ulcer on right lower leg once daily 40 g 0 ??? CIS Free Text [...] MG = 1 Tablet(s), PO, Twice daily No current facility-administered medications for this visit. Allergies: Allergies Allergen Reactions ??? Clindamycin Hcl CIS - GI upset, Diarrhea ??? Sulfa (Sulfonamide Antibiotics) CIS - Hives Review of Systems: - General: Feels unwell - Skin: No other skin concerns. Examination: - Constitutional: Patient was alert, well-appearing and in no noticeable distress. - Focused Exam: Skin examination of the hands, arms, chest, and lower legs was normal with the exception of the findings listed below - CAROL Robles was present and on standby during my examination. Diagnosis/Skin findings/Assessment/Plan: #. Allergic Contact Dermatitis with Superimposed Bacterial Infection * Pungent edematous circumferential bright pink weeping plaque with a large ulcer on the posterior aspect of the leg, covered with green purulent material. Located on the left lower leg from the kneeto the ankle. Recommended Domeboro soaks twice daily. Reviewed instructions with patient: -- Recommended preparing the soak in a large container, soaking a pillowcase in the solution, wrapping it around the leg, allowing it to sit for 15-20 minutes, then removing. Recommended Rx: triamcinolone 0.1% cream wet wraps three times daily. Discussed at length the importance of completing this wound care 3 times a day, but patient is concerned about being able to do this while at work. For this application, I recommended trying to work with her employer to find timeto treat this condition. If unable, a heavy layer of triamcinolone 0.1% cream would be better than nothing at all in place of the third wet wrap. Wet Wraps: 1. Apply thin layer of Rx: Triamcinolone 0.1% cream to the left lower leg. 2. Wrap the medication coated leg with cool wet towels. 3. Leave in place for 30 minutes to 1 hour, remove towels, pat dry. 4. Apply a second layer of Rx: triamcinolone 0.1% cream. 5. Dress wound with dry abdominal pads wrapped gently with Coband. For infection: -- Rx: 500mg ciprofloxacin BID for 14 days. -- Wound culture obtained today, concerned for pseudomonas, abx may need to be adjusted pending culture results. -- Once the acute weeping settles down, discussed utilizing 1:6 vinegar solution to decrease microbial load on the leg. -- Obtaining CBC today. #. Irritant Contact Dermatitis * On the bilateral wrists are lichenified eczematous plaques with fissures and erosions. - Recommend vinegar solution daily after any time hands get wet - Rx: Augmented betamethasone ointment BID x2 weeks followed by 1 week off, repeat PRN - Apply moisturizing cream (recommended Cerave or Vanicream) on off week when not using augmented betamethasone ointment. RTC: Less than 1 week for follow up. The soonest patient can return is Saturday 01/20, scheduled appt before patient left the office. The following photos were obtained with patient consent: Note initiated by CAROL Robles. I, CAROL Robles, have performed the documentation for this encounter in the presence of and acting as a scribe for Liam Givens MD. I performed the services which were documented by the scribe, and I agree with the accuracy of the documentation in this encounter. Liam Givens MD Reviewed and signed by Liam Givens MD Resident in Dermatology [facility] Patient seen in conjunction with staff washhouse hand: Martha Alatorre MD Department of Dermatology [facility] * Martha Alatorre MD - 01/14/2020 10:00 AM EDT I directly supervised Dr. Givens during this office visit. Dr. Givens presented the history and physical exam to me. I then saw and examined this patient with Dr. Givens . We reviewed the history and pertinent details and I confirmed the physical findings. I agree with the details of the historyand physical exam as documented in Dr. Givens's note. MARTHA ALATORRE MD Staff Physician documented in this encounter Miscellaneous Notes * Addendum Note - Liam Givens MD - 01/14/2020 10:00 AM EDTAddended by: LIAM GIVENS on: 01/14/2020 04:58 PM Modules accepted: Orders documented in this encounter Plan of Treatment Not on file documented as of this encounter Procedures Procedure Name Priority Date/Time Associated Diagnosis Comments HC SKIN CX, SUPERFICIAL Routine 01/14/2020 5:37 PM EDT Dermatitis HEMOGRAM Routine 01/14/2020 12:11 PM EDT Dermatitis DIFFERENTIAL, AUTOMATED Routine 01/14/2020 12:11 PM EDT Dermatitis HC CBC,PLT & AUTO DIFF Routine 01/14/2020 12:11 PM EDT Dermatitis documented in this encounter Results * (ABNORMAL) Skin/Superficial Wound Culture Leg, Left (01/14/2020 5:37 PM EDT) Skin/Superfic ial Wound Culture Many Proteus mirabilis Many Beta Hemolytic Streptococci, Group G (A) [facility] Gram Stain No Neutrophils seen. Many Gram Negative Rods seen Moderate Gram Positive Cocci seen Rare Gram Positive Rods seen (A) [facility] Organism Proteus mirabilis(A) [facility] Organism Beta Hemolytic Streptococci, Group G(A) [facility] Organism Gram Negative Rods(A) [facility] Organism Gram Positive Cocci(A) [facility] Organism Gram Positive Rods(A) [facility] Swab from superficial wound (specimen) STRUCTURE OF LEFT LOWER LIMB / Unknown 01/14/2020 5:37 PM EDT 01/14/2020 7:06 PM EDT Narrative Resulting Agency Comment Spec In Lab Organism Antibiotic Method Susceptibility Proteus mirabilis Amikacin VITEK 2 METHOD Sensitive Proteus mirabilis Ampicillin + Sulbactam VITEK 2 METHO D Sensitive Proteus mirabilis Aztreonam VITEK 2 METHOD Sensitive Proteus mirabilis Ceftazidime VITEK 2 METHOD <=1: Sensitive Proteus mirabilis Ceftriaxone VITEK 2 METHOD Sensitive Proteus mirabilis Ertapenem VITEK 2 METHOD Sensitive Proteus mirabilis Gentamicin VITEK 2 METHOD Sensitive Proteus mirabilis Levofloxacin VITEK 2 METHOD Sensitive Comment: Levofloxacin and Ciprofloxacin may not adequately treat infections in critically ill patients even when isolates test susceptible in the laboratory. Contact Infectious Disease before using in critically ill patients. Proteus mirabilis Meropenem VITEK 2 METHOD <=0.25: Sensitive Proteus mirabilis Piperacillin/Tazobactam VITEK 2 METH OD <=4: Sensitive Proteus mirabilis Tetracycline VITEK 2 METHOD Resistant Proteus mirabilis Tigecycline VITEK 2 METHOD Resistant Proteus mirabilis Tobramycin VITEK 2 METHOD Sensitive Proteus mirabilis Trimethoprim/Sulfa VITEK 2 METHOD Sensitive Martha Alatorre MD MICROBIOLOGY - GENER AL ORDERABLES [facility] [place] [address] * (ABNORMAL) Differential, Automated (01/14/2020 12:11 PM EDT) Neutrophil % 87.0 % [facility] Neutrophil Absolute 18.63(H) 1.70 - 6.10 x10(3)/mc L [facility] Lymph % 6.4 % [facility] Lymphocytes Abs 1.4 0.9 - 3.2 x10(3)/[facility] Monocyte % 5.2 % [facility] Monocyte Abs 1.1(H) 0.3 - 0.9 x10(3)/[facility] Eos % 0.5 % [facility] Eosinophils Abs 0.1 0.0 - 0.4 x10(3)/[facility] Basophil % 0.3 % [facility] Baso Absolute 0.1 0.0 - 0.1 x10(3)/[facility] Immature Gran % 0.60 % [facility] Comment: Immature granulocytes(IG's)percentage and absolute count will include metamyelocytes, myelocytes, and promyelocytes. Blood smears from CBCs yielding IG's will be scanned manually for concordance. If this scan disagrees with the automated IG or if promyelocytes are noted, a manual differential will be performed. Immature Gran Absolute 0.13(H) 0.00 - 0.04 x10(3)/[facility] Blood specimen (specimen) 01/14/2020 12:11 PM EDT 01/14/2020 3:15 PM EDT Narrative Resulting Agency Comment Spec In Lab Liam Carrizales MD HEMATOLOGY ORDERAB LES [facility] [place] [address] * (ABNORMAL) Hemogram (01/14/2020 12:11 PM EDT) White Blood Cell 21.4(H) 4.0 - 9.5 x10(3)/[facility] Red Blood Cell 4.36 4.00 - 5.21 x10(6)/[facility] Hemoglobin 12.6 11.7 - 15.5 gm/dL [facility] Hematocrit 41.5 35.7 - 45.8 % [facility] Mean Cell Volume 95.2(H) 82.6 - 94.4 fL [facility] Mean Cell Hemoglobin 28.9 27.1 - 32.0 pg [facility] Mean Cell Hemoglobin Concentration 30.4(L) 31.7 - 35.0 gm/dL [facility] Platelet 367(H) 145 - 357 x10(3)/mc L [facility] RDW Standard Deviation 51.2(H) 37.0 - 46.0 fL [facility] RDW coefficient of variation 14.6(H) 11.5 - 14.1 % [facility] Mean Platelet Volume 9.5 7.6 - 12.9 fL [facility] NRBC% auto 0.0 % [facility] NRBC Absolute 0.000 0.000 - 0.000 x10(3)/mc L [facility] Blood specimen (specimen) 01/14/2020 12:11 PM EDT 01/14/2020 3:15 PM EDT Narrative Resulting Agency Comment Spec In Lab Liam Carrizales MD HEMATOLOGY ORDERAB LES Performing Organization Address City/State/[facility] Co de Phone Number [facility] [place] [address] documented in this encounter Visit Diagnoses Diagnosis Dermatitis Contact dermatitis and other eczema, due to unspecified cause documented in this encounter Care Teams Meat Cutting Teacher Relationship Specialty Start Date End Date None None PCP - General 01/14/20 documented as of this encounter
--- OUTSIDE RECORDS SUMMARY | 2024-04-10 15:27 | XMS_ITS | Encounter Summary ---
Author Organization [facility] Address [address] [place] [address] Care Team Providers Care Maintenance Technician 3Rd Shift Name Role Phone Unavailable Primary Care Provider Unavailabl e Encounter Details Date Type Department Care Team (Late st Contact Info) Description 10/10/2023 Lab Requisition [facility] Pathology & Laboratory Medicine - [address] [address] Outr Resulting Lab, Provider Social History Tobacco [...] Procedure Name Priority Date/Time Associated Diagnosis Comments HIV 1/2 ANTIGEN AND ANTIBODY, 4TH GENERATION Routine 10/10/2023 11:17 EDT documented in this encounter Results * HIV 1/2 ANTIGEN AND ANTIBODY, 4TH GENERATION (10/10/2023 11:17 EDT) HIV 1 and 2 Antibody/p24 Antigen, 4th Generation Negative Negative 10/10/2023 18:25 EDT [facility] Comment:If acute HIV-1 infec tion is suspected in a high risk patient, submit plasma specimen for HIV-1 RNA quantitation test. Blood VENOUS BLOOD / Unknown 10/10/2023 11:17 EDT 10/10/2023 16:27 EDT Narrative [facility] - 10/10/2023 18:25 EDT Fourth Generation assay performed on the Siemens Centaur XPT. Provider Outr Resulting Lab IMMUNOLOGY A ND SEROLOGY ORDERABLES [facility] [address] [place] [address] documented in this encounter Visit Diagnoses Not on filedocumented in this encounter
--- OUTSIDE RECORDS SUMMARY | 2024-04-10 15:27 | XMS_ITS | Encounter Summary ---
Author Organization [facility] Address [facility] [place] [address] [place] [address] Care Team Providers Care Utilization Engineer Name Role Phone Theodore Almaguer MD Primary Care Provider [phone] Reason for Visit * Reason Comments Skin Ulcer Encounter Details Date Type Department Care Team (Late st Contact Info) Description 11/03/2011 3:00 PM EDT Follow-[place] [address] Juan Carlos Chowdhury III, MD [facility] [address] [place] [address] Leg ulcer; Stasis dermatitis Discharge Disposition: Home Social History Tobacco Use Types Packs/Day Years Used Date Smoking Tobacco: Every Day Sex and Gender Information Value Date Recorded Sex Assigned at Not on file Gender Identity Not on file Sexual Orientation Not on file documented as of this encounter Progress Notes * Juan Carlos Chowdhury III, MD - 11/03/2011 3:01 PM EDT DERMATOLOGY ESTABLISHED PATIENT CLINIC NOTE Date of service: 11/03/2011 Alesia Meehan : 1960 Provider: Juan Carlos Chowdhury MD PROBLEM: Leg ulcer SKIN HISTORY: Stasis ulcer HPI Alesia Meehan is a 51 y.o. year old female here today for a recheck of the ulcer on her lower left leg. She has been treating with the mepilex AG dressing. She feels it is healing in slowly. ADR: Allergies Allergen Reactions ??? Sulfa (Sulfonamide Antibiotics) CIS - Hives ??? Clindamycin Hcl CIS - GI upset, Diarrhea ROS General: feeling well Skin: denies other skin complaints EXAM General: NAD, pleasant, cooperative Skin: Significant skin findings: A. 1.2 cm x 1 cm shallow ulcer. Skin is smooth around the ulcer and the base of the ulcer is pink with no crusting. She has some mild edema. The lesion is granulating in at the sides . ASSESSMENT/PLAN: A. Stasis ulcer improved with Mephilex AG dressing . The site was cleansed with saline and redressed with Mephilex Ag She will continue to treat with the mepilex AG dressing, changing it every 2 days and try to elevate her legs whenever possible to relieve the edema. Follow up in 2 weeks Note initiated by: SAM GIRON LPN Routed to physician for review and changes: Juan Carlos Chowdhury MD Section of Dermatology [facility] documented in this encounter Plan of Treatment Not on file documented as of this encounter Visit Diagnoses Diagnosis Leg ulcer Ulcer of lower limb, unspecified Stasis dermatitis Varicose veins of lower extremities with inflammation documented in this encounter Care Teams Utilization Engineer Relationship Specialty Start Date End Date Theodore Almaguer MD [address] [place] [id number] PCP - General 07/20/11 01/13/20 documented as of this encounter
--- OUTSIDE RECORDS SUMMARY | 2024-04-10 15:27 | XMS_ITS | Referral Summary ---
Author Organization [facility] Address [address] [place] [address] Care Team Providers Care Computer Video Game Designer Name Role Phone Unavailable Primary Care Provider Unavailabl e Social History Tobacco Use Types Packs/Day Years Used Date Smoking Tobacco: Never Assessed Sex and Gender Information Value Date Recorded Sex Assigned at Not on file Gender Identity Not on file Sexual Orientation Not on file Plan of Treatment Not on file Procedures Procedure Name Priority Date/Time Associated Diagnosis Comments HEPATITIS C AB W REFLEX TO HCV RNA BY PCR Routine 10/10/2023 11:17 EDT from Last 3 Months or Most Recently Relevant to Health Maintenance Results * HEPATITIS C AB W REFLEX TO HCV RNA BY PCR (10/10/2023 11:17 EDT) Hep C Antibody Negative Negative 10/10/2023 17:55 EDT [facility] Blood VENOUS BLOOD / Unknown 10/10/2023 11:17 EDT 10/10/2023 16:27 EDT Provider Outr Resulting Lab CHEMISTRY & BLOOD GAS ORDERABLES [facility] [address], [place] [id number] from Last 3 Months or Most Recently Relevant to Health Maintenance
--- OUTSIDE RECORDS SUMMARY | 2024-04-10 15:27 | XMS_ITS | Encounter Summary ---
Author Organization [facility] Address [facility] [place] [address] Care Team Providers Care Child Day Care Provider Name Role Phone None Primary Care Provider Unavailabl e Reason for Visit * Reason Comments Follow-up Encounter Details Date Type Department Care Team (Late st Contact Info) Description 01/21/2020 11:30 AM EDT Office Visit Dermatology at [facility] [address] [place] [address] Carlos Carrizales MD [facility] [address] [address] Allergic contact dermatitis, unspecified trigger; Proteus infection Social History Tobacco Use Types Packs/Day Years Used Date Smoking Tobacco: Every Day Smokeless Tobacco: Never Sex and Gender Information Value Date Recorded Sex Assigned at Not on file Gender Identity Not on file Sexual Orientation Not on file documented as of this encounter Patient Instructions * Patient Instructions* Fawn Ramirez CCMA - 01/21/2020 11:30 AM EDT Plan: - Continue CeraVe application twice daily to the hands, with multiple applications of some type of moisturizer at work - Continue Rx: triamcinolone 0.1% cream: Apply three times daily to the affected areas of the left leg, and apply with wet wraps in the morning and at night. - Rx: Augmented betamethasone ointment Apply twice daily x2 weeks followed by 1 week off, repeat asneeded - Can restart the [place] wraps again with flares - Finish Rx: 500mg ciprofloxacin: Take two tablet by mouth daily - Return on 02/04/2020 at 11:30 Wet Wraps: 1. Apply thin layer of Rx: Triamcinolone 0.1% cream to the left lower leg. 2. Wrap the medication coated leg with cool wet towels. 3. Leave in place for 30 minutes to 1 hour, remove towels, pat dry. 4. Apply a second layer of Rx: triamcinolone 0.1% cream. 5. Dress wound with dry abdominal pads wrapped gently with Coband. documented in this encounter Progress Notes * Carlos Aquino MD - 01/21/2020 11:30 AM EDT Images from the original note were not included. DERMATOLOGY - ESTABLISHED PATIENT FOLLOW-UP Date of service: 01/21/2020 Alesia Meehan : 1960, 59 y.o. Chief Complaint: Chief Complaint Patient presents with ??? Follow-up HPI: Alesia Meehan is a 59 y.o. female last seen by me on 01/14/2020. Ms. Meehan returns today for a follow up of dermatitis. Patient reports that she has been applying triamcinolone to the area 3 times daily with improvement. She has also been taking ciprofloxacin 500 mg BID. She was not able to use vinegar on the areas due to a shortage of vinegar at the stores. Patient did not use domeboro soaks. Relevant Skin History: - Okay to leave detailed message with results? 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 Her symptoms today do not feel like previous DVTs. ?? Family History: Melanoma: no ?? Relevant Social History: - 4 children, - Current smoker - Works at [employer] ?? Medications: Current Outpatient Medications Medication Sig [...] Exam: Skin examination of the face, hands, and left lower leg was normal with the exception of the findings listed below - A nurse/MA was present and on standby during my examination. Diagnosis/Skin findings/Assessment/Plan: #. Allergic Contact Dermatitis with Superimposed Bacterial Infection, improved * [place] indurated circumferential plaque from the ankle to just below the knee with some overlying scale. - Discontinue Domeboro soaks at this time. - Continue Rx: triamcinolone 0.1% cream: Apply three times daily to the affected areas, and apply with wet wraps in the morning and at night. - Recommend elevating legs above the level of her heart when she can - Discussed unna boots application, patient declined - Will consider patch testing in the future ?? Wet Wraps: 1. Apply thin layer [...] wrapped gently with Coband. ?? For infection: - Finish Rx: 500mg ciprofloxacin BID for 14 days. - Wound Culture from 01/14/20: Proteus mirabilis, few Beta-hemolytic strep. - Utilize 1:6 vinegar solution to decrease microbial load on the leg. ?? #. Irritant Contact Dermatitis * On the bilateral wrists there are thin pink lichenified plaques - Recommend moisturizer daily after any time hands get wet - Rx: Augmented betamethasone ointment BID x2 weeks followed by 1 week off, repeat PRN - Apply moisturizing cream (recommended CeraVe, Aveeno, or Vanicream) on off week when not using augmented betamethasone ointment. RTC: 2 week for follow up of rash, scheduled upon exciting The following photos were obtained with patient consent: Note initiated by CAROL Romero. I, CAROL Romero, have performed the documentation for this encounter in the presence of andacting as a scribe for Carlos Aquino MD. I performed the services which were documented by the scribe, and I agree with the accuracy of the documentation in this encounter. Carlos Aquino MD Reviewed and signed by: Carlos Aquino MD Resident in Dermatology [facility] Patient seen and evaluated with staff intelligent systems engineer: Simón Maldonado MD Department of Dermatology [facility] * Simón Maldonado MD - 01/21/2020 11:30 AM EDT I directly supervised Dr. [...] as of this encounter Visit Diagnoses Diagnosis Allergic contact dermatitis, unspecified trigger Proteus infection Proteus (mirabilis) (morganii) infection in conditions classified elsewhere and of unspecified site documented in this encounter Care Teams Child Day Care Provider Relationship Specialty Start Date End Date None None PCP - General 01/14/20 documented as of this encounter
--- OUTSIDE RECORDS SUMMARY | 2024-04-10 15:27 | XMS_ITS | Encounter Summary ---
Author Organization [facility] Address [facility] [place] [address] Care Team Providers Care Injection Specialist Name Role Phone Theodore Almaguer MD Primary Care Provider [phone] Reason for Visit * Reason Comments Skin Ulcer Encounter Details Date Type Department Care Team (Late st Contact Info) Description 10/12/2011 9:00 AM EDT [place] [address] Juan Carlos Chowdhury III, MD [facility] [address] [place] [address] Leg ulcer Discharge Disposition: Home Social History Tobacco Use Types Packs/Day Years Used Date Smoking Tobacco: Every Day Sex and Gender Information Value Date Recorded Sex Assigned at Not on file Gender Identity Not on file Sexual Orientation Not on file documented as of this encounter Progress Notes * Juan Carlos Chowdhury III, MD - 10/12/2011 9:58 AM EDT DERMATOLOGY ESTABLISHED PATIENT CLINIC NOTE Date of service: 10/12/2011 Alesia Meehan : 1960 Provider: Juan Carlos Chowdhury MD PROBLEM:leg ulcer SKIN HISTORY: 2 year history of leg ulcer HPI Alesia Meehan is a 51 y.o. year old female. She is here today for a recheck of the ulcer on her lower left leg. She has been treating with the mepilex AG dressing. She feels it is better. ADR: Allergies Allergen Reactions ??? Sulfa (Sulfonamide Antibiotics) CIS - Hives ??? Clindamycin Hcl CIS - GI upset, Diarrhea ROS General: feeling well Skin: denies other skin complaints EXAM General: NAD, pleasant, cooperative Skin: Significant skin findings: A. 1.4 cm shallow ulcer. Skin is smooth around the ulcer and the base of the ulcer is pink with no crusting. She has some mild edema. The lesion is much brush cleaner than it was and is granulating in at the sides . ASSESSMENT/PLAN: A. Stasis ulcer improved with Mephilex AG dressing . She will continue to treat with the mepilex AGdressing, changing it every 2 days and try to elevate her legs whenever possible to relieve the edema. RTC in 1 week. Note initiated by: .Yoli Yañez LPN Routed to physician for review and changes: Juan Carlos Chowdhury MD Section of Dermatology [facility] documented in this encounter Plan of Treatment Not on file documented as of this encounter Visit Diagnoses Diagnosis Leg ulcer Ulcer of lower limb, unspecified documented in this encounter Care Teams Injection Specialist Relationship Specialty Start Date End Date Theodore Almaguer MD [address] [place] [address] PCP - General 07/20/11 01/13/20 documented as of this encounter
--- NOTE | 2024-04-10 15:30 | DI.CT_ITS ---
Exam(s) CT CHEST PE CTA EXAM: CT CHEST PE CTA CLINICAL HISTORY: SOB, history PEs, on coumadin, hypoxia. TECHNIQUE: Imaging Protocol: CT angiography of the chest was performed using pulmonary embolus karan col. Multi planar reconstructions were performed. CONTRAST MATERIAL: Intravenous: Omnipaque 350 Contrast volume: 100 cc COMPARISON: CT CT CHEST PE CTA from 06/09/2023 FINDINGS: CHEST: PULMONARY ARTERIES: There are no intraluminal filling defects to suggest acute pulmonary emboli. LUNGS: There are mild increased markings in the subpleural right lower lobe lateral basal segment. T here are no pleural effusions. MEDIASTINUM: There is no hilar nor mediastinal adenopathy. CARDIAC: Heart size is upper normal. There is no pericardial effusion.Caliber of the thoracic aorta is within normal limits. No dissection. There is no significant shift of the interventricular septum . PARTIALLY VISUALIZED UPPERMOST ABDOMEN: No adrenal masses. OSSEOUS: No significant osseous lesions.. IMPRESSION: 1. No evidence of acute pulmonary emboli. No evidence of pulmonary infarction.No pleural effusions. 2. There is mild infiltrate in the lateral basal segment of the right lower lobe. No pleural effusio ns. No infiltrates in the left lung. No significant lung nodules 3. No intrathoracic added Called by myself to ER provider 04/10/2024 5:30 p.m. RADIATION DOSE DELIVERED: 332.23mGy.cm Total DLP DATA REPOSITORY: All CT scans at this facility are submitted to the National Radiology Data Registry (NRDR) Dose Index Registry (DIR) with the [employer] ([employer]). RADIATION OPTIMIZATION: All CT scans at this facility use at least one of these dose optimization te chniques: automated exposure control; mA and/or kV adjustment per patient size (includes targeted exa ms where dose is matched to clinical indication); or iterative reconstruction.
--- NOTE | 2024-04-10 15:30 | ED.GENADUL_ITS ---
Discharge Plan Disposition Patient Disposition: Against Medical Advice Condition: Stable Discharge Details Clinical Impression: COPD exacerbation, Acute hypoxic respiratory failure, Pneumonia, Atrial fibrillation Primary Care Provider: Ivan Rodriguez ED Provider: Gerard Espino Home Meds and New Rx's Prescriptions: New prednisone 20 mg tablet 40 mg PO QDAY 5 Days Qty: 10 0RF doxycycline hyclate 100 mg capsule 100 mg PO BID 7 Days Qty: 14 0RF amoxicillin-pot clavulanate 875-125 mg tablet 1 tab PO BID 5 Days Qty: 10 0RF Continued budesonide-formoterol [Symbicort] 80-4.5 mcg/actuation HFA aerosol inhaler 2 puff inhalation Q12H Qty: 10.2 1RF fluticasone propionate [Flonase Allergy Relief] 50 mcg/actuation spray,suspension 2 spray intranasal Q12H Qty: 16 0RF Rx Instructions: administer into each nostril twice daily warfarin 2.5 mg tablet 2.5 mg PO DAILY Qty: 90 3RF Protocol: Dose Management Condition: Tuesday Dose/Route: 7.5 mg Instruction: 1 x 2.5 mg tablet, 1 x 5 mg tablet Condition: Tuesday Dose/Route: 7.5 mg Instruction: 1 x 2.5 mg tablet, 1 x 5 mg tablet Condition: Tuesday Dose/Route: 7.5 mg Instruction: 1 x 2.5 mg tablet, 1 x 5 mg tablet Condition: Tuesday Dose/Route: 7.5 mg Instruction: 1 x 2.5 mg tablet, 1 x 5 mg tablet Condition: Dose/Route: 7.5 mg Instruction: 1 x 2.5 mg tablet, 1 x 5 mg tablet Condition: Tuesday Dose/Route: 7.5 mg Instruction: 1 x 2.5 mg tablet, 1 x 5 mg tablet Condition: Tuesday Dose/Route: 7.5 mg Instruction: 1 x 2.5 mg tablet, 1 x 5 mg tablet Protocol Text: Adjustment Start Date: Tuesday03/19/24 INR Value: 2.2 INR Date: 03/19/24 Recheck Date: 04/18/24 Rx Instructions: as directed warfarin 5 mg tablet 5 mg PO DAILY Qty: 90 3RF Protocol: Dose Management Condition: Tuesday Dose/Route: 7.5 mg Instruction: 1 x 2.5 mg tablet, 1 x 5 mg tablet Condition: Tuesday Dose/Route: 7.5 mg Instruction: 1 x 2.5 mg tablet, 1 x 5 mg tablet Condition: Tuesday Dose/Route: 7.5 mg Instruction: 1 x 2.5 mg tablet, 1 x 5 mg tablet Condition: Tuesday Dose/Route: 7.5 mg Instruction: 1 x 2.5 mg tablet, 1 x 5 mg tablet Condition: Dose/Route: 7.5 mg Instruction: 1 x 2.5 mg tablet, 1 x 5 mg tablet Condition: Tuesday Dose/Route: 7.5 mg Instruction: 1 x 2.5 mg tablet, 1 x 5 mg tablet Condition: Tuesday Dose/Route: 7.5 mg Instruction: 1 x 2.5 mg tablet, 1 x 5 mg tablet Protocol Text: Adjustment Start Date: Tuesday03/19/24 INR Value: 2.2 INR Date: 03/19/24 Recheck Date: 04/18/24 albuterol sulfate 90 mcg/actuation HFA aerosol inhaler 2 puff inhalation Q6H PRN (Reason: shortness of breath or wheezing) Qty: 6.7 0RF Discharge Instructions Instructions: Chronic obstructive pulmonary disease (COPD), Atrial fibrill ation, Exacerbation of COPD, Heart failure and atrial fibrillation, Amoxicillin and Clavulanate, Doxycycline, Prednisone, Pneumonia, Adult ED Additional Instructions: You were seen in the emergency department for what he perceived as a low heart rate reading at home, you were found to be hypoxic or low on O2 to 84% on arrival. You have COPD, you have evidence of atrial fibrillation which is an arrhythmia of the heart that can lead to clots which is consistent with your history of pulmonary embolisms, there was evidence of a possible right-sided pneumonia. Your atrial fibrillation was poorly rate controlled with evidence of going into the 130s and 140s but also spontaneously returning to normal. You had a marker called a BNP that was elevated indicating you may be starting to have evidence of heart failure, this is common with morbid obesity. I did have you admitted to the hospital due to your increased oxygen requirement, and possible need for repeat echocardiogram and stress test for atrial fibrillation and starting rate control medications like metoprolol for this condition as well as IV antibiotics transitioning to p.o. antibiotics upon discharge. I think you need to talk to your doctor about adding some better at home breathing treatments for chronic COPD at home. Despite all of this information and the likelihood of respiratory failure and possibly you stated that you did not want to be admitted to the hospital and want to leave AGAINST MEDICAL ADVICE, we discussed your multiple comorbidities including possible new atrial fibrillation, likely COPD, pneumonia needing antibiotics and low oxygen readings with increased oxygen demand, these are all indicators of increased risk of . Despite this, you chose to leave AGAINST MEDICAL ADVICE even with an admitted bed that was already excepted by our hospitalist this evening Despite this, I have sent you prescriptions for two different antibiotics for pneumonia, and a prednisone burst for COPD exacerbation. Please follow-up with your PCP regarding your other health issues we have discussed tonight. Please return to the ER for increasing respiratory distress, chest pain, peripheral ed khoa, or any other emergent concern. Referrals: Ivan Rodriguez NP [Primary Care Provider] - [facility] General Date/Time Provider Initiated Documentation: 04/10/24 15:11 . HPI Narrative: 64 year-old female presents to ED today by POV/ambulating with her son with a chief complaint of constellation of complaints- states she noted her heart rate has been dropping to 30's then going up to 118- has confusion over if she has been diagnosed with COPD, as well as silent OK's, has frustrations with prior visits here, endorses history of PEs with onset since November- equates any respiratory complaint as an ongoing issue- states she feels she does not have a PE. Quality described as generally concerned with her heart rate, endorses some left-sided chest tightness at times, denies recent cough or severe respiratory illness, no radiation to intractable nausea or vomiting, high fever, syncope, states that she gets extremely short of breath even walking across the room, patient is still an active smoker, has nighttime O2 at home. Severity is described as severe. Palliating factors include has budesonide/formoterol and an albuterol inhaler at home. Provoking factors include nothing specific. Events leading up to the incident/Associated Symptoms: Patient states she recently had pulmonary function test, is unaware of results at this time . Patient is anticoagulated on warfarin due to history of PEs. Related Data Home Medications ?Medication ?Instructions ?Recorded ?Confirmed albuterol sulfate 90 mcg/actuation 2 puff inhalation Q6H PRN 06/12/22 04/10/24 aerosol inhaler shortness of breath or wheezing #6.7 grams budesonide-formoterol HFA 80 2 puff inhalation Q12H #10.2 grams 05/20/23 04/10/24 mcg-4.5 mcg/actuation aerosol inhaler (Symbicort) fluticasone propionate 50 2 spray intranasal Q12H #16 grams 05/20/23 04/10/24 mcg/actuation nasal spray,suspension (Flonase Allergy Relief) warfarin 5 mg tablet 5 mg PO DAILY #90 tabs 09/13/23 04/10/24 warfarin 2.5 mg tablet 2.5 mg PO DAILY #90 tabs 10/10/23 04/10/24 amoxicillin 875 mg-potassium 1 tab PO BID pneumonia 5 days #10 04/10/24 clavulanate 125 mg tablet tabs doxycycline hyclate 100 mg capsule 100 mg PO BID pneumonia 7 days #14 04/10/24 caps prednisone 20 mg tablet 40 mg (2 x 20 mg) PO QDAY 5 days 04/10/24 #10 tabs Previous Rx's ?Medication ?Instructions ?Recorded albuterol sulfate 90 mcg/actuation 2 puff inhalation Q6H PRN 06/12/22 aerosol inhaler shortness of breath or wheezing #6.7 grams budesonide-formoterol HFA 80 2 puff inhalation Q12H #10.2 grams 05/20/23 mcg-4.5 mcg/actuation aerosol inhaler (Symbicort) fluticasone propionate 50 2 spray intranasal Q12H #16 grams 05/20/23 mcg/actuation nasal spray,suspension (Flonase Allergy Relief) warfarin 5 mg tablet 5 mg PO DAILY #90 tabs 09/13/23 warfarin 2.5 mg tablet 2.5 mg PO DAILY #90 tabs 10/10/23 amoxicillin 875 mg-potassium 1 tab PO BID pneumonia 5 days #10 04/10/24 clavulanate 125 mg tablet tabs doxycycline hyclate 100 mg capsule 100 mg PO BID pneumonia 7 days #14 04/10/24 caps prednisone 20 mg tablet 40 mg (2 x 20 mg) PO QDAY 5 days 04/10/24 #10 tabs Allergies Allergy/AdvReac Type Severity Reaction Status Date / Time Sulfa (Sulfonamide Allergy Hives Verified 03/19/24 09:24 Antibiotics) General Stated Complaint: SOB SARAH: 2 Review of Systems All systems reviewed & are unremarkable except as noted in HPI and below Exam Narrative Exam Narrative: GENERAL APPEARANCE: Well-nourished, non-toxic, awake and alert, atraumatic, no acute distress. SKIN: Warm, pink, dry, intact, without rashes/lesions/ulcerations. HEAD: Normocephalic, atraumatic, normal hair distribution for gender/age. EYES: Normal conjunctiva, no exudates on lids/lashes. ENT: Nares patent, no circumoral cyanosis, no facial swelling NECK: Supple, trachea midline, painless cervical ROM. LUNGS/CHEST: Lungs CTA bilaterally, non-labored respirations, normal A/P diameter, symmetrical expansion, no chest wall deformity HEART (CV/PV): Regular rate and rhythm without murmur, no peripheral edema, no JVD. ABDOMEN: Soft, non-distended, no guarding. MSK: Normal ROM, no swelling/deformity to bilateral UEs or LEs, moving all extremities without weakness, no cyanosis, spine midline without tenderness, normal curvature. NEURO: Mental Status AAOx4 - alert to person, place, time, events No facial droop, no forehead involvement. Motor: No focal weakness - strength 5/5 in bilateral UEs and LEs, proximal and distal, symmetric. Sensory: sensation intact to light touch globally. Gait normal: patient ambulated without ataxia into ED room. PSYCH: euthymic, cooperative, pleasant, appropriate speech Course Vital Signs Vital signs: Vital Signs Temperature 36.2 C L 04/10/24 15:17 Pulse 83 04/10/24 15:17 Respiratory Rate 22 04/10/24 15:17 Blood Pressure 125/88 04/10/24 15:17 Pulse Oximetry 84 L 04/10/24 15:17 Temperature 36.2 C L 04/10/24 15:17 Temperature Source Temporal Artery Scan 04/10/24 15:17 Pulse 83 04/10/24 15:17 Respiratory Rate 22 04/10/24 15:17 Blood Pressure 125/88 04/10/24 15:17 Pulse Oximetry 84 L 04/10/24 15:17 Oxygen Delivery Method Room Air 04/10/24 15:17 Oxygen Flow Rate 0 04/10/24 15:17 Medical Decision Making This dictation utilizes [id number] dictation software and may contain unedited grammatical errors. 64 year-old female presents to ED today by POV/ambulating with her son with a chief complaint of constellation of complaints- states she noted her heart rate has been dropping to 30's then going up to 118- has confusion over if she has been diagnosed with COPD, as well as silent OK's, has frustrations with prior visits here, endorses history of PEs with onset since November- equates any respiratory complaint as an ongoing issue- states she feels she does not have a PE. Quality described as generally concerned with her heart rate, endorses some left-sided chest tightness at times, denies recent cough or severe respiratory illness, no radiation to intractable nausea or vomiting, high fever, syncope, states that she gets extremely short of breath even walking across the room, patient is still an active smoker, has nighttime O2 at home. Severity is described as severe. Palliating factors include has budesonide/formoterol and an albuterol inhaler at home. Provoking factors include nothing specific. Events leading up to the incident/Associated Symptoms: Patient states she recently had pulmonary function test, is unaware of results at this time . Patient is anticoagulated on warfarin due to history of PEs. Patients' medical history: Recent treatment for walking pneumonia, palpitations, tobacco use disorder, chronic anticoagulation, fatigue, abnormal EKG. Family and social history: Current smoker, denies illicit substance use, no recent travel. Pertinent exam findings / vital signs include poor air movement with expiratory wheezes consistent with COPD, irregular heart rate consistent with A-fib, nontoxic and afebrile, benign abdomen. Differential / pathologies of concern include COPD exacerbation, hypoxic respiratory failure, pneumonia, PE, CHF, ACS, URI. Diagnostic studies of: -CBC, CMP, PT/PTT, VBG, lactate, magnesium, serial troponins, BNP, COVID/flu/RSV PCR, EKG, CTA chest PE study. -CBC shows no leukocytosis, shows likely hemoconcentration with a hemoglobin of 16.8 -INR is 2.2 -VBG shows significantly elevated CO2 at 67 -CMP has no actionable abnormality -Magnesium within normal limits -Serial troponins negative -BNP significantly elevated at 4269 -COVID/flu/RSV negative -EKG shows atrial fibrillation with PVCs, normal axis, no mora ST changes, nonspecific T wave abnormalities -CTA shows a right lung infiltrate Interventions of: -9 mL DuoNeb, magnesium for shortness of breath, IV methylprednisolone, ceftriaxone and doxycycline IV. Patient chose to leave AMA I did send prescriptions for outpatient dual antibiotic treatment for pneumonia as well as prednisone for COPD exacerbation. ED Course/Assessment/Plan: 64-year-old female with poor health awareness of her general physical health and COPD/respiratory baseline presents with significant hypoxia requiring oxygen as well as a right lower lobe infiltrate, she is noted to be in A-fib with some evidence for tacky arrhythmia in the 130s and 140s after being given albuterol nebulizers but was spending most of her time below 115 bpm, patient is unaware of any prior diagnosis of A-fib but does have history of PE possibly due to paroxysmal atrial fibrillation though the patient states she does not feel she has a PE and was adamant about not needing a CTA at today's visit. Patient reluctantly agreed to CTA, after being admitted by the hospitalist Dr. Barrios at 1930-the patient chose to leave AMA stating that there is nothing that we could do here that she could not perform for herself at home, I attempted to automobile club travel counselor her that she may have new atrial fibrillation as well as hypoxic respiratory failure needing oxygen as well as a pneumonia needing antibiotics before being transitioned to p.o. antibiotics. The patient still was adamant that they had just finished antibiotics and prednisone so that could not possibly be something they need to be admitted for. They state that they are often 65% SpO2 on arrival at outpatient offices, she shows a poor understanding of oxygen saturation and the severity of her illness-was counseled that she would likely decompensate into a more severe respiratory failure and possibly but the patient shows to leave AMA regardless of this information, was provided with outpatient antibiotics for treatment of her pneumonia as well as prednisone for COPD exacerbation despite AMA departure. Findings not consistent with ACS, CHF due to new onset A-fib not ruled out, pneumonia likely, hypoxic respiratory failure likely, patient left AMA. Disposition of atrial fibrillation, pneumonia, acute hypoxic respiratory failure, COPD exacerbation. Patient verbalized understanding of the plan and return to ED criteria and engaged in shared decision making. Medical Records Medical records reviewed: Yes I reviewed the patient's medical records. Imaging Data Radiologic Study: Attestation: I personally reviewed and interpreted this imaging study as follows: Imaging: CT Scan Radiologist's impression: EXAM: CT CHEST PE CTA CLINICAL HISTORY: SOB, history PEs, on coumadin, hypoxia. TECHNIQUE: Imaging Protocol: CT angiography of the chest was performed using pulmonary embolus protocol. Multi planar reconstructions were performed. CONTRAST MATERIAL: Intravenous: Omnipaque 350 Contrast volume: 100 cc COMPARISON: CT CT CHEST PE CTA from 06/09/2023 FINDINGS: CHEST: PULMONARY ARTERIES: There are no intraluminal filling defects to suggest acute pulmonary emboli. LUNGS: There are mild increased markings in the subpleural right lower lobe lateral basal segment. There are no pleural effusions. MEDIASTINUM: There is no hilar nor mediastinal adenopathy. CARDIAC: Heart size is upper normal. There is no pericardial effusion.Caliber of the thoracic aorta is within normal limits. No dissection. There is no significant shift of the interventricular septum. PARTIALLY VISUALIZED UPPERMOST ABDOMEN: No adrenal masses. OSSEOUS: No significant osseous lesions.. IMPRESSION: 1. No evidence of acute pulmonary emboli. No evidence of pulmonary i nfarction.No pleural effusions. 2. There is mild infiltrate in the lateral basal segment of the right lower lobe. No pleural effusions. No infiltrates in the left lung. No significant lung nodules 3. No intrathoracic added Lab Data Lab results reviewed: Yes I reviewed the patient's lab results. Labs: Laboratory Tests Range/Units 04/10/24 04/10/24 04/10/24 15:44 15:47 16:44 WBC (4.4-10.8) 10^3/uL 6.65 RBC (3.93-5.22) 10^6/uL 5.91 H Hgb (11.2-15.7) g/dL 16.8 H Hct (36.0-46.0) % 55.7 H MCV (80-95) fL 94 MCH (27.0-33.0) pg 28.4 MCHC (32.0-36.0) % 30.2 L RDW (11.7-14.6) % 18.8 H Plt Count (130-400) 10^3/uL 202 MPV (8.0-11.0) fL 9.3 Immature Gran % % 0.6 Neutrophils % % 60.3 Lymphocytes % % 27.2 Monocytes % % 10.8 Eosinophils % % 0.8 Basophils % % 0.3 Nucleated RBC % (0.0-0.3) % 0.0 Absolute Neutrophils (1.2-6.7) 10^3/uL 4.01 Absolute Lymphocytes (1.2-3.4) 10^3/uL 1.81 Absolute Monocytes (0.1-0.8) 10^3/uL 0.72 Absolute Eosinophils (0.0-0.7) 10^3/uL 0.05 Absolute Basophils (0.0-0.2) 10^3/uL 0.02 PT (9.1-11.1) sec 20.5 H INR (0.9-1.1) 2.2 H APTT (23.6-32.8) sec 34.6 H VBG pH (7.31-7.41) 7.32 VBG pCO2 (41-51) mmHg 67 H* VBG pO2 mmHg 48 VBG HCO3 (23-28) mmol/L 34 H VBG Total CO2 (24-29) mmol/L 30 H VBG O2 Saturation % 85 VBG Base Excess (-2-3) mmol/L 8 H VBG Lactate (0.6-1.4) mmol/L 1.0 Sodium (136-145) mmol/L 143 Potassium (3.5-5.1) mmol/L 4.7 Chloride (98-107) mmol/L 105 Carbon Dioxide (21.0-32.0) mmol/L 34.9 H Anion Gap (3-11) mmol/L 3.1 BUN (7-18) mg/dL 24 H Creatinine (0.55-1.02) mg/dL 0.8 Est GFR (CKD-EPI 2020) (mL/min/1.73m2) 82.23 Glucose (74-106) mg/dL 84 Calcium (8.5-10.1) mg/dL 9.2 Magnesium (1.8-2.4) mg/dL 1.9 Total Bilirubin (0.2-1.0) mg/dL 0.36 AST (15-37) U/L 34 ALT (14-59) U/L 70 H Alkaline Phosphatase (46-116) U/L 141 H Troponin I (<or=51) ng/L 17 16 NT-Pro-B Natriuret Pep (<300) pg/mL 4269 H Total Protein (6.4-8.2) g/dL 7.9 Albumin (3.4-5.0) g/dL 2.8 L COVID-19 Source Nasopharynx SARS-CoV-2 (PCR) (Negative) Negative Influenza Type A (PCR) (Negative) Negative Influenza Type B (PCR) (Negative) Negative RSV (PCR) (Negative) Negative Quality:SDOH Health Related Social Needs: No Data to Display PFSH All Active Problems (Updated 04/10/24 @ 19:58 by ZAIDA Sandoval) Atrial fibrillation (Chronic) Pneumonia (Acute) Acute hypoxic respiratory failure (Acute) COPD exacerbation (Acute) Dental infection (Acute) Productive cough (Acute) Abnormal ECG (Acute) Palpitations (Acute) Dyspnea (Acute) Tobacco abuse disorder (Chronic) Thromboembolic disorder (Chronic) Pt states she has hx of PE's RH 07/18/23 Chronic anticoagulation (Acute) Fatigue (Acute) Sciatica of left side (Acute) Medical History Pneumonia Rhinosinusitis COPD exacerbation Acute respiratory failure with hypoxia and hypercarbia H/O deep venous thrombosis Walking pneumonia Surgical History H/O section Family History Mother , 81 Heart disease Father , 83 Heart disease Sister No problems noted. Sister No problems noted. Sister No problems noted. Brother No problems noted. Son No problems noted. Son No problems noted. Son No problems noted. Daughter No problems noted. Maternal Grandfather , 70 No problems noted. Paternal Grandfather , 77 Heart disease Maternal Grandmother , 90 No problems noted. Paternal Grandmother , 83 No problems noted. Social History Smoking/Tobacco Use Status: Unknown Tobacco: How many years used: 45 Quit status: considering quitting Second Hand Exposure: Yes Smoking risk assessment performed?: Yes Alcohol Intake: never Drug use: Never Substance use type: does not use Caregiver/Support person: No Household members: children Housing: apartment Communication Needs: None Do you need help understanding health information?: Never Pets and animals: No Sexually active: No Do you think of yourself as: straight/heterosexual Current gender identity: female What is your relationship status?: How often do you talk on the phone with friends or family?: once per week How often do you get together with friends or relatives?: decline to answer How often do you attend hinduism or worship services?: 1-3 times per year Do you belong to any clubs or organized social groups?: no Panel score (0-1 are the most socially isolated patients): 0 What type of physical activity do you participate in: none Frequency: does not exercise Ana Laura/Spiritism: No preference Special ana laura needs: No Seatbelt use: always Drive intox or ride w/intox garbage collector driver: No Do you feel safe at home: Yes Do you feel safe in your relationship?: Yes
[2024-04-10] MEDS: Albuterol/Ipratropium 3 ML UPD VIAL 9 ML UPD (15:52)
[2024-04-10] MEDS: methylPREDNISolone SUCC 125 MG VIAL IVP (15:52)
[2024-04-10] MEDS: MAGNESIUM SULFATE 1 GM/100 ML BAG IV_INF (15:52)
[2024-04-10 15:55] LABS: BE (Venous) 8 mmol/L (-2-3); HCO3 (Venous) 34 mmol/L (23-28); O2 Sat (Venous) 85 %; TCO2 (Venous) 30 mmol/L (24-29); pH (Venous) 7.32 (7.31-7.41); pO2 (Venous) 48 mmHg
[2024-04-10 15:59] LABS: pCO2 (Venous) 67 mmHg (41-51)
[2024-04-10 16:00] LABS: Abs Immature Grans 0.04 10^3/uL (0.0-0.06); Absolute Basophil Count 0.02 10^3/uL (0.0-0.2); Absolute Eosinophil Count 0.05 10^3/uL (0.0-0.7); Absolute Lymphocyte Count 1.81 10^3/uL (1.2-3.4); Absolute Monocyte Count 0.72 10^3/uL (0.1-0.8); Absolute Neutrophil Count 4.01 10^3/uL (1.2-6.7); Basophils % 0.3 %; Eosinophils % 0.8 %; HCT 55.7 % (36.0-46.0); HGB 16.8 g/dL (11.2-15.7); Immature Grans % 0.6 %; Lymphocytes % 27.2 %; MCH 28.4 pg (27.0-33.0); MCHC 30.2 % (32.0-36.0); MCV 94 fL (80-95); MPV 9.3 fL (8.0-11.0); Monocytes % 10.8 %; Neutrophils % 60.3 %; Platelet Count 202 10^3/uL (130-400); RBC 5.91 10^6/uL (3.93-5.22); RDW 18.8 % (11.7-14.6); RDW-SD 62.4 fL; WBC 6.65 10^3/uL (4.4-10.8)
[2024-04-10 16:08] LABS: INR 2.2 (0.9-1.1); PTT Activated 34.6 sec (23.6-32.8); Prothrombin Time 20.5 sec (9.1-11.1)
[2024-04-10 16:24] LABS: ALT 70 U/L (14-59); AST 34 U/L (15-37); Albumin 2.8 g/dL (3.4-5.0); Alkaline Phosphatase 141 U/L (46-116); Anion Gap 3.1 mmol/L (3-11); BUN 24 mg/dL (7-18); Bilirubin, Total 0.36 mg/dL (0.2-1.0); CO2 34.9 mmol/L (21.0-32.0); CREATININE 0.8 mg/dL (0.55-1.02); Calcium 9.2 mg/dL (8.5-10.1); Chloride 105 mmol/L (98-107); Estimated GFR 82.23 (mL/min/1.73m2); Glucose 84 mg/dL (74-106); Magnesium 1.9 mg/dL (1.8-2.4); NT-proBNP 4269 pg/mL (<300); Potassium 4.7 mmol/L (3.5-5.1); Sodium 143 mmol/L (136-145); Total Protein 7.9 g/dL (6.4-8.2); Troponin I 17 ng/L (<or=51)
[2024-04-10 16:40] LABS: COVID-19 PCR Negative (Negative); Influenza A PCR Negative (Negative); Influenza B PCR Negative (Negative); RSV PCR Negative (Negative)
[2024-04-10 16:41] LABS: Source Nasopharynx
[2024-04-10] MEDS: Omnipaque 350 MG/ML 100 ML BTL IJ (16:58)
[2024-04-10] MEDS: Normal Saline - Diluent 50 ML VIAL IJ (17:00)
[2024-04-10 17:18] LABS: Troponin I 16 ng/L (<or=51)
[2024-04-10] MEDS: cefTRIAXone 2 GM/50 ML BAG IVPB (18:47)
[2024-04-10] MEDS: DOXYCYCLINE 100 MG in Normal Saline 100 ML IVPB (18:53)
== END 2024-04-10 20:38 | disposition left against medical advice (07) ==
PROVIDERS: Emergency Provider Physician Assistant; PCP Nurse Practitioner Family
DX: J44.1 Chronic obstructive pulmonary disease with (acute) exacerbation (principal); J96.01 Acute respiratory failure with hypoxia; J18.9 Pneumonia, unspecified organism; I48.91 Unspecified atrial fibrillation; Z79.01 Long term (current) use of anticoagulants; Z53.29 Procedure and treatment not carried out because of patient's decision for other reasons
CPT/HCPCS: 71275; 80053; 82805; 87637; 93005; 94640; 96365; 96367; 96375; 99285; 83605; 83735; 83880; 84484; 85025; 85610; 85730; 93010; J0696; J2919; J3475; J3490; J7620

== ENCOUNTER 2024-04-30 01:05 | Outpatient (CLI) | payer MEDICAID, SELFPAY ==
--- NOTE | 2024-04-30 08:30 | DI.US_ITS ---
APPROVED REPORT EXAM: Comprehensive 2D, Doppler, and color-flow Echocardiogram Patient Location: Out-Patient Metal Roofer: Camilo Thomas RDCS (AE) Indications: New paroxysmal Afib Other Information Technically limited study due to body habitus. Conclusion Mild concentric left ventricular hypertrophy. Borderline dilated left ventricle. Ejection fraction is 45 to 50%. Hypokinesis. Patient is in atrial fibrillation, mildly rapid with [id number] variat ion Normal right ventricular size and function Both atria are normal in size There is no structural or hemodynamically significant valvular disease Wall motion Left Ventricle Left ventricle is mildly dilated. Left ventricular systolic function is mildly decreased. Mild concen tric left ventricular hypertrophy. There is global hypokinesis of the left ventricle. There is no kush tricular septal defect visualized. LVEF is 45-50%. Right Ventricle The right ventricle is normal size. The right ventricular systolic function is normal. Atria The left atrium size is normal. The right atrium size is normal. The interatrial septum is intact wit h no evidence for an atrial septal defect. Aortic Valve The aortic valve is normal in structure. Aortic valve is trileaflet. There is no aortic valvular sten osis. No aortic regurgitation is present. Mitral Valve The mitral valve is normal in structure. No evidence of mitral valve stenosis. Trace mitral regurgita tion. Tricuspid Valve The tricuspid valve is normal in structure. There is no tricuspid valve stenosis. Trace tricuspid reg urgitation. The RVSP is 14.5 mmHg. Pulmonic Valve The pulmonary valve is normal in structure. There is no pulmonic valvular stenosis. There is no pulmo peyton valvular regurgitation. Great Vessels The aortic root is normal in size. The ascending aorta is normal in size. Aortic arch is normal in ca liber. The IVC collapses <50% with inspiration. Pericardium There is no pericardial effusion. 2D Dimensions IVSD d PLAX 1.09 cm F: 0.6-1.0 Ao Root d 2.78 cm F: 2.7 - 3.3 LVPW d PLAX 1.14 cm F: 0.6 - 1.0 Ao Asc Diam d 2.93 cm F: 2.3 - 3.1 LVID d PLAX 5.70 cm F: 3.8 - 5.2 LVDs 4.04 cm F: 2.2 - 3.5 LV EF Teichholz 55.3 % FS 29.15 % LV EDV (Teich) 160.0 mL LV ESV (Teich) 71.6 mL Stroke Vol Index (Teich) 35.79 M-Mode TAPSE 0.91 cm (M/F) >1.7 LA Volume LA Length A4C 5.7 cm LA Length A2C LA Area A4C s 28.13 cm2 LA Area A2C s LA Vol A4C A-L 116.89 mL LA Vol A2C A-L LA Vol Biplane A-L LA Vol A4C MOD 103.4 mL LA Vol A2C MOD LA Vol BP MOD RA Volume RA Area A4C 20.4 cm2 RA ESV A4C (A-L) 68.3mL RA Vol/BSA A4C A-L RA Length A4C 5.2 cm RA ESV A4C (MOD) 66.5mL LV Diastology MV E' lateral 0.108 (>0.1 m/s) MV E Vmax 1.07 (0.4-1.3 m/s) Aortic Valve AoV Vmax 1.17 m/s LVOT Vmax 0.84 m/s AoV Peak Grad 5.5 mmHg LVOT Peak Grad 2.8 mmHg AoV Area (Vmax) 2.20 cm2 LVOT VTI 0.182 m AoV VTI 0.220 m LVOT Mean Grad 1.4 mmHg AoV Mean Hadley. 0.77 m/s LVOT SV 55.88 mL AoV Mean Grad 2.8 mmHg LVOT Diam s 1.95 cm AoV Area (VTI) 2.55 cm2 AV Regurg Peak Gr. 5.49 mmHg Velocity Ratio 0.72 Mitral Valve MV Vmax TIPS 0.92 m/s MV Mean Grad 1.6 (<2mmHg) MV VTI 0.172 m Pulmonary Valve PV Vmax 0.65 (0.5-1.5 m/s) RVOT Vmax 0.42 m/s PV Peak Grad 1.7 mmHg RVOT Peak Gr. 0.7 mmHg PV Mean Hadley 0.43 m/s RVOT VTI 0.075 m PV Mean Grad 0.9 mmHg RVOT Mean Gr. 0.4 mmHg Tricuspid Valve RA Pressure 8.00 mmHg TR Vmax 1.28 m/s TR Peak Grad 6.5 mmHg RVSP (TR) 14.5 mmHg
== END 2024-04-30 01:25 ==
LOC: DI 01:05
PROVIDERS: PCP Nurse Practitioner Family; Visit Provider Nurse Practitioner Family
DX: I48.91 Unspecified atrial fibrillation (principal)
CPT/HCPCS: 93306

== ENCOUNTER 2024-05-29 08:14 | Outpatient (CLI) | payer MEDICAID, SELFPAY | END 2024-05-29 08:15 | disposition home or self-care (01) | LOC: DI.CARD 08:15 | PROVIDERS: PCP Nurse Practitioner Family; Visit Provider Internal Medicine Cardiovascular Disease | CPT/HCPCS: 93010 ==

== ENCOUNTER 2024-06-11 08:20 | Emergency (ER) | payer MEDICAID, SELFPAY ==
[2024-06-11] VITALS (49 sets, daily range): BP systolic 92–126; BP diastolic 59–92; PULSE 65–205; RESP 3–38; TEMP 36.2; O2SAT 68–95
--- NOTE | 2024-06-11 08:15 | DI.CT_ITS ---
Exam(s) CT HEAD CERV SPINE FACIAL WO EXAM: CT HEAD CERV SPINE FACIAL WO CLINICAL HISTORY: fall, on coumadin, hit head?. TECHNIQUE: Imaging Protocol: Axial computed tomography images with coronal and sagittal reformatted images were created and reviewed COMPARISON: No exams were available for comparison FINDINGS: CT BRAIN: There are no skull fractures nor fluid in the visualized paranasal sinuses. There is no evidence of intracranial hemorrhage, mass effect, or shift of midline structures. There are no extra-axial fluid collections. The ventricles are not enlarged or shifted and there is no blo od within the ventricular system nor within the basal cisterns. CT MAXILLOFACIAL BONES: There is no evidence of facial fractures nor fluid in the visualized paranasal sinuses. there is no evidence of orbital blowout fracture. Mild mucosal thickening noted in the left maxillary sinus, wit hout fluid level therein. Other paranasal sinuses are clear. There are periapical lucencies around multiple upper teeth. There is also fracture of the left front upper tooth, age indeterminate. There is no evidence of fracture of the mandible. CT CERVICAL SPINE: There is no evidence of fracture nor listhesis. No significant prevertebral soft tissue swelling. N o facet malalignment evident. There is calcification in the supraspinous ligament posteriorly behind the spinous process of C5. No significant osseous lesions evident. IMPRESSION: No acute intracranial findings on this noninfused CT scan of the brain. No evidence of facial nor orbital blowout fractures.Upper teeth findings as above. Correlation with acute clinical findings recommended. No evidence of cervical spine fracture, malalignment, nor acute compromise of the cervical spinal can al. Independent calcifications posteriorly behind the C5 spinous process are noted but these do not appear to have originated from the spinous process itself. Report called by myself to ER provider 06/11/2024 10:18 am. RADIATION DOSE DELIVERED: 1,998.64mGy.cm Total DLP DATA REPOSITORY: All CT scans at this facility are submitted to the National Radiology Data Registry (NRDR) Dose Index Registry (DIR) with the [employer] (A[employer]). RADIATION OPTIMIZATION: All CT scans at this facility use at least one of these dose optimization te chniques: automated exposure control; mA and/or kV adjustment per patient size (includes targeted exa ms where dose is matched to clinical indication); or iterative reconstruction.
--- NOTE | 2024-06-11 08:15 | DI.CT_ITS ---
Exam(s) CT CHEST/ABD/PEL WO EXAM: CT CHEST/ABD/PEL WO CLINICAL HISTORY: fall, SOB, cough, generalized abdominal pain bloat. TECHNIQUE: Imaging Protocol: Axial computed tomography images with coronal and sagittal reformatted images were created and reviewed CONTRAST MATERIAL: Intravenous: none Oral: None COMPARISON: CT CT CHEST PE CTA from 04/10/2024 FINDINGS: CHEST: LUNGS: There is a small-moderate size right pleural effusion and mild increased markings in the right lower lobe basal segments. No obvious rib fractures evident. There is no pleural effusion on the o pposite-left side. No significant focal left lung findings. Mild atelectasis in the lingular segmen t noted. There are no significant focal findings in the trachea and mainstem bronchi. MEDIASTINUM: No evidence of sternal fracture nor mediastinal hematoma. No hilar nor mediastinal barby opathy. CARDIAC: Cardiomegaly noted. No pericardial effusion.Caliber of the thoracic aorta is within normal limits. OSSEOUS: No fractures evident.No osseous lesions.. ABDOMEN: There is symmetrical anasarca. There is some perihepatic and perisplenic ascites evident. Also some ascites in the dependent aspect of the pelvis. LIVER: No obvious hepatic laceration evident on this noninfused study. No obvious focal hepatic lesi ons evident on this noninfused study. GALLBLADDER/BILIARY: No obvious gallbladder pathology. CBD is not dilated. PANCREAS: No evidence of obvious pancreatic mass nor dilatation of the pancreatic duct. SPLEEN: There is perisplenic ascites. Spleen size normal. No obvious laceration in the spleen. ADRENALS: There are no significant adrenal masses. KIDNEYS: No calculi nor hydronephrosis. No obvious solid renal masses. No obvious laceration or subca psular hematomas. ABDOMINAL AORTA: Abdominal aorta is not enlarged. LYMPH NODES: There is no retroperitoneal nor para-aortic adenopathy. ABDOMINAL WALL/GI: Symmetrical anasarca over the abdomen and pelvis. No drainable subcutaneous fluid collection. No evidence of bowel obstruction. No evidence of mesenteric nor bowel wall hematoma. PELVIS: LYMPH NODES: There is no intrapelvic nor inguinal adenopathy. GI: No evidence of appendicitis.No evidence of sigmoid diverticulitis. URINARY BLADDER: No calculi nor obvious masses evident REPRODUCTIVE: Age appropriate OSSEOUS: No fractures. No significant osseous lesions. IMPRESSION: 1. There is anasarca, a small right pleural effusion, and ascites in the abdomen and pelvis. 2. Mild infiltrate noted in the right lower lobe 3. No obvious acute trauma findings in the abdomen pelvis on this noninfused study. Report called by myself to ER physician 06/11/2024 at 10:34 a.m. RADIATION DOSE DELIVERED: 1,690.93mGy.cm Total DLP DATA REPOSITORY: All CT scans at this facility are submitted to the National Radiology Data Registry (NRDR) Dose Index Registry (DIR) with the [employer] (ACR). RADIATION OPTIMIZATION: All CT scans at this facility use at least one of these dose optimization te chniques: automated exposure control; mA and/or kV adjustment per patient size (includes targeted exa ms where dose is matched to clinical indication); or iterative reconstruction.
--- NOTE | 2024-06-11 08:15 | RT.EKG_ITS ---
APPROVED REPORT Exam: Resting ECG Reason for Exam: afib Patient Location: E HR:113 bpm ECG Measurements Heart Rate 113 AXIS [place] [id number] P [id number] QRSd 90 QRS 100 QT 310 T 60 QTc 426 Conclusion Atrial fibrillation...? atrial activity Right axis deviation...QRS axis ( 91,269) Low voltage, precordial leads...precordial leads <1.0mV I have reviewed and interpreted ECG and agree with software generated interpretation.
[2024-06-11 08:56] LABS: BE (Venous) 9 mmol/L (-2-3); HCO3 (Venous) 36 mmol/L (23-28); Lactate 1.4 mmol/L (0.6-1.4); O2 Sat (Venous) 61 %; TCO2 (Venous) 33 mmol/L (24-29); pH (Venous) 7.26 (7.31-7.41); pO2 (Venous) 34 mmHg
[2024-06-11 08:58] LABS: Abs Immature Grans 0.07 10^3/uL (0.0-0.06); Absolute Basophil Count 0.04 10^3/uL (0.0-0.2); Absolute Eosinophil Count 0.04 10^3/uL (0.0-0.7); Absolute Monocyte Count 0.69 10^3/uL (0.1-0.8); Absolute Neutrophil Count 4.61 10^3/uL (1.2-6.7); Basophils % 0.6 %; Eosinophils % 0.6 %; HCT 52.4 % (36.0-46.0); HGB 15.3 g/dL (11.2-15.7); Immature Grans % 1.1 %; MCH 28.6 pg (27.0-33.0); MCHC 29.2 % (32.0-36.0); MCV 98 fL (80-95); MPV 10.1 fL (8.0-11.0); Monocytes % 10.4 %; Neutrophils % 69.3 %; Nucleated RBC 0.3 % (0.0-0.3); Platelet Count 206 10^3/uL (130-400); RBC 5.35 10^6/uL (3.93-5.22); RDW 18.2 % (11.7-14.6); RDW-SD 65.7 fL; WBC 6.65 10^3/uL (4.4-10.8)
[2024-06-11 08:59] LABS: pCO2 (Venous) 79 mmHg (41-51)
[2024-06-11 09:11] LABS: PTT Activated 37.8 sec (23.6-32.8)
[2024-06-11 09:12] LABS: INR 2.9 (0.9-1.1)
[2024-06-11 09:30] LABS: ALT 40 U/L (14-59); AST 33 U/L (15-37); Alkaline Phosphatase 188 U/L (46-116); Anion Gap 3.8 mmol/L (3-11); BUN 49 mg/dL (7-18); Bilirubin, Total 0.77 mg/dL (0.2-1.0); CO2 35.2 mmol/L (21.0-32.0); CREATININE 1.2 mg/dL (0.55-1.02); Chloride 103 mmol/L (98-107); Estimated GFR 50.55 (mL/min/1.73m2); Glucose 99 mg/dL (74-106); Lipase 132 U/L (<78); NT-proBNP 6265 pg/mL (<300); Sodium 142 mmol/L (136-145); TSH (W/Ref FT4) 6.33 uIU/mL (0.36-3.74); Total Protein 7.6 g/dL (6.4-8.2); Troponin I 26 ng/L (<or=51)
[2024-06-11 09:34] LABS: Calcium 8.9 mg/dL (8.5-10.1)
[2024-06-11 09:35] LABS: Potassium 6.3 mmol/L (3.5-5.1)
[2024-06-11] MEDS: Albuterol/Ipratropium 3 ML UPD VIAL UPD (09:44)
[2024-06-11] MEDS: Furosemide 20 MG/2 ML VIAL IVP (09:45)
[2024-06-11 09:51] LABS: FREE T4 1.02 ng/dL (0.76-1.46)
[2024-06-11 10:01] LABS: Procalcitonin < 0.10 ng/mL
[2024-06-11] MEDS: Albuterol/Ipratropium 3 ML UPD VIAL 6 ML UPD (10:05)
--- NOTE | 2024-06-11 10:06 | DI.RAD_ITS ---
Exam(s) XR KNEE LT 3V AP,LAT,RADHA EXAM: XR KNEE LT 3V AP,LAT,RADHA CLINICAL HISTORY: fall, hit left knee/pain, swelling eval fx/gas. TECHNIQUE: 2D digital imaging was performed. COMPARISON: No exams were available for comparison FINDINGS: 3 views No evidence of acute fracture nor prominent joint effusion. However, there appear to be some loose i ntra-articular bodies in the posterior medial joint space of the knee. No radiopaque foreign bodies. No significant osseous lesions. IMPRESSION: No obvious acute fracture but loose intra-articular bodies noted as described above. DATA REPOSITORY: RADIATION DOSE DELIVERED:
[2024-06-11] MEDS: Dextrose 50%-Water 25 GM/50 ML SYR IVP (10:07)
[2024-06-11] MEDS: Calcium Gluconate 4.65 MEQ/10 ML VIAL 4.65 MG IVP (10:07)
[2024-06-11] MEDS: Insulin REGULAR-Human 100 UNITS/ML UNIT 10 UNITS IV (10:07)
--- NOTE | 2024-06-11 10:07 | DI.RAD_ITS ---
Exam(s) XR TIB/FIB LT EXAM: XR TIB/FIB LT CLINICAL HISTORY: fall, hit left knee/pain, swelling eval fx/gas. TECHNIQUE: 2D digital imaging was performed. COMPARISON: No exams were available for comparison FINDINGS: Two views Diffuse soft tissue swelling in the calf is noted. However, no evidence fracture of the tibia and fi bula. No osseous lesions. No radiopaque foreign bodies. IMPRESSION: No fractures evident in the tibia and fibula. Soft tissue edema is noted throughout the calf. DATA REPOSITORY: RADIATION DOSE DELIVERED:
--- NOTE | 2024-06-11 10:12 | ED.GENADUL_ITS ---
Discharge Plan Disposition Patient Disposition: Transfer-Acute Inpatient Care Specific Acute Inpt Facility: [facility] Condition: Serious Discharge Details Clinical Impression: Acute hyperkalemia, Acute hypercapnic respiratory failure, UTI (urinary tract infection), Sepsis, Cellulitis of left leg Primary Care Provider: Ivan Rodriguez ED Provider: Gerard Robb Home Meds and New Rx's Prescriptions: No Action warfarin 2.5 mg tablet 2.5 mg PO DAILY Qty: 90 3RF Protocol: Dose Management Condition: Tuesday Dose/Route: 7.5 mg Instruction: 1 x 2.5 mg tablet, 1 x 5 mg tablet Condition: Tuesday Dose/Route: 7.5 mg Instruction: 1 x 2.5 mg tablet, 1 x 5 mg tablet Condition: Tuesday Dose/Route: 7.5 mg Instruction: 1 x 2.5 mg tablet, 1 x 5 mg tablet Condition: Tuesday Dose/Route: 7.5 mg Instruction: 1 x 2.5 mg tablet, 1 x 5 mg tablet Condition: Dose/Route: 7.5 mg Instruction: 1 x 2.5 mg tablet, 1 x 5 mg tablet Condition: Tuesday Dose/Route: 7.5 mg Instruction: 1 x 2.5 mg tablet, 1 x 5 mg tablet Condition: Tuesday Dose/Route: 7.5 mg Instruction: 1 x 2.5 mg tablet, 1 x 5 mg tablet Protocol Text: Adjustment Start Date: Tuesday06/11/24 INR Value: 2.9 INR Date: 06/11/24 Recheck Date: 06/18/24 Rx Instructions: as directed albuterol sulfate 2.5 mg /3 mL (0.083 %) solution for nebulization 2.5 mg inhalation Q4H PRN (Reason: shortness of breath or wheezing) Qty: 180 0RF budesonide-formoterol [Symbicort] 160-4.5 mcg/actuation HFA aerosol inhaler 2 puff inhalation Q12H Qty: 10.2 0RF levalbuterol tartrate 45 mcg/actuation HFA aerosol inhaler 2 inh inhalation Q6H Qty: 15 6RF warfarin 5 mg tablet 5 mg PO DAILY Qty: 90 3RF Protocol: Dose Management Condition: Tuesday Dose/Route: 7.5 mg Instruction: 1 x 2.5 mg tablet, 1 x 5 mg tablet Condition: Tuesday Dose/Route: 7.5 mg Instruction: 1 x 2.5 mg tablet, 1 x 5 mg tablet Condition: Tuesday Dose/Route: 7.5 mg Instruction: 1 x 2.5 mg tablet, 1 x 5 mg tablet Condition: Tuesday Dose/Route: 7.5 mg Instruction: 1 x 2.5 mg tablet, 1 x 5 mg tablet Condition: Dose/Route: 7.5 mg Instruction: 1 x 2.5 mg tablet, 1 x 5 mg tablet Condition: Tuesday Dose/Route: 7.5 mg Instruction: 1 x 2.5 mg tablet, 1 x 5 mg tablet Condition: Tuesday Dose/Route: 7.5 mg Instruction: 1 x 2.5 mg tablet, 1 x 5 mg tablet Protocol Text: Adjustment Start Date: Tuesday06/11/24 INR Value: 2.9 INR Date: 06/11/24 Recheck Date: 06/18/24 albuterol sulfate 90 mcg/actuation HFA aerosol inhaler 2 puff inhalation Q6H PRN (Reason: shortness of breath or wheezing) Qty: 6.7 0RF Discharge Data Discharge Date/Time-TO BE ENTERED AT DEPARTURE: 06/11/24 13:10 HPI General Date/Time Provider Initiated Documentation: 06/11/24 08:28 . HPI Narrative: This is a 64-year-old female with a past medical history of COPD, chronically on 1 to 2 L of oxygen, congestive heart failure and pitting edema, atrial fibrillation on Coumadin, who presents today for evaluation of shortness of breath and weakness. Per patient and EMS she has been on her chronic 2 L of oxygen but has felt notably short of breath and weak despite this over the last 3 to 4 days. They have had multiple lift assist to help get her up. She admits to swelling and drainage in her left leg. She admits to a chronic continued cough. She denies fever or chills. She admits to swelling in her abdomen and some mild difficulty breathing. She denies any chest pain or chest discomfort. She denies hitting her head when she fell, but she also states she does not com pletely recall the episode. She denies any other complaints at this time. She states that she is full code. No other modifying factors. She does admit to mild pain in her left lower leg and knee but this existed prior to the fall. Related Data Home Medications ?Medication ?Instructions ?Recorded ?Confirmed albuterol sulfate 90 mcg/actuation 2 puff inhalation Q6H PRN 06/12/22 06/11/24 aerosol inhaler shortness of breath or wheezing #6.7 grams warfarin 5 mg tablet 5 mg PO DAILY #90 tabs 09/13/23 06/11/24 warfarin 2.5 mg tablet 2.5 mg PO DAILY #90 tabs 10/10/23 06/11/24 albuterol sulfate 2.5 mg/3 mL 2.5 mg (3 mL) inhalation Q4H PRN 05/14/24 06/11/24 (0.083 %) solution for nebulization shortness of breath or wheezing #180 mL budesonide-formoterol HFA 160 2 puff inhalation Q12H #10.2 grams 05/14/24 06/11/24 mcg-4.5 mcg/actuation aerosol inhaler (Symbicort) levalbuterol tartrate 45 2 inh inhalation Q6H #15 grams 06/04/24 06/11/24 mcg/actuation aerosol inhaler Previous Rx's ?Medication ?Instructions ?Recorded albuterol sulfate 90 mcg/actuation 2 puff inhalation Q6H PRN 06/12/22 aerosol inhaler shortness of breath or wheezing #6.7 grams warfarin 5 mg tablet 5 mg PO DAILY #90 tabs 09/13/23 warfarin 2.5 mg tablet 2.5 mg PO DAILY #90 tabs 10/10/23 albuterol sulfate 2.5 mg/3 mL 2.5 mg (3 mL) inhalation Q4H PRN 05/14/24 (0.083 %) solution for nebulization shortness of breath or wheezing #180 mL budesonide-formoterol HFA 160 2 puff inhalation Q12H #10.2 grams 05/14/24 mcg-4.5 mcg/actuation aerosol inhaler (Symbicort) levalbuterol tartrate 45 2 inh inhalation Q6H #15 grams 06/04/24 mcg/actuation aerosol inhaler Allergies Allergy/AdvReac Type Severity Reaction Status Date / Time Sulfa (Sulfonamide Allergy Hives Verified 06/11/24 08:32 Antibiotics) General Stated Complaint: Fall/Non TraumaCriteria SARAH: 2 Exam Narrative Exam Narrative: 1.Const: Well-nourished, Well-developed, appearing stated age 2.Eyes: PERRL, no conjunctival injection, and symmetrical lids. 3.ENT: Atraumatic external nose and ears. Moist MM. Neck: Symmetric, trachea midline, No thyromegaly. 4.CVS: +S1/S2, Peripheral pulses 2+ and equal in all extremities. Brisk capillary refill in all extremities. 5.RESP: Tachypnea with rhonchorous breath sounds throughout. No focal wheezes 6.GI: Soft, Nontender/Nondistended, No hepatosplenomegaly. No guarding or rebound. Anasarca is noted over the lower anterior abdominal wall. No focal tenderness. 7.MSK: Right lower extremity demonstrates +2 pitting edema. Left lower extremity demonstrates +2 to +3 pitting edema. Notable staining from chronic venous stasis, but also erythema throughout the left lower extremity. Crusting and mild discharge is noted throughout without any focal ulcer. 8.Skin: Please see musculoskeletal 9.Neuro: chronic manager II-XII grossly intact. Sensation grossly intact, no focal neurologic deficits. 10.Psych: (AAO) x3. Appropriate mood and affect Course Vital Signs Vital signs: Vital Signs Pulse 148 H 06/11/24 08:24 Respiratory Rate 36 H 06/11/24 08:24 Blood Pressure 104/69 06/11/24 08:24 Pulse Oximetry 90 L 06/11/24 08:24 Temperature 36.2 C L 06/11/24 08:39 Temperature Source Tympanic 06/11/24 08:39 Pulse 119 H 06/11/24 10:05 Pulse 127 H 06/11/24 09:01 Respiratory Rate 32 H 06/11/24 10:05 Blood Pressure 107/61 06/11/24 09:00 Blood Pressure Mean 76 06/11/24 09:00 Blood Pressure Position Sitting 06/11/24 08:24 Pulse Oximetry 91 L 06/11/24 10:05 Oxygen Delivery Method Room Air 06/11/24 10:05 Oxygen Flow Rate 0 06/11/24 10:05 Fraction of Inspired Oxygen (FIO2) 32 06/11/24 09:44 Pain Level 8 06/11/24 08:24 Lab/Test Results Lab/Test Results: 06/11/24 09:20 Blood Blood Culture - Pending 06/11/24 08:29 Blood Blood Culture - Pending Laboratory Tests Range/Units 06/11/24 08:49 WBC (4.4-10.8) 10^3/uL 6.65 RBC (3.93-5.22) 10^6/uL 5.35 H Hgb (11.2-15.7) g/dL 15.3 Hct (36.0-46.0) % 52.4 H MCV (80-95) fL 98 H MCH (27.0-33.0) pg 28.6 MCHC (32.0-36.0) % 29.2 L RDW (11.7-14.6) % 18.2 H Plt Count (130-400) 10^3/uL 206 MPV (8.0-11.0) fL 10.1 Immature Gran % % 1.1 Neutrophils % % 69.3 Lymphocytes % % 18.0 Monocytes % % 10.4 Eosinophils % % 0.6 Basophils % % 0.6 Nucleated RBC % (0.0-0.3) % 0.3 Absolute Neutrophils (1.2-6.7) 10^3/uL 4.61 Absolute Lymphocytes (1.2-3.4) 10^3/uL 1.20 Absolute Monocytes (0.1-0.8) 10^3/uL 0.69 Absolute Eosinophils (0.0-0.7) 10^3/uL 0.04 Absolute Basophils (0.0-0.2) 10^3/uL 0.04 PT (9.1-11.1) sec 27.0 H INR (0.9-1.1) 2.9 H APTT (23.6-32.8) sec 37.8 H VBG pH (7.31-7.41) 7.26 L VBG pCO2 (41-51) mmHg 79 H* VBG pO2 mmHg 34 VBG HCO3 (23-28) mmol/L 36 H VBG Total CO2 (24-29) mmol/L 33 H VBG O2 Saturation % 61 VBG Base Excess (-2-3) mmol/L 9 H VBG Lactate (0.6-1.4) mmol/L 1.4 Sodium (136-145) mmol/L 142 Potassium (3.5-5.1) mmol/L 6.3 H* Chloride (98-107) mmol/L 103 Carbon Dioxide (21.0-32.0) mmol/L 35.2 H Anion Gap (3-11) mmol/L 3.8 BUN (7-18) mg/dL 49 H Creatinine (0.55-1.02) mg/dL 1.2 H Est GFR (CKD-EPI 2020) (mL/min/1.73m2) 50.55 Glucose (74-106) mg/dL 99 Calcium (8.5-10.1) mg/dL 8.9 Total Bilirubin (0.2-1.0) mg/dL 0.77 AST (15-37) U/L 33 ALT (14-59) U/L 40 Alkaline Phosphatase (46-116) U/L 188 H Troponin I (<or=51) ng/L 26 NT-Pro-B Natriuret Pep (<300) pg/mL 6265 H Total Protein (6.4-8.2) g/dL 7.6 Albumin (3.4-5.0) g/dL 3.0 L Lipase (<78) U/L 132 H Procalcitonin ng/mL < 0.10 TSH (0.36-3.74) uIU/mL 6.33 H Free T4 (0.76-1.46) ng/dL 1.02 Medical Decision Making This is a 64-year-old female with a past medical history of COPD, chronically on 1 to 2 L of oxygen, congestive heart failure and pitting edema, atrial fibrillation on Coumadin, who presents today for evaluation of shortness of breath and weakness. Per patient and EMS she has been on her chronic 2 L of oxygen but has felt notably short of breath and weak despite this over the last 3 to 4 days. They have had multiple lift assist to help get her up. She admits to swelling and drainage in her left leg. She admits to a chronic continued cough. She denies fever or chills. She admits to swelling in her abdomen and some mild difficulty breathing. She denies any chest pain or chest discomfort. She denies hitting her head when she fell, but she also states she does not completely recall the episode. She denies any other complaints at this time. She states that she is full code. No other modifying factors. She does admit to mild pain in her left lower leg and knee but this existed prior to the fall. Exam demonstrates rhonchorous breath sounds, anasarca on palpation of the anterior abdominal wall. Additionally the patient has notable edema of the left lower extremity with erythema and discharge. She is hypoxic in the mid 80s on her baseline 2 L. Differential includes CHF exacerbation, less likely COPD. Potential pneumonia. UTI is on the differential. Cellulitis and sepsis is certainly a concern. With her tachycardia and concerning leg findings, and notably concern for sepsis and an infectious source. We will evaluate for these etiologies, monitor closely and reassess. We will get CT imaging of the head neck chest abdomen and pelvis secondary to the fall and her symptoms. 9:45 AM Laboratory workup demonstrates evidence of hyperkalemia with potassium of 6.3, no white count or bandemia. Hemoglobin stable. VBG demonstrates respiratory acidosis with an elevated pCO2 of 79, pH of 7.26, creatinine slightly worse than normal at 1.2, with a baseline of 0.8. An elevated proBNP of 6200, stable troponins. And urinalysis showing moderate leuk esterase with greater than 50 WBCs concerning for UTI. COVID flu and RSV are negative. Concern for more of a COPD component than I initially anticipated given the exam findings. We did give 20 of Lasix for the evidence of peripheral edema. With the potassium we will give 3 nebulizer treatments, which will also cover the COPD component. Will give Solu-Medrol, an amp of D50, calcium gluconate, and 10 units of IV insulin. Will continue to monitor closely. Patient will benefit from admission. CT imaging shows no evidence of acute process in the head neck brain chest abdomen or pelvis. There is evidence of questionable atelectasis versus pneumonia. With the cellulitis UTI and questionable pneumonia we will give vancomycin Doxy and Zosyn. Will start the patient on BiPAP. INR therapeutic. Likelihood for DVT notably low. X-rays show no evidence of subcutaneous gas or crepitus 12:44 PM Patient's repeat ABG now demonstrates evidence of pH of 7.21, pCO2 of 94. BiPAP settings will be readjusted to 18/5. Oxygenation remained stable at 35% FiO2. Repeat assessment at this time demonstrates stable mental status. Patient is able to answer all questions, she demonstrates no signs of confusion. No obtundation or altered mental status. While the patient certainly does have a concerning respiratory status still requiring continued BiPAP she does not show any evidence of hypercarbic encephalopathy or altered mental status or obtu ndation necessitating or requiring intubation at this stage. We did contact [facility] and discussed the case with them. They agree with the need for transfer. They have accepted the patient. Patient is being transferred at this time. Case was discussed with Dr. Gross and Dr. Decker. They agree with transfer. Patient will be admitted under Dr. Rhodes. I have extensively reviewed the treatment plan with the patient. I have addressed all patient concerns at this time. I have also discussed the plan with the admitting physician and they agree with the current assessment and plan and have agreed to assume responsibility for the patient. All parties demonstrate verbal understanding and agreement with our assessment and plan at this time. The documentation in this chart was dictated using [employer] dictation software. Please excuse any dictation errors. Additionally glucose was noted to be 68. She had received the amp of D50. Will give her some orange juice to drink, but will avoid significant food secondary to the continued BiPAP use. At time of transfer the patient was reassessed and continued to demonstrate no signs of rapidly declining mental status. INDINGS: 3 views No evidence of acute fracture nor prominent joint effusion. However, there appear to be some loose intra-articular bodies in the posterior medial joint space of the knee. No radiopaque foreign bodies. No significant osseous lesions. IMPRESSION: No obvious acute fracture but loose intra-articular bodies noted as described above. FINDINGS: Two views Diffuse soft tissue swelling in the calf is noted. However, no evidence fracture of the tibia and fibula. No osseous lesions. No radiopaque foreign bodies. IMPRESSION: No fractures evident in the tibia and fibula. Soft tissue edema is noted throughout the calf. FINDINGS: CHEST: LUNGS: There is a small-moderate size right pleural effusion and mild increased markings in the right lower lobe basal segments. No obvious rib fractures evident. There is no pleural effusion on the opposite-left side. No significant focal left lung findings. Mild atelectasis in the lingular segment noted. There are no significant focal findings in the trachea and mainstem bronchi. MEDIASTINUM: No evidence of sternal fracture nor mediastinal hematoma. No hilar nor mediastinal adenopathy. CARDIAC: Cardiomegaly noted. No pericardial effusion.Caliber of the thoracic aorta is within normal limits. OSSEOUS: No fractures evident.No osseous lesions.. ABDOMEN: There is symmetrical anasarca. There is some perihepatic and perisplenic ascites evident. Also some ascites in the dependent aspect of the pelvis. LIVER: No obvious hepatic laceration evident on this noninfused study. No obvious focal hepatic lesions evident on this noninfused study. GALLBLADDER/BILIARY: No obvious gallbladder pathology. CBD is not dilated. PANCREAS: No evidence of obvious pancreatic mass nor dilatation of the pancreatic duct. SPLEEN: There is perisplenic ascites. Spleen size normal. No obvious laceration in the spleen. ADRENALS: There are no significant adrenal masses. KIDNEYS: No calculi nor hydronephrosis. No obvious solid renal masses. No obvious laceration or subcapsular hematomas. ABDOMINAL AORTA: Abdominal aorta is not enlarged. LYMPH NODES: There is no retroperitoneal nor para-aortic adenopathy. ABDOMINAL WALL/GI: Symmetrical anasarca over the abdomen and pelvis. No drainable subcutaneous fluid collection. No evidence of bowel obstruction. No evidence of mesenteric nor bowel wall hematoma. PELVIS: LYMPH NODES: There is no intrapelvic nor inguinal adenopathy. GI: No evidence of appendicitis.No evidence of sigmoid diverticulitis. URINARY BLADDER: No calculi nor obvious masses evident REPRODUCTIVE: Age appropriate OSSEOUS: No fractures. No significant osseous lesions. IMPRESSION: 1. There is anasarca, a small right pleural effusion, and ascites in the abdomen and pelvis. 2. Mild infiltrate noted in the right lower lobe 3. No obvious acute trauma findings in the abdomen pelvis on this noninfused study. FINDINGS: CT BRAIN: There are no skull fractures nor fluid in the visualized paranasal sinuses. There is no evidence of intracranial hemorrhage, mass effect, or shift of midline structures. There are no extra-axial fluid collections. The ventricles are not enlarged or shifted and there is no blood within the ventricular system nor within the basal cisterns. CT MAXILLOFACIAL BONES: There is no evidence of facial fractures nor fluid in the visualized paranasal sinuses. there is no evidence of orbital blowout fracture. Mild mucosal thickening noted in the left maxillary sinus, without fluid level therein. Other paranasal sinuses are clear. There are periapical lucencies around multiple upper teeth. There is also fracture of the left front upper tooth, age indeterminate. There is no evidence of fracture of the mandible. CT CERVICAL SPINE: There is no evidence of fracture nor listhesis. No significant prevertebral soft tissue swelling. No facet malalignment evident. There is calcification in the supraspinous ligament posteriorly behind the spinous process of C5. No significant osseous lesions evident. IMPRESSION: No acute intracranial findings on this noninfused CT scan of the brain. No evidence of facial nor orbital blowout fractures.Upper teeth findings as above. Correlation with acute clinical findings recommended. No evidence of cervical spine fracture, malalignment, nor acute compromise of the cervical spinal canal. Independent calcifications posteriorly behind the C5 spinous process are noted but these do not appear to have originated from the spinous process itself. Quality:SDOH Health Related Social Needs: Health related social needs housing instability, house d, with risk of homelessness(Z59.811), problem related to primary support group(Z63.9) Critical Care Time Critical Care Time Critical Care Time: Yes Total Critical Care Time: 110 Attestation: Upon my evaluation, this patient had a high probability of imminent or life- threatening deterioration, which required my direct attention, intervention, and personal management. I have personally provided 110 minutes of critical care time exclusive of time spent on separately billable procedures. Time includes review of laboratory data, radiology results, discussion with consultants, and monitoring for potential decompensation. Interventions were performed as documented. PFSH All Active Problems (Updated 06/11/24 @ 12:49 by Gerard Robb DO) Cellulitis of left leg (Acute) Sepsis (Acute) UTI (urinary tract infection) (Acute) Acute hypercapnic respiratory failure (Acute) Acute hyperkalemia (Acute) Asthma-COPD overlap syndrome (Acute) Chronic respiratory failure (Acute) COPD (chronic obstructive pulmonary disease) (Chronic) PFTs suggest COPD-asthma overlap Tobacco abuse disorder (Chronic) Thromboembolic disorder (Chronic) Pt states she has hx of PE's RH 07/18/23 Chronic anticoagulation (Acute) Fatigue (Acute) Sciatica of left side (Acute) Medical History Dental infection Productive cough Abnormal ECG Palpitations Dyspnea Pneumonia Rhinosinusitis COPD exacerbation Acute respiratory failure with hypoxia and hypercarbia H/O deep venous thrombosis Walking pneumonia Surgical History H/O section Family History Mother , 81 Heart disease Father , 83 Heart disease Sister No problems noted. Sister No problems noted. Sister No problems noted. Brother No problems noted. Son No problems noted. Son No problems noted. Son No problems noted. Daughter No problems noted. Maternal Grandfather , 70 No problems noted. Paternal Grandfather , 77 Heart disease Maternal Grandmother , 90 No problems noted. Paternal Grandmother , 83 No problems noted. Social History Smoking/Tobacco Use Status: Current every day Tobacco Type: cigarettes Tobacco: How many years used: 45 Quit status: considering quitting Second Hand Exposure: Yes Smoking risk assessment performed?: Yes Alcohol Intake: never Drug use: Never Substance use type: does not use Caregiver/Support person: No Household members: children Housing: apartment Communication Needs: None Do you need help understanding health information?: Never Pets and animals: No Sexually active: No Do you think of yourself as: straight/heterosexual Current gender identity: female What is your relationship status?: How often do you talk on the phone with friends or family?: once per week How often do you get together with friends or relatives?: decline to answer How often do you attend nondenominational or uatsdin services?: 1-3 times per year Do you belong to any clubs or organized social groups?: no Panel score (0-1 are the most socially isolated patients): 0 What type of physical activity do you participate in: none Frequency: does not exercise Ana Laura/Voodoo: No preference Special ana laura needs: No Seatbelt use: always Drive intox or ride w/intox lumber driver: No Do you feel safe at home: Yes Do you feel safe in your relationship?: Yes
[2024-06-11 10:39] LABS: BE 7 mmol/L (-2-3); HCO3 34 mmol/L (22-26); pH 7.21 (7.35-7.45); pO2 64 mmHg (80-105); sO2 89 % (95-98); tCO2 32 mmol/L (23-27)
[2024-06-11 10:46] LABS: Troponin I 18 ng/L (<or=51)
[2024-06-11 10:48] LABS: FIO2 32 %; Site Left Radial; pCO2 86 mmHg (35-45)
[2024-06-11 10:58] LABS: Bilirubin Negative (Negative); Blood Moderate (Negative); Clarity Cloudy (Clear); Glucose Negative (Negative); Ketones Negative (Negative); Leukocyte Esterase Moderate (Negative); Nitrite Negative (Negative); Urobilinogen 0.2 mg/dL (Up to 0.2)
[2024-06-11 11:09] LABS: WBC >50 HPF (0-5)
[2024-06-11] MEDS: PIPERACILLIN/TAZO 3.375 GM in Normal Saline 50 ML IVPB (11:18)
[2024-06-11] MEDS: methylPREDNISolone SUCC 125 MG VIAL IVP (11:21)
[2024-06-11 11:32] LABS: Troponin I 21 ng/L (<or=51)
[2024-06-11] MEDS: VANCOMYCIN/WATER (PEG) 1 GM/200 ML BAG IVPB ×2 (11:46→12:55)
[2024-06-11] MEDS: DOXYCYCLINE 100 MG in Normal Saline 100 ML IVPB (12:03)
[2024-06-11 12:04] LABS: Anion Gap 1.4 mmol/L (3-11); BUN 50 mg/dL (7-18); CO2 37.6 mmol/L (21.0-32.0); CREATININE 1.2 mg/dL (0.55-1.02); Calcium 8.6 mg/dL (8.5-10.1); Chloride 105 mmol/L (98-107); Estimated GFR 50.55 (mL/min/1.73m2); Glucose 68 mg/dL (74-106); Sodium 144 mmol/L (136-145)
[2024-06-11 12:21] LABS: COVID-19 PCR Negative (Negative); Influenza A PCR Negative (Negative); Influenza B PCR Negative (Negative); RSV PCR Negative (Negative)
[2024-06-11 12:22] LABS: Source Nasopharynx
[2024-06-11 12:28] LABS: BE (Venous) 9 mmol/L (-2-3); HCO3 (Venous) 37 mmol/L (23-28); O2 Sat (Venous) 45 %; TCO2 (Venous) 35 mmol/L (24-29); pH (Venous) 7.21 (7.31-7.41); pO2 (Venous) 27 mmHg
[2024-06-11 12:29] LABS: pCO2 (Venous) 94 mmHg (41-51)
[2024-06-15 12:41] LABS: C & S Indicated? Yes
== END 2024-06-11 13:10 | disposition short-term general hospital (02) ==
PROVIDERS: Emergency Provider Student in an Organized Health Care Education/Training Program; PCP Nurse Practitioner Family
DX: J96.02 Acute respiratory failure with hypercapnia (principal); N39.0 Urinary tract infection, site not specified; E87.5 Hyperkalemia; L03.116 Cellulitis of left lower limb; A41.9 Sepsis, unspecified organism; J44.9 Chronic obstructive pulmonary disease, unspecified; I48.91 Unspecified atrial fibrillation; I50.9 Heart failure, unspecified; Z86.718 Personal history of other venous thrombosis and embolism; Z99.81 Dependence on supplemental oxygen; F17.210 Nicotine dependence, cigarettes, uncomplicated; Z79.01 Long term (current) use of anticoagulants
CPT/HCPCS: 36415; 71250; 73562; 80048; 80053; 82805; 83690; 84145; 87040; 87077; 87637; 93005; 94640; 96365; 96367; 96375; 99285; 36600; 70450; 70486; 72125; 73590; 74176; 81003; 81015; 83605; 83880; 84439; 84443; 84484; 85025; 85610; 85730; 87086; 87186; 93010; J0612; J1815; J1941; J2543; J2919; J3372; J7620

== ENCOUNTER 2024-09-12 12:26 | Emergency (ER) | payer MEDICAID, SELFPAY ==
[2024-09-12] VITALS (16 sets, daily range): BP systolic 100–136; BP diastolic 62–79; PULSE 75–118; RESP 17–23; TEMP 36.4; O2SAT 88–93
--- NOTE | 2024-09-12 12:30 | RT.EKG_ITS ---
APPROVED REPORT Exam: Resting ECG Reason for Exam: dizziness Patient Location: E HR:90 bpm ECG Measurements Heart Rate 90 AXIS DE [id number] P [id number] QRSd 91 QRS 61 QT 416 T 59 QTc 511 Conclusion Atrial fibrillation...V-rate 65-119, irreg A-activity Low voltage, precordial leads...precordial leads <1.0mV Prolonged QT interval...QTc >500mS No STEMI
--- NOTE | 2024-09-12 12:39 | NUR.NOTE ---
Nursing Note: pt reports being on eliquis but doesn't know dose. Pt reports being on other meds but doesn't know them, doesn't have a list.
--- NOTE | 2024-09-12 12:50 | W.ED.GENAD ---
Discharge Plan Disposition Patient Disposition: Home Condition: Good Discharge Details Clinical Impression: Accident due to mechanical fall without injury, Weakness acquired in ICU Primary Care Provider: Ivan Rodriguez ED Provider: Alice John Home Meds and New Rx's Prescriptions: Continued albuterol sulfate 2.5 mg /3 mL (0.083 %) solution for nebulization 2.5 mg inhalation Q4H PRN (Reason: shortness of breath or wheezing) Qty: 180 0RF budesonide-formoterol [Symbicort] 160-4.5 mcg/actuation HFA aerosol inhaler 2 puff inhalation Q12H Qty: 10.2 0RF levalbuterol tartrate 45 mcg/actuation HFA aerosol inhaler 2 inh inhalation Q6H Qty: 15 6RF albuterol sulfate 90 mcg/actuation HFA aerosol inhaler 2 puff inhalation Q6H PRN (Reason: shortness of breath or wheezing) Qty: 6.7 0RF Discharge Instructions Instructions: Preventing Falls ED Additional Instructions: As discussed, your imaging is reassuring here today. You did have some arthritic changes in your back with some narrowing around your nerves. However, this is unlikely be associated with your fall today. I have spoken with our care management team and they are ensuring that home health nursing will come and see you tomorrow and they will help to expedite follow-up with rehab services including physical therapy and Occupational Therapy. Please continue with your physical therapy exercises that you are doing while you are hospitalized until you can be reevaluated by them. Please take care of that you are still weak and recovering from your recent hospitalization so go slow with your movements, continue your walker. Please follow your discharge recommendations from [facility]. If you develop any new or worsening symptoms please seek care urgently once again. Please follow-up with primary care in 1 to 2 weeks for reevaluation. Referrals: Ivna Rodriguez, [employer] [Primary Care Provider] - [facility] General Date/Time Provider Initiated Documentation: 09/12/24 12:37. Limitations to Documentation: no limitations. Information obtained by: patient and RN notes reviewed. History of Present Illness 64 year old F presents to the emergency department with the chief complaint of Fall, head injury, described as moderate, Quality is described as aching, and is localized to the head. Patient reports no radiation. Patient started experiencing this hour(s) and it has been now resolved. No relieving factors improve symptom(s), No exacerbating factors reported . Patient notes headaches (had PERRIN initially, this has improved) and nausea/vomiting (was initially nauseated but this is now resolved); denies chest pain, cough, fever/chills, loss of appetite, rash, shortness of breath and weakness (was able to walk to ambulance using walker). Patient did receive the following treatments prior to arrival, none Related Data Home Medications ?Medication ?Instructions ?Recorded ?Confirmed albuterol sulfate 90 mcg/actuation 2 puff inhalation Q6H PRN 06/12/22 09/12/24 aerosol inhaler shortness of breath or wheezing #6.7 grams albuterol sulfate 2.5 mg/3 mL 2.5 mg (3 mL) inhalation Q4H PRN 05/14/24 09/12/24 (0.083 %) solution for nebulization shortness of breath or wheezing #180 mL budesonide-formoterol HFA 160 2 puff inhalation Q12H #10.2 grams 05/14/24 09/12/24 mcg-4.5 mcg/actuation aerosol inhaler (Symbicort) levalbuterol tartrate 45 2 inh inhalation Q6H #15 grams 06/04/24 09/12/24 mcg/actuation aerosol inhaler Previous Rx's ?Medication ?Instructions ?Recorded albuterol sulfate 90 mcg/actuation 2 puff inhalation Q6H PRN 06/12/22 aerosol inhaler shortness of breath or wheezing #6.7 grams albuterol sulfate 2.5 mg/3 mL 2.5 mg (3 mL) inhalation Q4H PRN 05/14/24 (0.083 %) solution for nebulization shortness of breath or wheezing #180 mL budesonide-formoterol HFA 160 2 puff inhalation Q12H #10.2 grams 05/14/24 mcg-4.5 mcg/actuation aerosol inhaler (Symbicort) levalbuterol tartrate 45 2 inh inhalation Q6H #15 grams 06/04/24 mcg/actuation aerosol inhaler Allergies Allergy/AdvReac Type Severity Reaction Status Date / Time Sulfa (Sulfonamide Allergy Hives Verified 09/12/24 12:37 Antibiotics) General Stated Complaint: Fall/Non TraumaCriteria SARAH: 3 Review of Systems Constitutional Constitutional: Reports as per HPI, Denies fever(s), Denies headache(s) and Denies weakness Eyes Eyes: Reports as per HPI, Denies blurry vision, Denies change in vision and Denies loss of vision ENT Ears, Nose, Mouth, and Throat: Denies headache(s) Cardiovascular Cardiovascular: Reports as per HPI, Denies chest pain and Denies dyspnea Respiratory Respiratory: Reports as per HPI, Denies cough, Denies pain with cough and Denies dyspnea Gastrointestinal Gastrointestinal: Reports as per HPI, Denies abdominal pain, Denies nausea and Denies vomiting Genitourinary Genitourinary: Reports as per HPI and Denies urinary incontinence Musculoskeletal Musculoskeletal: Reports as per HPI Integumentary/Breasts Skin/Breast: Reports as per HPI and Denies rash Neurologic Neurologic: Reports as per HPI, Denies abnormal speech, Denies headache(s), Denies lack of coordination, Denies localized weakness, Denies loss of vision, Denies paresthesias and Denies weakness Exam Const General: cooperative, healthy appearing, comfortable, no acute distress, well developed and well groomed Nutritional Appearance: well nourished Orientation: alert, awake and oriented x3 HENMT Head: normal to inspection, no palpable skull fracture, normocephalic and atraumatic Ears: hearing grossly normal bilaterally General nose exam: external nose normal Mouth: oral mucosae normal, lip normal and tongue normal Throat: posterior oropharynx normal Eyes General: appearance normal, both eyes and all related structures Visual Lee: normal visual lee by confrontation Alignment and Position: alignment normal Periorbital: periorbital findings normal Eyelids: eyelids normal Conjunctivae: conjunctivae normal Pupils: PERRL EOM: EOM intact bilaterally Neck Neck: normal visual inspection, full ROM, trachea midline and supple Chest Chest: normal inspection of the chest, normal palpation of entire chest wall, no crepitus and no localized rib tenderness Resp Effort & Inspection: normal respiratory effort, able to speak in complete sentences and no respiratory distress Auscultation: clear to auscultation bilaterally, no rales, no rhonchi and no wheezes Cardio Rate: regular rate Rhythm: regular rhythm Heart Sounds: S1 normal and S2 normal GI Inspection: normal to inspection and non-distended Palpation: soft, not firm, no guarding and nontender Back/Spine/Pelvis Back: no CVA tenderness Cervical Spine: normal cervical lordosis and cervical ROM normal Thoracic/Lumbar Spine: thoracic and lumbar spine normal to inspection and No thoracic spinal tenderness Pelvis: no pain with anterior-posterior compression and no pain with lateral compression Skin General skin exam: no rashes or lesions noted Lesions: no lesions Rashes: no rashes Trauma: no lacerations or abrasions Wounds: no wounds Neuro General: patient alert, patient awake, patient oriented x3, tone normal and moves all extremities Cranial Nerves: CN's II-XI intact bilaterally Cognition: normal cognition Speech: speech normal Motor: muscle tone normal throughout and strength 5/5 throughout Sensory Exam: no sensory deficits noted (no saddle paresthesias) Extrem General: normal to inspection, full ROM, capillary refill normal, no pedal edema and no calf tenderness Course Vital Signs Vital signs: Vital Signs Temperature 36.4 C 09/12/24 12:31 Pulse 97 H 09/12/24 12:31 Respiratory Rate 18 09/12/24 12:31 Blood Pressure 100/79 09/12/24 12:31 Pulse Oximetry 90 L 09/12/24 12:31 Temperature 36.4 C 09/12/24 12:31 Temperature Source Oral 09/12/24 12:31 Pulse 97 H 09/12/24 12:31 Respiratory Rate 18 09/12/24 12:31 Blood Pressure 100/79 09/12/24 12:31 Pulse Oximetry 90 L 09/12/24 12:31 Oxygen Delivery Method Room Air 09/12/24 12:31 Oxygen Flow Rate 0 09/12/24 12:31 Pain Level 4 09/12/24 12:31 Medical Decision Making Patient is aplesant 64 year old female, H signficant for COPD, CHF, a.fib on coumadin, brought in via EMS after mechanical fall and striking her head. No LOC. Patient reports that around 11 AM she was getting dressed for expectant home health nurse visit. Patient was discharged from [facility] after prolonged 3-month stay with them in the ICU for respiratory compromise. During that time, patient did have a tracheostomy which has since been reversed. She states that while she was trying to pull up her pants when she lost her balance and fell hitting the posterior aspect of her head against a hard floor. She denies any loss of consciousness but states that she did feel dazed, dizzy, nauseated and had a headache for a brief period of time. The symptoms have all since resolved. Initially, the patient had also endorsing neck pain but she reports that this too has resolved. She states that she has a weight on her back and has had some back discomfort but this sounds to be fairly nonfocal. She denies any incontinence, new weakness. No paresthesias. She reports she has had some weakness associated with her prolonged hospitalization. She is concerned that they had recommended her to go to rehab but was unable to obtain bed placement. She is interested in working with home PT, OT is not sure if these have been established for her yet. On exam, patient appears nontoxic. She is resting comfortably no acute distress. She is hemodynamically stable. Her oxygen was slightly low but this does appear to be her baseline. Prior to her admission in May it does appear that the patient was on baseline oxygen which she states she is no longer on. She does report that she uses BiPAP at night for her sleep apnea. And not appreciate any skull tenderness, no swelling. No evidence to suggest basilar skull fracture. She is neurologically intact. No midline tenderness along the C-spine, T or L. Over, patient's range of motion does seem slightly limited although she also reports that she is weak after being in the hospital for so long. Her pain in her back seems to be fairly diffuse making the exam slightly limited and difficult. Will obtain imaging of head, neck and back. Imaging was reviewed by radiologist, no evidence of acute abnormalities in any of the imaging. There was some scarring in the lungs which has approximated based on the patient's recent admission at course there. Care management is going to check in on her referrals. they advised that they have already referred for nursing, PT/OT. I discussed the referrals to PT, OT as well as home health with the patient. Our care management team is going to try and have nursing staff rescheduled for tomorrow. Return precautions were discussed. Encourage follow-up with primary care. All their questions and concerns were addressed and she is agreement this plan. I also discussed safety at home and fall prevention. this documentation was generated using [employer] system, please disregard any oddities of phrase or misspellings. Quality:SDOH Health Related Social Needs: No Data to Display PFSH All Active Problems (Updated 09/12/24 @ 14:50 by ZAIDA Guerra) Weakness acquired in ICU (Acute) Accident due to mechanical fall without injury (Acute) Asthma-COPD overlap syndrome (Acute) Chronic respiratory failure (Acute) COPD (chronic obstructive pulmonary disease) (Chronic) PFTs suggest COPD-asthma overlap Tobacco abuse disorder (Chronic) Thromboembolic disorder (Chronic) Pt states she has hx of PE's RH 07/18/23 Chronic anticoagulation (Acute) Fatigue (Acute) Sciatica of left side (Acute) Medical History Dental infection Productive cough Abnormal ECG Palpitations Dyspnea Pneumonia Rhinosinusitis COPD exacerbation Acute respiratory failure with hypoxia and hypercarbia H/O deep venous thrombosis Walking pneumonia Surgical History H/O section Family History Mother , 81 Heart disease Father , 83 Heart disease Sister No problems noted. Sister No problems noted. Sister No problems noted. Brother No problems noted. Son No problems noted. Son No problems noted. Son No problems noted. Daughter No problems noted. Maternal Grandfather , 70 No problems noted. Paternal Grandfather , 77 Heart disease Maternal Grandmother , 90 No problems noted. Paternal Grandmother , 83 No problems noted. Social History Smoking/Tobacco Use Status: Current every day Tobacco Type: cigarettes Tobacco: How many years used: 45 Quit status: considering quitting Second Hand Exposure: Yes Smoking risk assessment performed?: Yes Alcohol Intake: never Drug use: Never Substance use type: does not use Caregiver/Support person: No Household members: children Housing: apartment Communication Needs: None Do you need help understanding health information?: Never Pets and animals: No Sexually active: No Do you think of yourself as: straight/heterosexual Current gender identity: female What is your relationship status?: How often do you talk on the phone with friends or family?: once per week How often do you get together with friends or relatives?: decline to answer How often do you attend mandaen or alevism services?: 1-3 times per year Do you belong to any clubs or organized social groups?: no Panel score (0-1 are the most socially isolated patients): 0 What type of physical activity do you participate in: none Frequency: does not exercise Ana Laura/Tenriism: No preference Special ana laura needs: No Seatbelt use: always Drive intox or ride w/intox local delivery driver: No Do you feel safe at home: Yes Do you feel safe in your relationship?: Yes
--- NOTE | 2024-09-12 13:00 | DI.CT_ITS ---
Exam(s) CT HEAD CERVICAL SPINE WO EXAM: CT HEAD CERVICAL SPINE WO CLINICAL HISTORY: lost balance, struck back of head. TECHNIQUE: Imaging Protocol: Axial computed tomography images with coronal and sagittal reformatted images were created and reviewed COMPARISON: CT CT HEAD CERV SPINE FACIAL WO from 06/11/2024 FINDINGS: BRAIN: There are no skull fractures nor fluid in the visualized paranasal sinuses. There is no evidence of intracranial hemorrhage, mass effect, or shift of midline structures. There are no extra-axial fluid collections. The ventricles are not enlarged or shifted and there is no blo od within the ventricular system nor within the basal cisterns. CERVICAL SPINE: There is no evidence of fracture nor listhesis. No significant prevertebral soft tissue swelling. Calcification the transverse ligament behind the odontoid process is again noted. There is no down t oward fracture. All the disc spaces continue to exhibit normal height. No significant facet arthropathy. There is no significant facet joint malalignment. No significant osseous lesions evident. Calcification in the supraspinous ligament region at C5 level is unchanged from 2023. No evidence of spinous process fracture. IMPRESSION: No acute intracranial findings on this noninfused CT scan of the brain. No evidence of cervical spine fracture, malalignment, nor acute compromise of the cervical spinal can al. Report called by myself to ER 09/12/2024 at 2:25 p.m. RADIATION DOSE DELIVERED: 1,464.43mGy.cm Total DLP DATA REPOSITORY: All CT scans at this facility are submitted to the National Radiology Data Registry (NRDR) Dose Index Registry (DIR) with the [employer] (ACR). RADIATION OPTIMIZATION: All CT scans at this facility use at least one of these dose optimization te chniques: automated exposure control; mA and/or kV adjustment per patient size (includes targeted exa ms where dose is matched to clinical indication); or iterative reconstruction.
--- NOTE | 2024-09-12 13:15 | DI.CT_ITS ---
Exam(s) CT THORACIC LUMBAR SPINE WO EXAM: CT THORACIC LUMBAR SPINE WO CLINICAL HISTORY: fall, low T, upper L pain. TECHNIQUE: Imaging Protocol: Axial computed tomography images with coronal and sagittal reformatted images were created and reviewed. CONTRAST MATERIAL: Intravenous: None COMPARISON: No exams were available for comparison FINDINGS: THORACIC SPINAL COLUMN: No evidence compression fracture or listhesis. Facet joints appear unremarkable and with no evidence of facet malalignment. There are multilevel anterior-right bridging osteophytes. No scoliosis. No abnormal widening of the paraspinal lines. No osseous lesions. Bone density normal. There mild infiltrate noted in the right lung base right lower lobe posterior basal segment. the chey gs are only partially included in the field of view of this dedicated spine study. No pleural effusi on. LUMBOSACRAL SPINAL COLUMN: No evidence of acute fracture, listhesis, nor pars defects. There is partial sacralization of the L5 segment on the right side. No significant disc space narrowing although there is some vacuum phenom enon seen within the central disc space through at L1-2 level and mild anterior osseous lipping at th is level noted. There is severe central spinal canal stenosis at L4-5 level which is due to short AP dimensions the pedicles, broad annular bulging and prominent bilateral facet arthropathy. There is mild central canal stenosis at L3-4 level. Tarlov intra sacral cysts are noted in the upper left side sacral canal, this so seated with smooth o sseous erosion of the sacrum. IMPRESSION: Findings as above but no evidence of acute fractures in the thoracic and lumbosacral spinal columns. There is severe central spinal canal stenosis evident at L4-5 level as described above. Mild infiltrate is noted in the lung bases, slightly more so on the right side. There are no obvious pleural effusions. Report of all CT scans on this patient called by myself to ER physician 09/12/2024 at 2:40 p.m. RADIATION DOSE DELIVERED: 3,610.04mGy.cm Total DLP DATA REPOSITORY: All CT scans at this facility are submitted to the National Radiology Data Registry (NRDR) Dose Index Registry (DIR) with the [employer] (ACR). RADIATION OPTIMIZATION: All CT scans at this facility use at least one of these dose optimization te chniques: automated exposure control; mA and/or kV adjustment per patient size (includes targeted exa ms where dose is matched to clinical indication); or iterative reconstruction.
== END 2024-09-12 14:52 | disposition home or self-care (01) ==
LOC: ER 14:52
PROVIDERS: Emergency Provider Physician Assistant; PCP Nurse Practitioner Family
DX: S09.8XXA Other specified injuries of head, initial encounter (principal); I48.91 Unspecified atrial fibrillation; J44.9 Chronic obstructive pulmonary disease, unspecified; I50.9 Heart failure, unspecified; F17.210 Nicotine dependence, cigarettes, uncomplicated; Z79.01 Long term (current) use of anticoagulants; W18.39XA Other fall on same level, initial encounter; Y93.89 Activity, other specified; Y92.018 Other place in single-family (private) house as the place of occurrence of the external cause
CPT/HCPCS: 93005; 99284; 70450; 72125; 72128; 72131; 93010

== ENCOUNTER 2024-09-18 15:55 | Outpatient (REF) | payer MEDICAID, SELFPAY ==
[2024-09-18 19:31] LABS: Abs Immature Grans 0.07 10^3/uL (0.0-0.06); Absolute Basophil Count 0.05 10^3/uL (0.0-0.2); Absolute Eosinophil Count 0.21 10^3/uL (0.0-0.7); Absolute Lymphocyte Count 2.26 10^3/uL (1.2-3.4); Absolute Neutrophil Count 4.63 10^3/uL (1.2-6.7); Basophils % 0.6 %; Eosinophils % 2.7 %; HCT 31.9 % (36.0-46.0); HGB 10.4 g/dL (11.2-15.7); Immature Grans % 0.9 %; Lymphocytes % 28.5 %; MCH 32.5 pg (27.0-33.0); MCHC 32.6 % (32.0-36.0); MCV 100 fL (80-95); MPV 9.9 fL (8.0-11.0); Monocytes % 8.8 %; Neutrophils % 58.5 %; Platelet Count 288 10^3/uL (130-400); RDW 15.3 % (11.7-14.6); RDW-SD 55.5 fL; WBC 7.92 10^3/uL (4.4-10.8)
[2024-09-18 19:45] LABS: Anion Gap 7.1 mmol/L (3-11); BUN 27 mg/dL (7-18); CO2 30.9 mmol/L (21.0-32.0); CREATININE 1.2 mg/dL (0.55-1.02); Calcium 8.9 mg/dL (8.5-10.1); Chloride 103 mmol/L (98-107); Estimated GFR 50.55 (mL/min/1.73m2); Glucose 98 mg/dL (74-106); Magnesium 1.9 mg/dL (1.8-2.4); Potassium 4.8 mmol/L (3.5-5.1); Sodium 141 mmol/L (136-145)
[2024-09-18 19:54] LABS: Hemoglobin A1C < 4.5 % (<5.7)
[2024-09-18 19:56] LABS: Iron 65 ug/dL (50-170); Total Iron Binding Capacity 235 ug/dL (250-450); Transferrin Sat 28 % (15-50)
== END 2024-09-18 15:56 | disposition home or self-care (01) ==
LOC: NCHCN 15:55
PROVIDERS: Visit Provider Family Medicine
DX: I48.91 Unspecified atrial fibrillation (principal); I50.9 Heart failure, unspecified
CPT/HCPCS: 80048; 83036; 83540; 83550; 83735; 85025

== ENCOUNTER 2024-09-19 15:52 | Outpatient (REF) | payer MEDICAID, SELFPAY | END 2024-09-19 15:53 | disposition home or self-care (01) | LOC: NCHCN 15:52 | PROVIDERS: Visit Provider Family Medicine | DX: N39.0 Urinary tract infection, site not specified (principal) | CPT/HCPCS: 87077; 87086; 87186 ==

== ENCOUNTER 2024-10-09 13:05 | Outpatient (REF) | payer MEDICAID, SELFPAY ==
[2024-10-09 17:23] LABS: Anion Gap 7.6 mmol/L (3-11); BUN 35 mg/dL (7-18); CO2 30.4 mmol/L (21.0-32.0); CREATININE 1.1 mg/dL (0.55-1.02); Calcium 9.1 mg/dL (8.5-10.1); Chloride 102 mmol/L (98-107); Estimated GFR 56.11 (mL/min/1.73m2); Folate > 20.0 ng/mL (8.6-20.0); Glucose 117 mg/dL (74-106); Potassium 4.4 mmol/L (3.5-5.1); Sodium 140 mmol/L (136-145); Vitamin B12 512 pg/mL (193-986)
[2024-10-09 17:41] LABS: NT-proBNP 2118 pg/mL (<300)
[2024-10-12 11:53] LABS: Methylmalonic Acid 0.41 nmol/mL (<=0.40)
== END 2024-10-09 13:06 | disposition home or self-care (01) ==
LOC: NCHCN 13:05
PROVIDERS: PCP Family Medicine; Visit Provider Family Medicine
DX: I50.82 Biventricular heart failure (principal); D75.89 Other specified diseases of blood and blood-forming organs
CPT/HCPCS: 80048; 80186; 82607; 82746; 83735; 83880

== ENCOUNTER 2024-11-09 14:01 | Outpatient (CLI) | payer MEDICAID, SELFPAY ==
[2024-11-09 14:39] LABS: Anion Gap 4.6 mmol/L (3-11); BUN 48 mg/dL (7-18); CO2 36.4 mmol/L (21.0-32.0); CREATININE 1.6 mg/dL (0.55-1.02); Calcium 9.4 mg/dL (8.5-10.1); Chloride 99 mmol/L (98-107); Estimated GFR 35.79 (mL/min/1.73m2); Glucose 100 mg/dL (74-106); Sodium 140 mmol/L (136-145)
== END 2024-11-09 14:02 | disposition home or self-care (01) ==
LOC: LBO 14:01
PROVIDERS: PCP Family Medicine; Visit Provider Student in an Organized Health Care Education/Training Program
DX: I50.82 Biventricular heart failure (principal); I50.9 Heart failure, unspecified
CPT/HCPCS: 36415; 80048

== ENCOUNTER 2024-12-05 22:34 | Outpatient (REF) | payer MEDICAID, SELFPAY ==
[2024-12-05 23:06] LABS: Anion Gap 8.4 mmol/L (3-11); BUN 70 mg/dL (7-18); CO2 34.6 mmol/L (21.0-32.0); CREATININE 2.4 mg/dL (0.55-1.02); Chloride 95 mmol/L (98-107); Glucose 139 mg/dL (74-106); Magnesium 2.7 mg/dL (1.8-2.4); Potassium 4.1 mmol/L (3.5-5.1); Sodium 138 mmol/L (136-145)
== END 2024-12-05 22:35 | disposition home or self-care (01) ==
LOC: NCHCN 22:34
PROVIDERS: PCP Family Medicine; Visit Provider Family Medicine
DX: I48.91 Unspecified atrial fibrillation (principal)
CPT/HCPCS: 80048; 83735

== ENCOUNTER 2024-12-17 13:47 | Outpatient (CLI) | payer MEDICAID, SELFPAY ==
[2024-12-17 10:12] LABS: Anion Gap 6.7 mmol/L (3-11); BUN 68 mg/dL (7-18); CO2 37.3 mmol/L (21.0-32.0); Calcium 9.2 mg/dL (8.5-10.1); Chloride 93 mmol/L (98-107); Estimated GFR 25.83 (mL/min/1.73m2); Glucose 118 mg/dL (74-106); Potassium 3.0 mmol/L (3.5-5.1); Sodium 137 mmol/L (136-145)
== END 2024-12-17 13:48 | disposition home or self-care (01) ==
LOC: LBO 13:50
PROVIDERS: PCP Family Medicine; Visit Provider Student in an Organized Health Care Education/Training Program
DX: I50.9 Heart failure, unspecified (principal); I50.82 Biventricular heart failure
CPT/HCPCS: 36415; 80048; 83735

== ENCOUNTER 2025-01-15 11:16 | Emergency (ER) | payer MEDICAID, SELFPAY ==
[2025-01-15] VITALS (15 sets, daily range): BP systolic 85–123; BP diastolic 50–59; PULSE 49–59; RESP 16–19; TEMP 36.7–36.8; O2SAT 91–98
--- NOTE | 2025-01-15 11:15 | RT.EKG_ITS ---
APPROVED REPORT Exam: Resting ECG Reason for Exam: Chest Pain Patient Location: E HR:58 bpm ECG Measurements Heart Rate 58 AXIS HI 271 P 76 QRSd 89 QRS 57 QT 459 T 75 QTc 450 Conclusion Sinus bradycardia...rate< 60 Prolonged HI interval...HI >220, V-rate 50- 90 Low voltage, precordial leads...precordial leads <1.0mV Nonspecific T abnormalities, lateral leads...T <-0.10mV, I aVL V5 V6 Sinus bradycardia. first degree heart block, non-specific T wave abnormalities. When compared to prior 09/12/24 no longer in a fib and QT has improved. WD
--- NOTE | 2025-01-15 11:51 | W.ED.GENAD ---
Discharge Plan Disposition Patient Disposition: Home Condition: Stable Discharge Details Clinical Impression: Fall, Head injury, Contusion of rib on left side Primary Care Provider: Adair Morton ED Provider: Tiffany Corey [place] Meds and New Rx's Prescriptions: No Action amiodarone 200 mg tablet 200 mg PO DAILY Eliquis 5 mg tablet 5 mg PO BID famotidine [Acid Chucking Machine Operator (famotidine)] 20 mg tablet 20 mg PO BID furosemide [Lasix] 40 mg tablet 40 mg PO BID magnesium oxide 400 mg (241.3 mg magnesium) tablet 400 mg PO BID metoprolol succinate [Toprol XL] 50 mg tablet extended release 24 hr 150 mg PO DAILY sertraline 50 mg tablet 50 mg PO DAILY tiotropium bromide [Spiriva with HandiHaler] 18 mcg capsule, w/inhalation device 1 cap inhalation DAILY Rx Instructions: puncture 1 cap using device; one dose = 2 inhalations albuterol sulfate 2.5 mg /3 mL (0.083 %) solution for nebulization 2.5 mg inhalation Q4H PRN (Reason: shortness of breath or wheezing) Qty: 180 0RF budesonide-formoterol [Symbicort] 160-4.5 mcg/actuation HFA aerosol inhaler 2 puff inhalation Q12H Qty: 10.2 0RF levalbuterol tartrate 45 mcg/actuation HFA aerosol inhaler 2 inh inhalation Q6H Qty: 15 6RF albuterol sulfate 90 mcg/actuation HFA aerosol inhaler 2 puff inhalation Q6H PRN (Reason: shortness of breath or wheezing) Qty: 6.7 0RF Discharge Instructions Instructions: Concussion in adults, Head injury in adults, Bruised Rib Additional Instructions: The CT of your head, cervical spine, chest abdomen and pelvis do not show any acute traumatic findings today. Clinically I do feel that you likely have a concussion and rib contusion. This may take several weeks to resolve. You may take [id number] medication to help with symptoms. You also had an elevated BUN today. This means that you may be a little dehydrated. It could be due to your dose of diuretic. Please call your doctor to discuss the findings and determine whether or not they feel that you need to change your dose of medication. Please return immediately with any new or worsening symptoms. Discharge Data Discharge Physician: Tiffany Corey [facility] General Date/Time Provider Initiated Documentation: 01/15/25 11:29. HPI Narrative: 64-year-old female with history of COPD, PE, congestive heart failure presents for evaluation of left-sided chest pain. Patient states that yesterday she was getting an ultrasound on when she fell. She is not exactly sure why she fell however she has difficulty ambulating long distances and normally uses a walker. She did not think that the ultrasound would be such a long walk. She fell down and it took several people to help her up. She did hit her head. Denies any loss of consciousness. She states that her head is not felt right since that time. She does have a little neck discomfort. She developed some pain in the left side of her chest which is worse with taking a deep breath or moving after the fall yesterday. She denies any fevers or chills. No cough or cold. No increased leg pain or swelling. No numbness or tingling in her extremities. No weakness in her extremities. No abdominal pain. She is on blood thinners. Related Data Home Medications ?Medication ?Instructions ?Recorded ?Confirmed albuterol sulfate 90 mcg/actuation 2 puff inhalation Q6H PRN 06/12/22 09/12/24 aerosol inhaler shortness of breath or wheezing #6.7 grams albuterol sulfate 2.5 mg/3 mL 2.5 mg (3 mL) inhalation Q4H PRN 05/14/24 09/12/24 (0.083 %) solution for nebulization shortness of breath or wheezing #180 mL budesonide-formoterol HFA 160 2 puff inhalation Q12H #10.2 grams 05/14/24 09/12/24 mcg-4.5 mcg/actuation aerosol inhaler (Symbicort) levalbuterol tartrate 45 2 inh inhalation Q6H #15 grams 06/04/24 09/12/24 mcg/actuation aerosol inhaler amiodarone 200 mg tablet 200 mg PO DAILY 09/13/24 09/13/24 apixaban 5 mg tablet (Eliquis) 5 mg PO BID 09/13/24 09/13/24 famotidine 20 mg tablet (Acid 20 mg PO BID 09/13/24 09/13/24 Chucking Machine Operator (famotidine)) furosemide 40 mg tablet (Lasix) 40 mg PO BID 09/13/24 09/13/24 magnesium oxide 400 mg (241.3 mg 400 mg PO BID 09/13/24 09/13/24 magnesium) tablet metoprolol succinate 50 mg 150 mg PO DAILY 09/13/24 09/13/24 tablet,extended release 24 hr (Toprol XL) sertraline 50 mg tablet 50 mg PO DAILY 09/13/24 09/13/24 tiotropium bromide 18 mcg capsule 1 cap inhalation DAILY 09/13/24 09/13/24 with inhalation device (Spiriva with HandiHaler) Previous Rx's ?Medication ?Instructions ?Recorded albuterol sulfate 90 mcg/actuation 2 puff inhalation Q6H PRN 06/12/22 aerosol inhaler shortness of breath or wheezing #6.7 grams albuterol sulfate 2.5 mg/3 mL 2.5 mg (3 mL) inhalation Q4H PRN 05/14/24 (0.083 %) solution for nebulization shortness of breath or wheezing #180 mL budesonide-formoterol HFA 160 2 puff inhalation Q12H #10.2 grams 05/14/24 mcg-4.5 mcg/actuation aerosol inhaler (Symbicort) levalbuterol tartrate 45 2 inh inhalation Q6H #15 grams 06/04/24 mcg/actuation aerosol inhaler Allergies Allergy/AdvReac Type Severity Reaction Status Date / Time Sulfa (Sulfonamide Allergy Hives Verified 01/15/25 11:24 Antibiotics) General Stated Complaint: Chest Pain SARAH: 2 Review of Systems Narrative: Remainder of review of systems otherwise negative except for as noted in the HPI x 10. Exam Narrative Exam Narrative: General: non-toxic, no respiratory distress, comfortable HEENT: normocephalic, atraumatic, lids and lashes normal, PERRL, EOMI, anicteric sclera, no conjunctival injection, moist oral mucosa Neck: No vertebral tenderness, no meningeal signs Card: regular rate and rhythm, S1S2, no murmurs, rubs, or gallops Lungs: good air entry, clear to auscultation bilaterally. no wheezes, rales, rhonchi, or retractions Abd: soft, non-tender, non-distended, normal bowel sounds, no rebound or guarding, no peritoneal signs Musculoskeletal: No vertebral tenderness, pelvis stable, full range of motion of arms and legs, no tenderness to palpation. no clubbing, cyanosis, or edema Neurologic: GSC 15, CN 2-12 intact bilaterally, speech normal, strength normal, sensation intact distally in all four extremities, 2+ biceps tendon reflexes, normal finger to nose, normal rapid alternating movements, no pronator drift Psych: alert and oriented Skin: no petechiae, no lesions, warm and dry Course Vital Signs Vital signs: Vital Signs Temperature 36.7 C 01/15/25 11:19 Pulse 59 L 01/15/25 11:19 Respiratory Rate 18 01/15/25 11:19 Blood Pressure 85/55 L 01/15/25 11:19 Pulse Oximetry 92 01/15/25 11:19 Temperature 36.7 C 01/15/25 11:19 Temperature Source Oral 01/15/25 11:19 Pulse 59 L 01/15/25 11:19 Respiratory Rate 18 01/15/25 11:19 Blood Pressure 85/55 L 01/15/25 11:19 Blood Pressure Position Sitting 01/15/25 11:19 Pulse Oximetry 92 01/15/25 11:19 Oxygen Delivery Method Room Air 01/15/25 11:19 Oxygen Flow Rate 0 01/15/25 11:19 Medical Decision Making 64-year-old female with history of COPD, CHF, PE presents for evaluation of left-sided chest pain after fall. She also does not think that her head feels quite right. At time my evaluation she is neurologically intact. NIH stroke score equals 0. EKG does not show any acute ischemic changes. Laboratory studies unremarkable. 2 troponins flat. She does have some mild elevation of her BUN today compared to her baseline. She states that she is on a very high dose of her diuretic right now. I have recommended follow-up with prescribing provider to determine if she needs to lower this dose slightly. CT head, cervical spine, chest abdomen pelvis were obtained. No acute traumatic findings were noted. Clinically patient appears to have a concussion and rib contusion. She will continue symptomatic treatment as needed. She understands indications to return. PFSH All Active Problems (Updated 01/15/25 @ 15:00 by Tiffany Corey MD) Contusion of rib on left side (Acute) Head injury (Acute) Fall (Acute) Asthma-COPD overlap syndrome (Acute) Chronic respiratory failure (Acute) COPD (chronic obstructive pulmonary disease) (Chronic) PFTs suggest COPD-asthma overlap Tobacco abuse disorder (Chronic) Thromboembolic disorder (Chronic) Pt states she has hx of PE's RH 07/18/23 Chronic anticoagulation (Acute) Fatigue (Acute) Sciatica of left side (Acute) Medical History Dental infection Productive cough Abnormal ECG Palpitations Dyspnea Pneumonia Rhinosinusitis COPD exacerbation Acute respiratory failure with hypoxia and hypercarbia H/O deep venous thrombosis Walking pneumonia Surgical History H/O section Family History Mother , 81 Heart disease Father , 83 Heart disease Sister No problems noted. Sister No problems noted. Sister No problems noted. Brother No problems noted. Son No problems noted. Son No problems noted. Son No problems noted. Daughter No problems noted. Maternal Grandfather , 70 No problems noted. Paternal Grandfather , 77 Heart disease Maternal Grandmother , 90 No problems noted. Paternal Grandmother , 83 No problems noted. Social History Smoking/Tobacco Use Status: Current every day Tobacco Type: cigarettes Tobacco: How many years used: 45 Quit status: considering quitting Second Hand Exposure: Yes Smoking risk assessment performed?: Yes Alcohol Intake: never Drug use: Never Substance use type: does not use Caregiver/Support person: No Household members: children Housing: apartment Communication Needs: None Do you need help understanding health information?: Never Pets and animals: No Sexually active: No Do you think of yourself as: straight/heterosexual Current gender identity: female What is your relationship status?: How often do you talk on the phone with friends or family?: once per week How often do you get together with friends or relatives?: decline to answer How often do you attend scientology or mosque services?: 1-3 times per year Do you belong to any clubs or organized social groups?: no Panel score (0-1 are the most socially isolated patients): 0 What type of physical activity do you participate in: none Frequency: does not exercise Ana Laura/Caodaism: No preference Special ana laura needs: No Seatbelt use: always Drive intox or ride w/intox tanker truck driver: No Do you feel safe at home: Yes Do you feel safe in your relationship?: Yes
[2025-01-15 12:19] LABS: Abs Immature Grans 0.03 10^3/uL (0.0-0.06); HCT 29.5 % (36.0-46.0); HGB 9.7 g/dL (11.2-15.7); Immature Grans % 0.5 %; MCH 31.8 pg (27.0-33.0); MCHC 32.9 % (32.0-36.0); MCV 97 fL (80-95); MPV 9.1 fL (8.0-11.0); Platelet Count 196 10^3/uL (130-400); RBC 3.05 10^6/uL (3.93-5.22); RDW 14.9 % (11.7-14.6); RDW-SD 52.4 fL; WBC 5.51 10^3/uL (4.4-10.8)
[2025-01-15 12:52] LABS: ALT 27 U/L (14-59); AST 18 U/L (15-37); Albumin 3.8 g/dL (3.4-5.0); Alkaline Phosphatase 115 U/L (46-116); Anion Gap 5.6 mmol/L (3-11); Bilirubin, Total 0.5 mg/dL (0.2-1.0); CO2 33.4 mmol/L (21.0-32.0); Calcium 9.1 mg/dL (8.5-10.1); Chloride 99 mmol/L (98-107); Estimated GFR 22.00 (mL/min/1.73m2); Glucose 120 mg/dL (74-106); Potassium 4.0 mmol/L (3.5-5.1); Sodium 138 mmol/L (136-145); Total Protein 7.7 g/dL (6.4-8.2); Troponin I 8 ng/L (<or=51)
[2025-01-15 12:54] LABS: Troponin I 8 ng/L (<or=51)
[2025-01-15 12:56] LABS: NT-proBNP 332 pg/mL (<300)
[2025-01-15 12:57] LABS: BUN 83 mg/dL (7-18)
--- NOTE | 2025-01-15 13:00 | DI.CT_ITS ---
Exam(s) CT CHEST/ABD/PEL WO EXAM: CT CHEST/ABD/PEL WO CLINICAL HISTORY: fall, left sided pain TECHNIQUE: Imaging Protocol: Axial computed tomography images with coronal and sagittal reformatted images were created and reviewed. Computer aided detection (CAD) was utilized. COMPARISON: CT CT CHEST/ABD/PEL WO from 06/11/2024 FINDINGS: CHEST: Tracheobronchial tree: Patent where visualized. No bronchiectasis. Pulmonary parenchyma: There are scattered ground-glass opacities in the right upper and lower lobes. No focal consolidating infiltrates are present. No architectural distortion. Mediastinum and Bebe: No dominant adenopathy or fluid collection. The esophagus is unremarkable. Thyroid gland: Unremarkable. Pleura: No effusion or pneumothorax. Heart: The heart is not dilated. Mild coronary artery calcification is present. No pericardial effusion. Aorta: Thoracic aorta non-dilated. Atherosclerotic calcification is present. Lymph nodes: Within normal limits. Bones:Within normal limits for the patient's age. Soft tissues: Unremarkable. ABDOMEN: Liver: Normal density. There is a stable cyst in the left lobe of the liver. Gallbladder and Biliary Tract: No radiodense calculus or dilation. Pancreas: Normal density, no abnormal calcifications or inflammatory process. Spleen: Normal. Adrenals: No masses seen. Kidneys: Normal size, contour and axis. No radiodense stones or obstructive uropathy. No masses seen. Abdominal Aorta: Abdominal portion non-dilated. Atherosclerotic calcification is present. Bowel: No obstruction or bowel wall thickening. Appendix is unremarkable. Peritoneal Cavity: No ascites, collection or mesenteric inflammatory response. No free air. Lymph Nodes: Within normal limits. Bones: Within normal limits for the patient's age. Soft Tissues: Unremarkable. PELVIS: Bladder: Symmetric distention, no gross wall thickening. Reproductive Organs: Unremarkable as visualized. Lymph Nodes: Within normal limits. Bones: Within normal limits for the patient's age. IMPRESSION: 1. Several ground-glass opacity seen within the right lung. These may represent contusions, atelectasis or pneumonia. 2. No acute fracture. 3. No acute abdominal or pelvic process. RADIATION DOSE DELIVERED: 1,508.37mGy.cm Total DLP 1,508.37mGy.cm Total DLP DATA REPOSITORY: All CT scans at this facility are submitted to the National Radiology Data Registry (NRDR) Dose Index Registry (DIR) with the [employer] ([employer]). RADIATION OPTIMIZATION: All CT scans at this facility use at least one of these dose optimization techniques: automated exposure control; mA and/or kV adjustment per patient size (includes targeted exams where dose is matched to clinical indication); or iterative reconstruction.
--- NOTE | 2025-01-15 13:10 | DI.CT_ITS ---
Exam(s) CT HEAD CERVICAL SPINE WO EXAM: CT HEAD CERVICAL SPINE WO CLINICAL HISTORY: fall, injury. TECHNIQUE: Imaging Protocol: Axial computed tomography images with coronal and sagittal reformatted images were created and reviewed COMPARISON: CT CT HEAD CERVICAL SPINE WO from 09/12/2024 FINDINGS: CT Head: Ventricles and Extra axial spaces: Normal in size and morphology for the patient's age. Hemorrhage: None. Cerebral parenchyma: There is no evidence of an acute territorial infarct or mass effect. Midline shift: None. Brainstem/Cerebellum: Normal. Calvarium: Normal. Visualized Paranasal sinuses/Mastoids: Clear. Soft Tissues: Unremarkable. CT Cervical Spine: Bones: No acute fracture or subluxation. Age-appropriate degenerative changes are seen in the cervical spine. Soft Tissues: Unremarkable. Lung Apices: Clear. IMPRESSION: 1. No acute intracranial process. 2. No acute fracture or subluxation in the cervical spine. RADIATION DOSE DELIVERED: 1,361.32mGy.cm Total DLP DATA REPOSITORY: All CT scans at this facility are submitted to the National Radiology Data Registry (NRDR) Dose Index Registry (DIR) with the [employer] ([employer]). RADIATION OPTIMIZATION: All CT scans at this facility use at least one of these dose optimization techniques: automated exposure control; mA and/or kV adjustment per patient size (includes targeted exams where dose is matched to clinical indication); or iterative reconstruction.
[2025-01-15 14:45] LABS: Troponin I 8 ng/L (<or=51)
== END 2025-01-15 15:23 | disposition home or self-care (01) ==
PROVIDERS: Emergency Provider Emergency Medicine Emergency Medical Services; PCP Family Medicine
DX: R07.9 Chest pain, unspecified (principal); S09.8XXA Other specified injuries of head, initial encounter; S20.212A Contusion of left front wall of thorax, initial encounter; R00.1 Bradycardia, unspecified; J44.9 Chronic obstructive pulmonary disease, unspecified; F17.210 Nicotine dependence, cigarettes, uncomplicated; Z79.82 Long term (current) use of aspirin; W18.30XA Fall on same level, unspecified, initial encounter
CPT/HCPCS: 71250; 80053; 93005; 99285; 70450; 72125; 74176; 83880; 84484; 85025; 93010; 99284

== ENCOUNTER 2025-02-08 15:28 | Outpatient (REF) | payer MEDICAID, SELFPAY ==
[2025-02-08 16:06] LABS: HCT 29.9 % (36.0-46.0); HGB 9.5 g/dL (11.2-15.7); MCH 30.6 pg (27.0-33.0); MCHC 31.8 % (32.0-36.0); MCV 97 fL (80-95); MPV 9.0 fL (8.0-11.0); Platelet Count 293 10^3/uL (130-400); RBC 3.10 10^6/uL (3.93-5.22); RDW 14.9 % (11.7-14.6); RDW-SD 51.6 fL; WBC 5.50 10^3/uL (4.4-10.8)
[2025-02-08 16:14] LABS: Anion Gap 10.0 mmol/L (3-11); BUN 66 mg/dL (7-18); CO2 33.0 mmol/L (21.0-32.0); Calcium 9.5 mg/dL (8.5-10.1); Chloride 97 mmol/L (98-107); Estimated GFR 23.16 (mL/min/1.73m2); Glucose 101 mg/dL (74-106); Magnesium 2.5 mg/dL (1.8-2.4); Potassium 4.2 mmol/L (3.5-5.1); Sodium 140 mmol/L (136-145)
[2025-02-08 16:22] LABS: Iron 56 ug/dL (50-170); Total Iron Binding Capacity 268 ug/dL (250-450); Transferrin Sat 21 % (15-50)
== END 2025-02-08 15:29 | disposition home or self-care (01) ==
LOC: NCHCN 15:28
PROVIDERS: PCP Family Medicine; Visit Provider Family Medicine
DX: I50.82 Biventricular heart failure (principal)
CPT/HCPCS: 80048; 85027; 83540; 83550; 83735

== ENCOUNTER 2025-04-03 16:09 | Outpatient (REF) | payer MEDICAID, SELFPAY ==
[2025-04-03 20:38] LABS: Anion Gap 10.0 mmol/L (3-11); BUN 53 mg/dL (7-18); CO2 34.0 mmol/L (21.0-32.0); Calcium 9.0 mg/dL (8.5-10.1); Chloride 97 mmol/L (98-107); Estimated GFR 23.16 (mL/min/1.73m2); Glucose 94 mg/dL (74-106); Potassium 4.4 mmol/L (3.5-5.1); Sodium 141 mmol/L (136-145)
== END 2025-04-03 16:10 | disposition home or self-care (01) ==
LOC: NCHCN 16:09
PROVIDERS: PCP Family Medicine; Visit Provider Family Medicine
DX: I13.0 Hypertensive heart and chronic kidney disease with heart failure and stage 1 through stage 4 chronic kidney disease, or unspecified chronic kidney disease (principal)
CPT/HCPCS: 80048

== ENCOUNTER 2025-05-01 15:36 | Outpatient (REF) | payer MEDICARE, MEDICAID, SELFPAY ==
[2025-05-01 15:25] LABS: HCT 32.9 % (36.0-46.0); HGB 10.5 g/dL (11.2-15.7); MCH 30.1 pg (27.0-33.0); MCHC 31.9 % (32.0-36.0); MCV 94 fL (80-95); MPV 9.5 fL (8.0-11.0); Platelet Count 245 10^3/uL (130-400); RBC 3.49 10^6/uL (3.93-5.22); RDW 14.4 % (11.7-14.6); RDW-SD 49.0 fL; WBC 6.80 10^3/uL (4.4-10.8)
[2025-05-01 15:55] LABS: TSH 7.92 uIU/mL (0.55-4.78)
[2025-05-01 16:19] LABS: Iron 50 ug/dL (50-170); Total Iron Binding Capacity 311 ug/dL (250-425)
[2025-05-01 16:28] LABS: Anion Gap 8.8 mmol/L (3-11); BUN 57 mg/dL (9-23); CO2 33.6 mmol/L (20.0-31.0); Calcium 9.2 mg/dL (8.3-10.6); Chloride 99 mmol/L (98-107); Cholesterol 264 mg/dL (<200); Glucose 76 mg/dL (74-106); HDL Cholesterol 61 mg/dL (>40); Potassium 4.1 mmol/L (3.5-5.1); Sodium 141 mmol/L (136-145)
[2025-05-01 22:39] LABS: T3,Free 3.4 pg/mL (2.8-5.3)
== END 2025-05-01 15:37 | disposition home or self-care (01) ==
LOC: NCHCN 15:36
PROVIDERS: PCP Family Medicine; Visit Provider Family Medicine
DX: D64.9 Anemia, unspecified (principal); Z13.6 Encounter for screening for cardiovascular disorders; E03.9 Hypothyroidism, unspecified; I50.22 Chronic systolic (congestive) heart failure
CPT/HCPCS: 80048; 80061; 85027; 83540; 83550; 84439; 84443; 84481

== ENCOUNTER 2025-05-30 13:53 | Outpatient (REF) | payer MEDICARE, MEDICAID, SELFPAY ==
[2025-05-30 16:51] LABS: Magnesium 2.4 mg/dL (1.6-2.6)
[2025-05-30 16:52] LABS: Anion Gap 9.9 mmol/L (3-11); BUN 49 mg/dL (9-23); CO2 32.1 mmol/L (20.0-31.0); Calcium 9.1 mg/dL (8.3-10.6); Chloride 102 mmol/L (98-107); Glucose 106 mg/dL (74-106); Potassium 4.2 mmol/L (3.5-5.1); Sodium 144 mmol/L (136-145)
[2025-05-30 17:37] LABS: HCT 31.9 % (36.0-46.0); HGB 10.0 g/dL (11.2-15.7); MCH 30.4 pg (27.0-33.0); MCHC 31.3 % (32.0-36.0); MCV 97 fL (80-95); MPV 9.8 fL (8.0-11.0); Platelet Count 245 10^3/uL (130-400); RBC 3.29 10^6/uL (3.93-5.22); RDW 14.2 % (11.7-14.6); RDW-SD 49.9 fL; WBC 7.46 10^3/uL (4.4-10.8)
== END 2025-05-30 13:54 | disposition home or self-care (01) ==
LOC: NCHCN 13:53
PROVIDERS: PCP Family Medicine; Visit Provider Family Medicine
DX: D50.9 Iron deficiency anemia, unspecified (principal)
CPT/HCPCS: 80048; 85027; 83735